=== PATIENT | female | born 1980 | race Caucasian/White ===

== ENCOUNTER 2017-01-08 17:02 | Observation (INO) ==
--- NOTE | 2017-01-08 17:48 | Emergency Department Note ---
Disposition Clinical Impression: Suicidal ideation, History of depression, History of anxiety Alcohol intoxication Qualifiers: Complication of substance-induced condition: uncomplicated Qualified Code(s): F10.120 - Alcohol abuse with intoxication, uncomplicated Disposition: Admitted As Inpatient Condition: Fair Time of Disposition: 19:25 Psych HPI - General Chief Complaint: ED Psychiatric Symptoms Stated Complaint: psych Time Seen by Provider: 01/08/17 17:24 Source: patient, family Mode of arrival: ambulatory Limitations: no limitations Nursing Notes Reviewed: Yes Vital Signs Reviewed: Yes - History of Present Illness HPI Narrative: Patient is a 36-year-old female with past medical history of anxiety and depression. She presents today due to depression, suicidal ideation. She says that she has drank "a lot of alcohol today." She says that she is feeling down and has suicidal thoughts. She will not tell me how much she drank today. She would also not tell me any further detail about what is causing her to be depressed or anxious. She denies any other chest pain, shortness breath, nausea , vomiting, fevers, diarrhea, abdominal pain. She has been admitted to [facility] the past per patient. She does not take any daily medications for anxiety and depression. - Related Data Home Medications Medication Instructions Recorded Confirmed No Known Home Drugs 07/10/16 01/08/17 Allergies Allergy/AdvReac Type Severity Reaction Status Date / Time diphenhydramine Allergy Rash Verified 08/16/16 21:06 [From Benadryl] Penicillins [PCN] Allergy Rash Verified 08/16/16 21:06 All systems ED: reviewed and negative except as stated. Constitutional: Denies: fever Cardiovascular: Denies: chest pain, palpitations Respiratory: Denies: cough, dyspnea Gastrointestinal: Denies: abdominal pain, nausea, vomiting, diarrhea Genitourinary: Denies: urgency, dysuria Musculoskeletal: Denies: back pain Integumentary: Denies: rash Psychiatric: Reports: anxiety, depression, suicidal thoughts. Denies: homicidal thoughts, auditory hallucinations, visual hallucinations Past Medical History - Past Medical History Attestation: Yes The following information was validated with the patient. Source: patient Medical history: Reports: no medical history Surgical history: Reports: non-contributory Psychiatric history: Reports: anxiety, depression MEDICAL DOCTOR MD history: Reports: no MEDICAL DOCTOR MD history - Social History Smoking Status: Current every day smoker Smokeless Tobacco Status: No Alcohol use: Reports: heavy, recent Drug use: Reports: none Physical Exam - General Limitations: no limitations General appearance: alert, other (Intoxicated) - Head Head exam: atraumatic, normocephalic, normal inspection - Eye Eye exam: Present: normal appearance, PERRL, EOMI - ENT ENT exam: normal exam, normal oropharynx, mucous membranes moist - Neck Neck exam: Present: normal inspection, full ROM, trachea midline - Chest Chest inspection: Present: normal inspection, symmetric chest wall rise - Respiratory Respiratory exam: Present: normal lung sounds bilaterally - Cardiovascular Cardiovascular exam: Present: regular rate, normal rhythm, normal heart sounds - Abdominal Exam Abdominal exam: Present: soft, Non-Tender. Absent: tenderness, distention, guarding, rebound, rigidity - Extremities Exam Extremities exam: Present: other (Small amount of bruising on the right forearm on the dorsal aspect. No tenderness to palpation or bony abnormality appreciated) - Neurological Exam Neurological exam: Present: alert, oriented X3 - Psychiatric Psychiatric exam: Present: depressed, anxious, suicidal ideation, other (Crying on exam). Absent: homicidal ideation - Skin Skin exam: Present: warm, dry, intact, normal color Course Course Narrative: Vitals within normal limits. Physical exam shows intoxicated patient, actively crying on exam. Physical exam shows a small amount of bruising on the right forearm. She will not answer any questions about how or why she has bruising there. Otherwise, the rest of the physical exam was fairly benign. We will obtain medical clearance labs and then consult [facility] for evaluation. 18:42 Patient labs show mild decrease in sodium and chloride, not concerning. WIll give IV fluids per patient request. Alcohol level 410. [facility] will not see patient until alcohol level <80. 19:15 Paged hospitalist due to prolonged time for getting patient to <80 level (calculated approx 21 hours if she clears at 15 units/hr). They have accepted the patient for admission. [place] slip was placed on the patient's chart. Dr. Carrero accepted. [facility] will need to be consulted on floor after patient alcohol level decreases below 80. Vital Signs Temperature 98.3 F 01/08/17 17:05 Pulse Rate 103 01/08/17 17:05 Respiratory Rate 18 01/08/17 17:05 Blood Pressure 123/83 01/08/17 17:05 O2 Sat by Pulse Oximetry 97 01/08/17 17:05 Temperature 98.3 F 01/08/17 17:05 Pulse Rate 103 01/08/17 18:24 Respiratory Rate 18 01/08/17 18:24 Blood Pressure 123/83 01/08/17 18:24 O2 Sat by Pulse Oximetry 97 01/08/17 18:24 Oxygen Delivery Oxygen Delivery Room Air Psych - MDM Narrative Medical decision making narrative: Vitals within normal limits. Physical exam shows intoxicated patient, actively crying on exam. Physical exam shows a small amount of bruising on the right forearm. She will not answer any questions about how or why she has bruising there. Otherwise, the rest of the physical exam was fairly benign. We will obtain medical clearance labs and then consult [facility] for evaluation. 18:42 Patient labs show mild decrease in sodium and chloride, not concerning. WIll give IV fluids per patient request. Alcohol level 410. [facility] will not see patient until alcohol level <80. 19:15 Paged hospitalist due to prolonged time for getting patient to <80 level (calculated approx 21 hours if she clears at 15 units/hr). They have accepted the patient for admission. [place] slip was placed on the patient's chart. Dr. Carrero accepted. [facility] will need to be consulted on floor after patient alcohol level decreases below 80. - Medical Records Medical records reviewed: Yes I reviewed the patient's medical records. - Lab Data Lab results reviewed: Yes I reviewed the patient's lab results. Result diagrams: 01/08/17 17:46 01/08/17 17:46 Lab Results 01/08/17 01/08/17 01/08/17 Range/Units 17:46 17:46 18:14 WBC 3.4 L (4.3-11.1) K/mcL RBC 3.87 (3.82-4.97) M/mcL Hgb 13.7 (11.5-15.4) g/dL Hct 39.2 (35.3-44.9) % MCV 101.3 H (83.0-100.0) fL MCH 35.4 H (28.0-33.3) pg MCHC 34.9 (31.6-35.5) g/dL RDW 13.0 (11.5-14.5) % Plt Count 105 L (140-400) K/mcL MPV 9.2 L (9.4-12.4) fL Immature Gran % 0.3 (0-4) % Seg Neutrophils % 47.7 % Lymphocytes % 41.2 % Monocytes % 9.9 % Eosinophils % 0.0 % Basophils % 0.9 % Neutrophils # 1.6 (1.6-8.9) K/mcL Lymphocytes # 1.4 (0.6-4.6) K/mcL Monocytes # 0.3 (0.0-1.3) K/mcL Eosinophils # 0.0 (0.0-0.6) K/mcL Basophils # 0.0 (0.0-0.2) K/mcL Sodium 135 L (136-145) mEq/L Potassium 3.6 (3.5-4.5) mEq/L Chloride 93 L (98-109) mEq/L Carbon Dioxide 14 L (19-29) mEq/L BUN 12 (7-20) mg/dL Creatinine 0.57 (0.57-1.11) mg/dL Est GFR ( Amer) > 60 (> 60) Est GFR (Non-Af Amer) > 60 (> 60) BUN/Creatinine Ratio 21 (6-26) Glucose 60 L (70-99) mg/dL Calculated Osmolality 278 L (280-300) Calcium 9.3 (8.6-10.8) mg/dL Urine Color Dark Yellow (Yellow) Urine Clarity Cloudy A (Clear) Urine pH 5.5 (5.0-8.0) pH Units Ur Specific [place] 1.027 H (1.010-1.025) Urine Protein 100 H (Neg-Trace) mg/dL Urine Glucose (UA) Normal (Normal) mg/dL Urine Ketones >=160 H (Negative) mg/dL Urine Blood Moderate H (Negative) Urine Nitrite Negative (Negative) Urine Bilirubin Negative (Negative) Urine Urobilinogen Normal (Normal) mg/dL Ur Leukocyte Esterase Negative (Negative) Urine Microscopic RBC 3-5 H (0-3) per hpf Urine Microscopic WBC 0-3 (0-3) per hpf Ur Squamous Epith Cells Many H (None-Few) per lpf Urine Bacteria Few (None-Few) per hpf Hyaline Casts None Seen (None-Few) per lpf Salicylates < 5.0 L (15-30) mg/dL Urine Opiates Screen (Fakcrp=205) ng/mL Acetaminophen < 1.0 L (10-30) mcg/mL Ur Barbiturates Screen (Xuyqfm=549) ng/mL Ur Phencyclidine Scrn (Cutoff=25) ng/mL Ur Amphetamines Screen (Pxwgrj=4481) ng/mL U Benzodiazepines Scrn (Qxfhlo=449) ng/mL Urine Cocaine Screen (Cutoff= 300) ng/mL U Marijuana (THC) Screen (Cutoff = 50) ng/mL Ethyl Alcohol 419 H (0-10) mg/dL 01/08/17 Range/Units 18:14 WBC (4.3-11.1) K/mcL RBC (3.82-4.97) M/mcL Hgb (11.5-15.4) g/dL Hct (35.3-44.9) % MCV (83.0-100.0) fL MCH (28.0-33.3) pg MCHC (31.6-35.5) g/dL RDW (11.5-14.5) % Plt Count (140-400) K/mcL MPV (9.4-12.4) fL Immature Gran % (0-4) % Seg Neutrophils % % Lymphocytes % % Monocytes % % Eosinophils % % Basophils % % Neutrophils # (1.6-8.9) K/mcL Lymphocytes # (0.6-4.6) K/mcL Monocytes # (0.0-1.3) K/mcL Eosinophils # (0.0-0.6) K/mcL Basophils # (0.0-0.2) K/mcL Sodium (136-145) mEq/L Potassium (3.5-4.5) mEq/L Chloride (98-109) mEq/L Carbon Dioxide (19-29) mEq/L BUN (7-20) mg/dL Creatinine (0.57-1.11) mg/dL Est GFR ( Amer) (> 60) Est GFR (Non-Af Amer) (> 60) BUN/Creatinine Ratio (6-26) Glucose (70-99) mg/dL Calculated Osmolality (280-300) Calcium (8.6-10.8) mg/dL Urine Color (Yellow) Urine Clarity (Clear) Urine pH (5.0-8.0) pH Units Ur Specific [place] (1.010-1.025) Urine Protein (Neg-Trace) mg/dL Urine Glucose (UA) (Normal) mg/dL Urine Ketones (Negative) mg/dL Urine Blood (Negative) Urine Nitrite (Negative) Urine Bilirubin (Negative) Urine Urobilinogen (Normal) mg/dL Ur Leukocyte Esterase (Negative) Urine Microscopic RBC (0-3) per hpf Urine Microscopic WBC (0-3) per hpf Ur Squamous Epith Cells (None-Few) per lpf Urine Bacteria (None-Few) per hpf Hyaline Casts (None-Few) per lpf Salicylates (15-30) mg/dL Urine Opiates Screen Negative (Hacnmc=335) ng/mL Acetaminophen (10-30) mcg/mL Ur Barbiturates Screen Negative (Dvreuz=744) ng/mL Ur Phencyclidine Scrn Negative (Cutoff=25) ng/mL Ur Amphetamines Screen Negative (Tiwpbd=4985) ng/mL U Benzodiazepines Scrn Negative (Ncazac=128) ng/mL Urine Cocaine Screen Negative (Cutoff= 300) ng/mL U Marijuana (THC) Screen Negative (Cutoff = 50) ng/mL Ethyl Alcohol (0-10) mg/dL Psychiatric Medical Clearance - Medical Clearance Checklist Does the patient have a NEW psychiatric condition?: No Any abnormalities indicating possible medical illness?: No Any history of medical issues?: No Medical History: No Social History Section defined Any abnormal vital signs prior to transfer?: No Current Vitals: Last Vital Signs Temp 98.3 F 01/08/17 17:05 Pulse 103 01/08/17 18:24 Resp 18 01/08/17 18:24 BP 123/83 01/08/17 18:24 Pulse Ox 97 01/08/17 18:24 Is the patient intoxicated or cognitively impaired?: Yes Psychiatric Lab Panel: Drug Levels and Toxicity 01/08/17 01/08/17 17:46 18:14 Urine Opiates Screen Negative Acetaminophen < 1.0 L Ur Barbiturates Screen Negative Ur Phencyclidine Scrn Negative Ur Amphetamines Screen Negative U Benzodiazepines Scrn Negative Urine Cocaine Screen Negative U Marijuana (THC) Screen Negative Ethyl Alcohol 419 H Abnormal Labs: Abnormal lab results WBC 3.4 K/mcL (4.3-11.1) L 01/08/17 17:46 MCV 101.3 fL (83.0-100.0) H 01/08/17 17:46 MCH 35.4 pg (28.0-33.3) H 01/08/17 17:46 Plt Count 105 K/mcL (140-400) L 01/08/17 17:46 MPV 9.2 fL (9.4-12.4) L 01/08/17 17:46 Sodium 135 mEq/L (136-145) L 01/08/17 17:46 Chloride 93 mEq/L (98-109) L 01/08/17 17:46 Carbon Dioxide 14 mEq/L (19-29) L 01/08/17 17:46 Glucose 60 mg/dL (70-99) L 01/08/17 17:46 Calculated Osmolality 278 (280-300) L 01/08/17 17:46 Urine Clarity Cloudy (Clear) A 01/08/17 18:14 Ur Specific [place] 1.027 (1.010-1.025) H 01/08/17 18:14 Urine Protein 100 mg/dL (Neg-Trace) H 01/08/17 18:14 Urine Ketones >=160 mg/dL (Negative) H 01/08/17 18:14 Urine Blood Moderate (Negative) H 01/08/17 18:14 Urine Microscopic RBC 3-5 per hpf (0-3) H 01/08/17 18:14 Ur Squamous Epith Cells Many per lpf (None-Few) H 01/08/17 18:14 Salicylates < 5.0 mg/dL (15-30) L 01/08/17 17:46 Acetaminophen < 1.0 mcg/mL (10-30) L 01/08/17 17:46 Ethyl Alcohol 419 mg/dL (0-10) H 01/08/17 17:46 S.B.A.R. - S.B.A.R. Situation: Demographics, MOA Background: Presenting Complaint, Relevant PMH, Meds, & Allergies Assessment: Vital Signs, Course and respsone to treatment, Exam Concerns, Patient/Family Expectation, Pertinant Lab Results, Outstanding Labs Recommendation: Barrier(s) to disposition, Recommendation based on pending studies, treatments, or consults S.B.A.R. Repor Time: 19:26 Attestation Statement - Attestation Attestation: I, Clint Islas, examined this patient and my medical decision-making was reviewed with the SITE OPERATIONS MANAGER/PA/Advanced Practice Nurse/Resident Physician. I agree with the documented findings, disposition and treatment plan as described except to the extent set forth below. 36-year-old female presents to the emergency department intoxicated feeling anxious and depressed. Patient admits to suicidal ideation initially and then denies it. She did not have a plan. Patient reports she is significantly depressed because her brother and father within the past year. Patient states she drank "a large amount of alcohol" today. Patient denies audio or visual hallucinations. Patient denies chest pain, shortness of breath, rash, abdominal pain, palpitations, vaginal bleeding, vaginal discharge, diarrhea. Patient's alcohol level was significantly elevated. She will be admitted to the hospital for further care and evaluation and evaluation by psychiatric team once she is sober at 8 AM.
[2017-01-08 17:56] LABS: Basophils % 0.9 %; Hematocrit 39.2 % (35.3-44.9); Hemoglobin 13.7 g/dL (11.5-15.4); Immature Granulocytes % 0.3 % (0-4); Lymphocytes # 1.4 K/mcL (0.6-4.6); Lymphocytes % 41.2 %; Mean Corpuscular HGB Conc 34.9 g/dL (31.6-35.5); Mean Corpuscular Hemoglobin 35.4 pg (28.0-33.3); Mean Corpuscular Volume 101.3 fL (83.0-100.0); Mean Platelet Volume 9.2 fL (9.4-12.4); Monocytes # 0.3 K/mcL (0.0-1.3); Monocytes % 9.9 %; Neutrophils # 1.6 K/mcL (1.6-8.9); Platelet Count 105 K/mcL (140-400); Red Blood Count 3.87 M/mcL (3.82-4.97); Segmented Neutrophils % 47.7 %
[2017-01-08 18:11] LABS: BUN/Creatinine Ratio 21 (6-26); Blood Urea Nitrogen 12 mg/dL (7-20); Calcium 9.3 mg/dL (8.6-10.8); Carbon Dioxide 14 mEq/L (19-29); Chloride 93 mEq/L (98-109); Ethanol 419 mg/dL (0-10); Glucose 60 mg/dL (70-99); Osmolality,Calculated 278 (280-300); Potassium 3.6 mEq/L (3.5-4.5); Sodium 135 mEq/L (136-145); eGFR For African Americans > 60 (> 60); eGFR For Non-African Americans > 60 (> 60)
[2017-01-08 18:17] LABS: Acetaminophen < 1.0 mcg/mL (10-30); Salicylate < 5.0 mg/dL (15-30)
[2017-01-08 18:22] LABS: Bilirubin,Urine Negative (Negative); Blood,Urine Moderate (Negative); Clarity,Urine Cloudy (Clear); Color,Urine Dark Yellow (Yellow); Glucose,Urine (UA) Normal (Normal); Ketones,Urine >=160 mg/dL (Negative); Leukocyte Esterase,Urine Negative (Negative); Nitrite,Urine Negative (Negative); PH,Urine 5.5 pH Units (5.0-8.0); Protein,Urine 100 mg/dL (Neg-Trace); Specific Gravity,Urine 1.027 (1.010-1.025); Urobilinogen,Urine Normal (Normal)
[2017-01-08 18:24] LABS: Bacteria,Urine Few per hpf (None-Few); Hyaline Casts,Urine None Seen per lpf (None-Few); Squamous Epithelial Cell,Urine Many per lpf (None-Few); WBC,Urine 0-3 per hpf (0-3)
[2017-01-08 18:28] LABS: Amphetamine Screen,Urine Negative ng/mL (Cutoff=1000); Barbiturate Screen,Urine Negative ng/mL (Cutoff=200); Benzodiazepines Screen,Urine Negative ng/mL (Cutoff=200); Cannabinoid Screen,Urine Negative ng/mL (Cutoff = 50); Cocaine Screen,Urine Negative ng/mL (Cutoff= 300); Opiate Screen,Urine Negative ng/mL (Cutoff=300); Phencyclidine Screen,Urine Negative ng/mL (Cutoff=25)
[2017-01-08] MEDS ORDERED: 0.9 % Sodium Chloride 1,000 ML IVC ONE (18:56)
[2017-01-08] MEDS ORDERED: *HR* LORazepam 2 MG/ML VIAL IVP PRN (21:43)
--- NOTE | 2017-01-08 21:51 | Internal Med History&Physical ---
Date of Encounter: 01/08/17 Time of Encounter: 21:48 Assessment and Plan (1) Suicidal ideation Current visit: Yes Status: Acute Sitter or be present at that site. Suicide precautions. Psychiatry evaluation. (2) Alcohol intoxication Current visit: Yes Status: Acute Patient drinks alcohol approximately 3 times a week. Alcohol level today is 420. She was admitted to hospital until she is sober and will be transferred to psych floor for further evaluation. Doubt that the patient will withdraw the next couple days. No prior history of local withdrawal symptoms or seizures Qualifiers: Complication of substance-induced condition: uncomplicated Qualified Code(s ): F10.120 - Alcohol abuse with intoxication, uncomplicated Internal Medicine - H&P: HPI Chief complaint: alcohol intoxication History of present illness: Ms. Stanley is a 36 year old female rock to the emergency room after binge alcohol drinking. Patient has lots of family problems and has been binge drinking alcohol more frequently recently. She drinks approximately 3 times a week. She has some ideas of not wishing to live. No active plan. Denies any overdose on any medications. Blood-alcohol level in the ER was 420. She will be hospitalized for a few hours until she is sober and will be transferred to the second-floor. Patient denies any other complaints. Past Med Surg Social Fam HX - Past Medical History Medical history: no medical history Psychiatric history: anxiety, depression - Past Surgical History Surgical History: non-contributory - Social History Smoking Status: Current every day smoker Smokeless Tobacco Status: No Alcohol use: heavy, recent Drug use: none Internal Medicine - H&P: Meds No Known Home Drugs 07/10/16 [History] Allergies diphenhydramine [From Benadryl] Allergy (Verified 08/16/16 21:06) Rash Penicillins [PCN] Allergy (Verified 08/16/16 21:06) Rash All Systems PM: A 10-system review of systems was performed and is negative for pertinent findings except as documented above in the HPI. Review of systems: 10 point review of systems is negative except for HPI. - Constitutional Vitals: Temp Pulse Resp BP Pulse Ox 98.3 F 103 18 123/83 97 01/08/17 17:05 01/08/17 18:24 01/08/17 18:24 01/08/17 18:24 01/08/17 18:24 Exam: Gen.: patient is alert oriented times 3 not in distress. Cardiac: normal S1 S2 no additional sounds chest: clear to auscultation abdomen: soft nontender nondistended lower extremity: lax calf muscles. Neuro: No focal deficits. Internal Med - H&P Results - Labs CBC & Chem 7: 01/08/17 17:46 01/08/17 17:46
[2017-01-09] MEDS: Ondansetron 4 MG/2 ML VIAL IVP PRN ×2 (00:02→09:22)
[2017-01-09] MEDS ORDERED: *HR* LORazepam 2 MG/ML VIAL IVP PRN ×2 (00:08)
[2017-01-09] MEDS: Nicotine 21 MG PATCH.TD24 TD SCH ×2 (00:17→09:25)
[2017-01-09] MEDS: Famotidine 20 MG/2 ML VIAL IVP SCH ×2 (06:27→16:14)
[2017-01-09 08:23] LABS: BUN/Creatinine Ratio 13 (6-26); Blood Urea Nitrogen 7 mg/dL (7-20); Calcium 8.7 mg/dL (8.6-10.8); Carbon Dioxide 20 mEq/L (19-29); Chloride 94 mEq/L (98-109); Ethanol 51 mg/dL (0-10); Glucose 66 mg/dL (70-99); Magnesium 1.1 mg/dL (1.6-2.6); Osmolality,Calculated 272 (280-300); Potassium 3.5 mEq/L (3.5-4.5); Sodium 133 mEq/L (136-145); eGFR For African Americans > 60 (> 60); eGFR For Non-African Americans > 60 (> 60)
[2017-01-09] MEDS ORDERED: Magnesium Sulfate 2 GM in D5% in Water 100 ML IVPB ONE (08:59)
[2017-01-09] MEDS ORDERED: Thiamine (B-1) 100 MG TABLET PO SCH (09:00)
[2017-01-09] MEDS: Folic Acid 1 MG TABLET PO SCH (09:26)
--- NOTE | 2017-01-09 11:48 | Discharge Summary ---
Date of Encounter: 01/09/17 Time of Encounter: 11:45 - Discharge Diagnosis (1) Suicidal ideation Priority: Primary Status: Acute (2) Alcohol intoxication Priority: Primary Status: Acute Qualifiers: Complication of substance-induced condition: uncomplicated Qualified Code(s ): F10.120 - Alcohol abuse with intoxication, uncomplicated - Discharge Medications Prescriptions: Famotidine [Pepcid] 20 mg PO DAILY #30 tab Ondansetron [Zofran] 4 mg PO Q8H PRN #10 tab PRN Reason: Nausea And Vomiting Home Medications: Famotidine [Pepcid] 20 mg PO DAILY #30 tab 01/09/17 [Rx] Ondansetron [Zofran] 4 mg PO Q8H PRN #10 tab 01/09/17 [Rx] Allergies/Adverse Reactions: Allergies diphenhydramine [From Benadryl] Allergy (Verified 08/16/16 21:06) Rash Penicillins [PCN] Allergy (Verified 08/16/16 21:06) Rash Date of admission: 01/08/17 21:14 Primary care physician: PCP NO Consults: 01/08/17 21:41 Consult to Psychiatry [CONS] Routine Consulting Provider: Psychiatry Heather Reason for Consult: suicidal ideation. Call Completed: No 01/09/17 11:34 Consult to Digital Printer Operator [CONS] Routine Reason for SW Consult: alcohol resources. - Patient Status Disposition: Transfer Psychiatric Hosp Condition: Fair Overall status at discharge: patient is progressing back to baseline - Discharge Instructions Follow Up With: NO,PCP [Primary Care Provider] - Interval History: Patient presented yesterday to the hospital after binge alcohol drinking and her blood-alcohol level was for 20. She had suicidal thoughts. Plan was to transfer to psych or once patient is more sober. Blood-alcohol level this morning is 52. She should be able to be transferred to the psych floor. Patient is having some epigastric pain nausea and vomiting likely related to alcoholic gastritis. No evidence of G.I. bleeding. A magnesium was 1.1 this will be replaced and rechecked. Patient does not show any current signs of alcohol withdrawal. Plan to transfer to psych floor for further psychiatric evaluation today. He has been depressed because of multiple family issues. Hospital course: Ms. Stanley is a 36 year old female - Time Spent with Patient Total time spent providing and/or coordinating discharge services: - Constitutional Vitals: Temp Pulse Resp BP Pulse Ox 98.9 F 85 15 126/80 98 01/09/17 07:59 01/09/17 07:59 01/09/17 07:59 01/09/17 07:59 01/09/17 07:59 Exam: Gen.: patient is alert oriented times 3 not in distress. Cardiac: normal S1 S2 no additional sounds or murmurs chest: fair air entry. no active wheezing. No crackles or bronchial breathing. abdomen: soft nontender nondistended normal bowel sounds neuro: no focal deficit
[2017-01-09 13:24] LABS: Magnesium 2.3 mg/dL (1.6-2.6); Potassium 3.5 mEq/L (3.5-4.5)
[2017-01-09] MEDS ORDERED: Mag Hydrox/Al Hydrox/Simeth 30 ML UDC PO PRN (13:26)
[2017-01-09] MEDS: *HR* Promethazine 25 MG/ML VIAL IVP PRN (14:04)
--- NOTE | 2017-01-09 15:10 | Psychiatry Progress Note ---
Date of Encounter: 01/09/17 Time of Encounter: 14:30 Subjective Interval history: Patient is 36 years old female admitted to the medical service for evaluation and treatment of" intoxication with a level of 420 mg./dl, in addition while intoxicated patient made suicidal comments. Psychiatric consultation was requested to evaluate suicidal ideation. On interview with the patient denied any suicidal intent or plans denied any history of previous suicide attempts and she denied any previous history of psychiatric treatment for depression or anxiety. Patient was guarded and uncooperative with evaluation and seem irritable. There are no records related to any previous treatment or psychiatric issues. Patient admitted to alcohol dependence and did not answer any questions regarding previous treatments. Objective: Exam Patient orientation: Yes Person, Yes Time, Yes Place Level of alertness: Alert, Sedated Patient appearance: Appropriate, Unkempt, Disheveled, Thin Behavior: anxious, uncooperative, guarded Psychomotor activity: Slowed Eye contact: Avoids Eye Contact Mood description: Anxious, Irritable Affect description: congruent with mood, labile, dysphoric Speech pattern: Normal rate, Normal rhythm, Normal tone, Limited Speech volume: Normal Thought process: Linear, Goal Oriented Thought content: No Suicidal ideation, No Homicidal ideation, No Overt delusions Perceptual disturbances: No Auditory hallucinations, No Visual hallucinations Judgment: Fair Insight: Partial Results - Vital Signs Vital Signs: Temp Pulse Resp BP Pulse Ox 98.5 F 89 16 123/84 99 01/09/17 12:02 01/09/17 12:02 01/09/17 12:02 01/09/17 12:02 01/09/17 12:02 - Drug Levels and Toxicology Drug Levels and Toxicology: Drug Levels and Toxicity 01/09/17 07:56 Ethyl Alcohol 51 H - Labs Labs: Laboratory Results - last 24 hr 01/09/17 01/09/17 07:56 13:03 Sodium 133 L Potassium 3.5 3.5 Chloride 94 L Carbon Dioxide 20 BUN 7 Creatinine 0.53 L Est GFR ( Amer) > 60 Est GFR (Non-Af Amer) > 60 BUN/Creatinine Ratio 13 Glucose 66 L 98 Calculated Osmolality 272 L Calcium 8.7 Magnesium 1.1 L 2.3 Ethyl Alcohol 51 H Assessment and Plan (1) Alcohol intoxication Current visit: Yes Status: Acute Plan: Continue hospitalization, Close observation, Suicide Precautions per unit protocol, Encourage participation in unit milieu, Group Therapy, Monitor sleep, Monitor appetite Additional Plan: Recommend referral to alcohol rehabilitation service. No psychiatric issue at this time. Qualifiers: Complication of substance-induced condition: uncomplicated Qualified Code(s ): F10.120 - Alcohol abuse with intoxication, uncomplicated Consult Discharge Plan - Plan Referrals: NO,PCP [Primary Care Provider] - Prescriptions: Famotidine [Pepcid] 20 mg PO DAILY #30 tab Ondansetron [Zofran] 4 mg PO Q8H PRN #10 tab PRN Reason: Nausea And Vomiting
[2017-01-09] MEDS: diazePAM 10 MG TABLET PO PRN (16:14)
[2017-01-09] MEDS ORDERED: Thiamine (B-1) 100 MG, Folic Acid 1 MG, MVI, adult with vitamin K 10 ML in 0.9 % Sodi... IVPB SCH (18:00)
[2017-01-10] MEDS: *HR* Promethazine 25 MG/ML VIAL IVP PRN (00:13)
[2017-01-10] MEDS: diazePAM 10 MG TABLET PO PRN (00:13)
[2017-01-10] MEDS: Famotidine 20 MG/2 ML VIAL IVP SCH (05:42)
[2017-01-10 07:01] VITALS: BP 126/94
[2017-01-10] MEDS: Folic Acid 1 MG TABLET PO SCH (08:09)
[2017-01-10] MEDS: Nicotine 21 MG PATCH.TD24 TD SCH (08:09)
--- NOTE | 2017-01-10 10:50 | Discharge Summary ---
Date of Encounter: 01/10/17 Time of Encounter: 10:44 - Discharge Diagnosis (1) Suicidal ideation Priority: Secondary Status: Acute (2) Alcohol intoxication Priority: Primary Status: Acute Qualifiers: Complication of substance-induced condition: uncomplicated Qualified Code(s ): F10.120 - Alcohol abuse with intoxication, uncomplicated (3) History of depression Priority: Secondary Status: Acute (4) History of anxiety Priority: Secondary Status: Acute (5) Hypomagnesemia Priority: Secondary Status: Acute - Discharge Medications Prescriptions: Famotidine [Pepcid] 20 mg PO DAILY #30 tab Ondansetron [Zofran] 4 mg PO Q8H PRN #10 tab PRN Reason: Nausea And Vomiting Home Medications: Famotidine [Pepcid] 20 mg PO DAILY #30 tab 01/09/17 [Rx] Ondansetron [Zofran] 4 mg PO Q8H PRN #10 tab 01/09/17 [Rx] Allergies/Adverse Reactions: Allergies diphenhydramine [From Benadryl] Allergy (Verified 08/16/16 21:06) Rash Penicillins [PCN] Allergy (Verified 08/16/16 21:06) Rash Date of admission: 01/08/17 21:14 Primary care physician: PCP NO Consults: 01/08/17 21:41 Consult to Psychiatry [CONS] Routine Consulting Provider: Psychiatry Heather Reason for Consult: suicidal ideation. Call Completed: Akilah 01/09/17 11:34 Consult to Asbestos Remover [CONS] Routine Reason for SW Consult: alcohol resources. - Patient Status Disposition: Home, Self-Care Condition: Good Functional capacity at discharge: independent ambulation Overall status at discharge: patient is back to baseline - Discharge Instructions Follow Up With: AKILAH,PCP [Primary Care Provider] - Subhash Jewell DO [Resident] - Additional Instructions: Avoid excessive alcohol use. Refrain from cigarette smoking. Please get an appointment with the resident clinic within the next 2 weeks. - Diet and Activity Activity: increase activity as tolerated Diet: advance to your usual diet Hospital course: Ms. Stanley is a 36 year old female with no significant past medical history, recently undergoing a stressful social and familial situation who was brought to the hospital last night and found to be intoxicated. At the time of admission was documented that she expressed suicidal ideation. She was admitted to the medical service. She was treated with IV fluids and IV magnesium for hypomagnesemia. She was given thiamine and folic acid. She was placed under one-to-one safety observation. Psychiatry was consulted and they cleared her for discharge. They noted no acute psychiatric problem. Today the patient strongly denies any suicidal thoughts or ideation. She denies any history of psychiatric disease. Denies any prior suicidal attempts. I have had a long conversation with her about her alcohol intake. I have advised cessation of alcohol intake. I have advised her to stop smoking. She has good social support system including friends and grandmother and her boyfriend. She will be discharged home. - Time Spent with Patient Total time spent providing and/or coordinating discharge services: Greater than 30 minutes - Constitutional Vitals: Temp Pulse Resp BP Pulse Ox 98.2 F 89 16 126/94 99 01/10/17 07:00 01/10/17 07:00 01/10/17 07:00 01/10/17 07:00 01/10/17 07:30 General appearance: Present: A&O X 3 - Respiratory Respiratory exam: Present: CTAB. Absent: accessory muscle use, rales, rhonchi, wheezes - Cardiovascular Cardiovascular exam: Present: RRR, +S1, +S2. Absent: diastolic murmur, gallop, rubs, systolic murmur
== END 2017-01-10 11:35 | disposition home or self-care (01) ==
LOC: EMEROO 17:02 → 3BNU 17:02 → SUATTDRO 21:14 → 3BNU 22:15
PROVIDERS: ADMIT Hospitalist; ATTEND Internal Medicine

== ENCOUNTER 2017-02-12 13:28 | Inpatient (IN) ==
[2017-02-12 14:13] LABS: Hematocrit 36.8 % (35.3-44.9); Hemoglobin 13.6 g/dL (11.5-15.4); Mean Corpuscular Hemoglobin 35.5 pg (28.0-33.3); Mean Corpuscular Volume 96.1 fL (83.0-100.0); Mean Platelet Volume 11.5 fL (9.4-12.4); Platelet Count 120 K/mcL (140-400); Red Blood Count 3.83 M/mcL (3.82-4.97); Red Cell Distribution Width 11.9 % (11.5-14.5)
[2017-02-12 14:31] LABS: Calcium 8.7 mg/dL (8.6-10.8); Ethanol 35 mg/dL (0-10)
[2017-02-12 14:32] LABS: Acetaminophen < 1.0 mcg/mL (10-30); Salicylate < 5.0 mg/dL (15-30)
[2017-02-12 14:35] LABS: Potassium 2.5 mEq/L (3.5-4.5)
[2017-02-12] MEDS: 0.9 % Sodium Chloride 1,000 ML IVC SCH ×6 (14:38→17:21)
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
[2017-02-12 15:22] LABS: Albumin/Globulin Ratio 0.8 (1.1-2.2); Bilirubin,Direct 3.8 mg/dL (0.0-0.5); Bilirubin,Indirect 1.1 mg/dL (0.0-1.2); Bilirubin,Total 4.9 mg/dL (0.2-1.2)
[2017-02-12] MEDS ORDERED: Ondansetron 4 MG/2 ML VIAL IVP ONE (15:48)
[2017-02-12] MEDS ORDERED: Pantoprazole 40 MG VIAL IVP ONE (16:10)
[2017-02-12] MEDS ORDERED: Octreotide 50 MCG/ML SYRINGE IVP ONE (16:10)
--- NOTE | 2017-02-12 16:31 | Pulmonology History & Physical ---
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 Ethyl alcohol level currently 35. Patient is a lethargic and slow to answer questions, poor historian. Suspect is secondary to intoxication. Patient is very cachectic and frail, with a dissheveled appearance. Sensation intact, able to follow commands and move all 4 extremities. Pulmonary: Patient has been vomiting and coughing, chest x-ray reveals no acute process, infiltrate or effusion. On exam patient has coarse rhonchi, pt is at risk for aspiration. We will continue to monitor Cardiovascular: Patient is tachycardic with a regular rhythm, patient does not appear hypovolemic on exam. GI: Patient with history of alcoholism, last drink was several shots of vodka last evening. Patient has hepatomegaly, pancreatitis with a lipase of 3463, hematemesis, stool occult blood positive, lactate 9. Patient is nauseous and vomiting kalyan blood during the interview. There is concern for alcohol cirrhosis and possible esophageal varices. With her constant retching she has at risk to have rupture of varices if they are present. Plan to keep her NPO, treat her nausea with Zofran, octreotide and Protonix drip, will hydrate her with 1 L NS at 125 an hour, and lactate. Plan to have 4 L of blood typed and crossmatched in case she develops acute esophageal varices bleeding overnight. Dr. Mandel has been consulted and is aware of the patient. Renal:JULY: SCr 1.85, patient also received contrast dye during abdominal CT. Patient is hypokalemic and hyponatremic with an elevated lactate at 9 and an anion gap of 32. Will replete potassium, patient has received 1 L normal saline , will give second liter at 125 an hour. Trend lactate level and repeat labs in the morning awaiting serum osmolality. ID: No leukocytosis, no evidence of infection Heme/Onc: Hematemesis, stool occult blood positive, H/H stable. 4 units on hold if patient has acute esophageal rupture overnight. Will monitor CBC Endocrine: Stable DVT Prophylaxis: scds Nutrition: NPO GI Prophylaxis: protonix gtt Lines: all lines checked and no evidence of infections Skin: skin care to prevent pressure ulcers per nursing routine care. CODE STATUS: FULL CODE Qualifiers: Pancreatitis type: alcohol induced Acute pancreatitis complication: no infection or necrosis Qualified Code(s): K85.20 - Alcohol induced acute pancreatitis without necrosis or infection (2) Hematemesis with nausea Current visit: Yes Status: Acute (3) Acute renal failure Current visit: Yes Status: Acute Qualifiers: Acute renal failure type: unspecified Qualified Code(s): N17.9 - Acute kidney failure, unspecified (4) Alcohol intoxication Current visit: Yes Status: Acute Qualifiers: Complication of substance-induced condition: with unspecified complication Qualified Code(s): F10.129 - Alcohol abuse with intoxication, unspecified (5) Hyponatremia Current visit: Yes Status: Acute (6) Hypokalemia Current visit: Yes Status: Acute (7) Occult blood positive stool Current visit: Yes Status: Acute History of Present Illness Chief complaint: Ear pain HPI: Ms. Stanley is a 36 year old female with a PMH of alcoholism who presents from her primary care clinic with concerns from her PCP of hypotension, dehydration, lethargy and possible sepsis. The patient stats that she has been "unable to walk" secondary to dizziness for the last 4 days. She states that for the last 2 days she has had diffuse, non-radiating aching abdominal with associated nausea and hematemesis. Her pain is constant and she is unable to keep anything down. She states that she has had a declining appetite for several weeks. She normally drinks about one bottle of wine daily. Last night she had several shots of vodka. She denies significant medical history. Per her uncle she does have a history of alcoholism and has been through AA but is still drinking and she did not drink today but did drink last night and her uncle said that she did not between one half and one fifth of vodka per day. Patient does not use IV drugs. The patient is very lethargic during the interview and a poor historian. Past Med Surg Social Fam HX - Past Medical History Medical history: no medical history Psychiatric history: anxiety, depression - Past Surgical History Surgical History: non-contributory - Social History Smoking Status: Current some day smoker Smokeless Tobacco Status: No Alcohol use: occasionally Drug use: none - Family History Father Hx Family Cardiac Disorders: Yes (HTN, aneurism) Medications and Allergies Ibuprofen [Motrin] 400 mg PO Q6-8H PRN 02/12/17 [History] Allergies diphenhydramine [From Benadryl] Allergy (Verified 01/24/17 08:16) Rash Penicillins [PCN] Allergy (Verified 01/24/17 08:16) Rash All Systems: A 10-system review of systems was performed and is negative for pertinent findings except as documented above in the HPI. - Constitutional Constitutional: anorexia, fatigue, weakness, no chills, no excessive sweating, no fever(s), no headache(s) - EENT Eyes: no loss of peripheral vision, no loss of vision Ears: other (ear pain) Nose, mouth and throat: dizziness, no headache(s) - Cardiovascular Cardiovascular: lightheadedness, no chest pain, no dyspnea, no leg edema - Respiratory Respiratory: cough, hemoptysis, no dyspnea - Gastrointestinal Gastrointestinal: hematemesis, nausea, vomiting, no diarrhea, no melena - Genitourinary Genitourinary: no dysuria - Musculoskeletal Musculoskeletal: weakness, no back pain, no numbness, no tingling - Integumentary Integumentary: no erythema, no rash - Neurological Neurological: dizziness, weakness ("unable to walk") - Hematologic/Lymphatic Hematologic/Lymphatic: no easy bruising Physical Examination General appearance: lethargic, other (cachectic and dissheveled) Eyes: nonicteric ENT: oropharynx dry Neck: supple, no lymphadenopathy, no JVD Effort: normal Auscultation: right: rhonchi Cardiovascular: other (tachycardic with a regular rhythm) Gastrointestinal: hypoactive bowel sounds, soft, tender (diffuse), non-distended Integumentary: other (multiple excoriations) Extremities: no cyanosis, no edema, no clubbing, pulses normal, cool Musculoskeletal: no deformities pupils equal and round, other (patiet is lethargic ) other (flat affect) Results - Laboratory Findings CBC and BMP: 02/12/17 14:04 02/12/17 14:04 Abnormal lab findings: Abnormal lab results MCH 35.5 pg (28.0-33.3) H 02/12/17 14:04 MCHC 37.0 g/dL (31.6-35.5) H 02/12/17 14:04 Plt Count 120 K/mcL (140-400) L 02/12/17 14:04 Sodium 121 mEq/L (136-145) L 02/12/17 14:04 Potassium 2.5 mEq/L (3.5-4.5) L* 02/12/17 14:04 Chloride 78 mEq/L (98-109) L 02/12/17 14:04 Carbon Dioxide 11 mEq/L (19-29) L 02/12/17 14:04 BUN 21 mg/dL (7-20) H 02/12/17 14:04 Creatinine 1.85 mg/dL (0.57-1.11) H 02/12/17 14:04 Est GFR ( Amer) 38 (> 60) L 02/12/17 14:04 Est GFR (Non-Af Amer) 31 (> 60) L 02/12/17 14:04 Glucose 101 mg/dL (70-99) H 02/12/17 14:04 Calculated Osmolality 255 (280-300) L 02/12/17 14:04 Lactic Acid 9.0 mmol/L (0.5-2.2) H* 02/12/17 14:04 Total Bilirubin 4.9 mg/dL (0.2-1.2) H 02/12/17 14:04 Direct Bilirubin 3.8 mg/dL (0.0-0.5) H 02/12/17 14:04 AST 467 Units/L (5-34) H 02/12/17 14:04 ALT 73 Units/L (0-55) H 02/12/17 14:04 Alkaline Phosphatase 322 Units/L (38-126) H 02/12/17 14:04 Albumin 3.0 g/dL (3.5-5.0) L 02/12/17 14:04 Globulin 4.0 g/dL (2.4-3.5) H 02/12/17 14:04 Albumin/Globulin Ratio 0.8 (1.1-2.2) L 02/12/17 14:04 Lipase 3463 Units/L (8-78) H 02/12/17 14:04 Salicylates < 5.0 mg/dL (15-30) L 02/12/17 14:04 Acetaminophen < 1.0 mcg/mL (10-30) L 02/12/17 14:04 Ethyl Alcohol 35 mg/dL (0-10) H 02/12/17 14:04 - Diagnostic Findings Chest x-ray: report reviewed, image reviewed Additional studies: Chest X-Ray 02/12/17 13:46 IMPRESSION: Unremarkable chest without acute cardiopulmonary process. D/ / Rinku Aly MD / Rinku Aly MD Interpreting Provider: Rinku Aly MD Head CT 02/12/17 13:46 IMPRESSION: No acute intracranial abnormality. D/ / 02/12/2017 15:14:34 Kyle Hernandez MD / Larisa Ho Interpreting Provider: Kyle Hernandez MD Abdomen/Pelvis CT 02/12/17 13:52 IMPRESSION: Marked inflammatory changes are seen surrounding the body and tail of the pancreas, and minimally adjacent to the head of the pancreas concerning for possible acute pancreatitis. Correlate with pancreatic enzymes. There is also a small amount of left upper quadrant fluid, as well as a small volume of pelvic ascites, though to a lesser degree than on the previous study in 2016. Uncertain if this fluid may be reactive to the acute inflammatory process around the pancreas, or FA could be related to liver congestion.. There is hepatomegaly with diffuse hepatic steatosis. D/ / Rinku Aly MD / Rinku Aly MD Interpreting Provider: Rinku Aly MD <Farhat Singh - Last Filed: 02/12/17 17:49> Date of Encounter: 02/12/17 History of Present Illness HPI: Ms. Stanley is a 36 year old female All Systems: A 10-system review of systems was performed and is negative for pertinent findings except as documented above in the HPI. Physical Examination Vital Signs: Vital Signs, Last 4 Hours Pulse Resp BP Pulse Ox 02/12/17 17:22 18 111/95 02/12/17 16:37 18 16 108/78 96 Results - Laboratory Findings CBC and BMP: 02/12/17 14:04 02/12/17 14:04 Abnormal lab findings: Abnormal lab results MCH 35.5 pg (28.0-33.3) H 02/12/17 14:04 MCHC 37.0 g/dL (31.6-35.5) H 02/12/17 14:04 Plt Count 120 K/mcL (140-400) L 02/12/17 14:04 Sodium 121 mEq/L (136-145) L 02/12/17 14:04 Potassium 2.5 mEq/L (3.5-4.5) L* 02/12/17 14:04 Chloride 78 mEq/L (98-109) L 02/12/17 14:04 Carbon Dioxide 11 mEq/L (19-29) L 02/12/17 14:04 BUN 21 mg/dL (7-20) H 02/12/17 14:04 Creatinine 1.85 mg/dL (0.57-1.11) H 02/12/17 14:04 Est GFR ( Amer) 38 (> 60) L 02/12/17 14:04 Est GFR (Non-Af Amer) 31 (> 60) L 02/12/17 14:04 Glucose 101 mg/dL (70-99) H 02/12/17 14:04 POC Glucose 91 (58-89) H 02/12/17 17:31 Serum Osmolality 273 mOsm/kg (280-300) L 02/12/17 17:05 Calculated Osmolality 255 (280-300) L 02/12/17 14:04 Lactic Acid 5.0 mmol/L (0.5-2.2) H* 02/12/17 17:05 Total Bilirubin 4.9 mg/dL (0.2-1.2) H 02/12/17 14:04 Direct Bilirubin 3.8 mg/dL (0.0-0.5) H 02/12/17 14:04 AST 467 Units/L (5-34) H 02/12/17 14:04 ALT 73 Units/L (0-55) H 02/12/17 14:04 Alkaline Phosphatase 322 Units/L (38-126) H 02/12/17 14:04 Albumin 3.0 g/dL (3.5-5.0) L 02/12/17 14:04 Globulin 4.0 g/dL (2.4-3.5) H 02/12/17 14:04 Albumin/Globulin Ratio 0.8 (1.1-2.2) L 02/12/17 14:04 Lipase 3463 Units/L (8-78) H 02/12/17 14:04 Stool Occult Blood Positive (Negative) A 02/12/17 16:00 Salicylates < 5.0 mg/dL (15-30) L 02/12/17 14:04 Acetaminophen < 1.0 mcg/mL (10-30) L 02/12/17 14:04 Ethyl Alcohol 35 mg/dL (0-10) H 02/12/17 14:04 - Attending Attestation I examined the patient reviewed documentation. All pertinent radiographic and laboratory studies were reviewed. I agree with the resident's documentation with the following addition. Neuro: Somewhat lethargic and delivered speech most likely related to acute alcohol intoxication. Patient's overall appearance is suggestive long-term alcohol abuse. Plan for [place] protocol although would not expect onset of alcohol withdrawal bruits 24 more hours. Also obtain UDS. Cardiovascular: Tachycardic and initially reported hypotensive by ED. Hemodynamic stable following relatively low volume resuscitation. Pulmonary: Oxygenating apparently ventilating well. Chest x-ray does not indicate any acute process. Nephro: Acute kidney injury, anion gap metabolic acidosis, hyponatremia, hypokalemia. Acidosis most likely related to elevated serum lactate. Given alcohol history and unknown ingestions, plan to calculate [place] gap for evidence of other alcohol ingestion. Continue volume resuscitation with normal saline 125 mL per hour for 1-2 L. Obtain urologic [place]. Insert [place] catheter to monitor strict I's and O's. Obtain blood gas will assessment of acid base. Bedtime patient arrives in ICU, serum lactate head are decreased from 9 to 5. Expect that anion gap will improve his well with lactic clearance. The serum bicarbonate remains low, consider initiation of bicarbonate drip. GI: Abdominal pain with elevated lipase and radiographic evidence of pancreatic necrosis with history of excessive alcohol consumption. Consistent with pancreatitis. Keep patient nothing by mouth begin volume resuscitation. Hematemesis witnessed during interview and ED. Given known EtOH history suspect possible early onset cirrhosis and consider the possibility of esophageal varices versus gastric erosion or ulceration. Type and cross 4 units PRBC and initiate PPI and octreotide drips. GI has been consult. ID: Possible upper GI bleed and no evidence of ascites. No evidence of active infection. No indication Pedvax this time. HO: Concern for upper GI bleed. Patient had across her 4 units PRBCs. Coags pending. If evidence of coagulopathy, consider reversal with FFP or PCC. Endocrine: Known history of DM. Disposition admit to MICU
[2017-02-12] MEDS ORDERED: Naloxone 0.4 MG/ML INJ IVP PRN (16:33)
[2017-02-12] MEDS ORDERED: 0.9 % Sodium Chloride 1,000 ML IVC SCH (16:45)
[2017-02-12] MEDS ORDERED: *HR* HYDROmorphone (PF) 1 MG/ML SYRINGE IVP ONE (17:30)
[2017-02-12] MEDS: Pantoprazole 40 MG in 0.9 % Sodium Chloride Mini Bag 100 ML IVC SCH ×2 (17:32→22:10)
[2017-02-12] MEDS ORDERED: *HR* LORazepam 2 MG/ML VIAL IVP PRN (17:32)
[2017-02-12] MEDS: Octreotide 400 MCG in 0.9 % Sodium Chloride 100 ML IVC SCH (17:46)
[2017-02-12 17:56] LABS: ABG Base Excess -5.6 mEq/L (-2.0 to 3.0); ABG Oxygen Saturation 96 % (95-98); ABG PCO2 25 mmHg (35-45); ABG PH 7.44 pH Units (7.32-7.45); ABG PO2 76 mmHg (85-104); ABG TCO2 17.8 mEq/L (20-26)
[2017-02-12 17:57] LABS: Blood Gas FiO2 21 %
[2017-02-12 18:26] LABS: Creatinine,Urine 153 mg/dL
[2017-02-12 18:30] LABS: Chloride,Urine < 20 mEq/L; Sodium, Urine < 20.0 mEq/L
[2017-02-12] MEDS: Thiamine (B-1) 100 MG, Folic Acid 1 MG, MVI, adult with vitamin K 10 ML in 0.9 % Sodi... IVPB SCH (18:45)
[2017-02-12 18:54] LABS: INR 1.3; Prothrombin Time 14.3 Seconds (9.4-12.1)
[2017-02-12 18:56] LABS: Activated Partial Thrombo Time 31.2 Seconds (26.0-36.0)
[2017-02-12 19:07] LABS: Osmolality,Urine 416 mOsm/kg (300-1090)
[2017-02-12] MEDS ORDERED: *HR* Morphine 2 MG/ML SYRINGE IVP PRN (21:50)
[2017-02-12] MEDS: *HR* LORazepam 2 MG/ML VIAL IVP PRN (21:52)
[2017-02-12] MEDS ORDERED: 0.9 % Sodium Chloride w KCl 20 MEQ/1,000 ML MLS IVC SCH (22:00)
[2017-02-12 22:53] LABS: Bilirubin,Urine Large (Negative); Blood,Urine Large (Negative); Clarity,Urine Cloudy (Clear); Color,Urine Orange (Yellow); Glucose,Urine (UA) Normal (Normal); Ketones,Urine 40 mg/dL (Negative); Leukocyte Esterase,Urine Small (Negative); Nitrite,Urine Positive (Negative); Protein,Urine 100 mg/dL (Neg-Trace); Specific Gravity,Urine > 1.030 (1.010-1.025); Urobilinogen,Urine Normal (Normal)
[2017-02-12 22:55] LABS: Bacteria,Urine Many per hpf (None-Few); Squamous Epithelial Cell,Urine Many per lpf (None-Few); WBC,Urine 30-50 per hpf (0-3)
[2017-02-12 22:59] LABS: Amphetamine Screen,Urine Negative ng/mL (Cutoff=1000); Barbiturate Screen,Urine Negative ng/mL (Cutoff=200); Benzodiazepines Screen,Urine Negative ng/mL (Cutoff=200); Cannabinoid Screen,Urine Negative ng/mL (Cutoff = 50); Cocaine Screen,Urine Negative ng/mL (Cutoff= 300); Opiate Screen,Urine Negative ng/mL (Cutoff=300); Phencyclidine Screen,Urine Negative ng/mL (Cutoff=25)
[2017-02-12 23:03] LABS: Hyaline Casts,Urine Moderate per lpf (None-Few)
[2017-02-12 23:03] LABS: BUN/Creatinine Ratio 16 (6-26); Blood Urea Nitrogen 19 mg/dL (7-20); Calcium 7.8 mg/dL (8.6-10.8); Carbon Dioxide 12 mEq/L (19-29); Chloride 88 mEq/L (98-109); Glucose 73 mg/dL (70-99); Osmolality,Calculated 257 (280-300); Sodium 123 mEq/L (136-145); eGFR For African Americans > 60 (> 60); eGFR For Non-African Americans 52 (> 60)
[2017-02-12 23:04] LABS: Chol/HDL Ratio 36.2 (0-4.9); Cholesterol 181 mg/dL (< 200); HDL Cholesterol 5 mg/dL (40-59); Triglycerides 1248 mg/dL (< 150)
[2017-02-12 23:04] LABS: RBC,Urine 0-3 per hpf (0-3)
[2017-02-13] MEDS: *HR* LORazepam 2 MG/ML VIAL IVP PRN ×3 (01:15→06:08)
[2017-02-13 02:14] LABS: Red Blood Count 3.25 M/mcL (3.82-4.97)
[2017-02-13 02:16] LABS: Basophils % 0.4 %; Hematocrit 31.8 % (35.3-44.9); Hemoglobin 11.3 g/dL (11.5-15.4); Immature Platelets 16.4 % (1.1-6.1); Lymphocytes # 0.5 K/mcL (0.6-4.6); Lymphocytes % 10.6 %; Mean Corpuscular HGB Conc 35.5 g/dL (31.6-35.5); Mean Corpuscular Hemoglobin 34.8 pg (28.0-33.3); Mean Corpuscular Volume 97.8 fL (83.0-100.0); Mean Platelet Volume 12.1 fL (9.4-12.4); Monocytes # 0.3 K/mcL (0.0-1.3); Monocytes % 6.3 %; Neutrophils # 4.1 K/mcL (1.6-8.9); Nucleated Red Blood Cells 1.2 /100 WBC (0); Red Cell Distribution Width 12.5 % (11.5-14.5); Segmented Neutrophils % 80.7 %
[2017-02-13 02:19] LABS: Platelet Count 95 K/mcL (140-400)
[2017-02-13 02:29] LABS: Blood Urea Nitrogen 16 mg/dL (7-20); Chloride 93 mEq/L (98-109); Potassium 2.9 mEq/L (3.5-4.5); Sodium 124 mEq/L (136-145)
[2017-02-13 02:30] LABS: Alanine Aminotransferase 65 Units/L (0-55); Albumin 2.4 g/dL (3.5-5.0); Albumin/Globulin Ratio 0.8 (1.1-2.2); Alkaline Phosphatase 285 Units/L (38-126); Aspartate Amino Transferase 440 Units/L (5-34); BUN/Creatinine Ratio 18 (6-26); Bilirubin,Total 4.7 mg/dL (0.2-1.2); Calcium 7.1 mg/dL (8.6-10.8); Globulin 3.1 g/dL (2.4-3.5); Glucose 78 mg/dL (70-99); Magnesium 1.2 mg/dL (1.6-2.6); Osmolality,Calculated 258 (280-300); eGFR For African Americans > 60 (> 60); eGFR For Non-African Americans > 60 (> 60)
[2017-02-13 02:33] LABS: Total Protein 5.5 g/dL (6.0-8.3)
[2017-02-13 02:34] LABS: Carbon Dioxide 9 mEq/L (19-29)
[2017-02-13 02:37] LABS: Platelet Estimate Decreased (Normal)
[2017-02-13] MEDS ORDERED: Magnesium Sulfate 2 GM in D5% in Water 100 ML IVPB ONE (02:44)
[2017-02-13] MEDS ORDERED: 0.9 % Sodium Chloride w KCl 40 MEQ/1,000 ML MLS IVC SCH (02:45)
[2017-02-13] MEDS: Pantoprazole 40 MG in 0.9 % Sodium Chloride Mini Bag 100 ML IVC SCH ×5 (02:59→23:51)
[2017-02-13 05:12] LABS: VBG HCO3 8.5 mEq/L (21-27); VBG PH 7.26 pH Units (7.32-7.42)
[2017-02-13] MEDS: Ondansetron 4 MG/2 ML VIAL IVP PRN (06:07)
--- NOTE | 2017-02-13 07:43 | Pulmonology Progress Note ---
<Mickie River - Last Filed: 02/13/17 10:55> Date of Encounter: 02/13/17 Time of Encounter: 07:40 Assessment and Plan (1) Acute pancreatitis Current Visit: Yes Status: Acute MANAGER PSYCHOLOGY: Patient has a history of alcoholism, drink multiple shots of vodka yesterday evening. Patient is a lethargic and slow to answer questions, poor historian, very cachectic and frail, with a dissheveled appearance. Sensation intact, able to follow commands and move all 4 extremities. She does not always follow commands accurately. Fine tremor noted. Patient on CIWA protocol with increased CIWA scores of 11, 10 overnight and was given ativan. Suspect withdrawl, continue CIWA protocol. Pulmonary: Patient has been vomiting and coughing, chest x-ray reveals no acute process, infiltrate or effusion. On exam patient has coarse rhonchi, pt is at risk for aspiration. We will continue to monitor Cardiovascular: Patient is tachycardic with a regular rhythm, patient does not appear hypovolemic on exam. GI: Patient with history of alcoholism, last drink was several shots of vodka . Patient has hepatomegaly, pancreatitis with a lipase of 3463, hematemesis, stool occult blood positive, lactate 9. Lactate has normalized, no emesis overnight.There is concern for alcohol cirrhosis and possible esophageal varices. 4L blood on hold. Plan to keep her NPO, treat her nausea with Zofran, octreotide and Protonix drip. Dr. Mandel has been consulted and is aware of the patient. Renal:JULY resolved. UOP 870 since admission. Lactate has normalized, AG 22. Patient is hypokalemic and hyponatremic. Will replete potassium and sodium, on electrolyte protocol. Will start bicarb gtt in D5 at 125 an hour. Will monitor CO closely until her AG closes. ID: No leukocytosis, patient does have a bacteruria, will treat with ceftriaxone 1gm daily Heme/Onc: Hematemesis, stool occult blood positive, H/H stable. No hematemesis or stool overnight. 4 units on hold if patient has acute esophageal rupture overnight. Will monitor CBC Endocrine: BS in 70's, ketones in urine. AG persists at 22, Bicarb 9. May be alcoholic ketosis. Will give amp D50 and start bicarb gtt in D5 at 125/hr, hypoglycemia protocol DVT Prophylaxis: scds Nutrition: NPO GI Prophylaxis: protonix gtt Lines: all lines checked and no evidence of infections: corona, peripheral IV. Will place EPIV as patient pulled out one of her peripherals Skin: skin care to prevent pressure ulcers per nursing routine care. CODE STATUS: FULL CODE Qualifiers: Pancreatitis type: alcohol induced Acute pancreatitis complication: no infection or necrosis Qualified Code(s): K85.20 - Alcohol induced acute pancreatitis without necrosis or infection (2) Hematemesis with nausea Current Visit: Yes Status: Acute (3) Acute renal failure Current Visit: Yes Status: Acute Qualifiers: Acute renal failure type: unspecified Qualified Code(s): N17.9 - Acute kidney failure, unspecified (4) Alcohol intoxication Current Visit: Yes Status: Acute Qualifiers: Complication of substance-induced condition: with unspecified complication Qualified Code(s): F10.129 - Alcohol abuse with intoxication, unspecified (5) Hyponatremia Current Visit: Yes Status: Acute (6) Hypokalemia Current Visit: Yes Status: Acute (7) Occult blood positive stool Current Visit: Yes Status: Acute Subjective Principal diagnosis: Hematemesis, Acute Pancreatitis Interval history: The patient was seen and examined today. She is lethargic and arouses slowly to voice. She states that her abdomen hurts and that she is tired. She did become tachycardic, tachypnic with increased temp and tremors overnight. She was given ativan per CIWA protocol and symptoms improved. She did not have any episodes of emesis or BM overnight. Objective PUL Vital signs: Last Vital Signs Temp 100.8 F H 02/13/17 04:00 Pulse 111 02/13/17 06:00 Resp 20 02/13/17 06:00 BP 139/104 02/13/17 06:00 Pulse Ox 97 02/13/17 06:00 General appearance: lethargic, asleep Eyes: icteric ENT: oropharynx dry Neck: supple, no lymphadenopathy, no JVD Effort: normal Auscultation: right: rhonchi Cardiovascular: other (tachycardic, sinus rhythm) Gastrointestinal: hypoactive bowel sounds, tender Integumentary: other (multiple excoriations) Extremities: no cyanosis, no edema, pulses normal, cool Musculoskeletal: no deformities pupils equal and round, motor strength normal and symmetric, other (patient follows commands, does not have appropriate response to commands every time.) other (lethargic, flat affect) Results - Laboratory Findings CBC and BMP: 02/13/17 02:02 02/13/17 09:41 ABG ABG pH 7.44 pH Units (7.32-7.45) 02/12/17 17:40 ABG pCO2 25 mmHg (35-45) L 02/12/17 17:40 ABG pO2 76 mmHg (85-104) L 02/12/17 17:40 ABG O2 Saturation 96 % (95-98) 02/12/17 17:40 PT/INR, D-dimer PT 14.3 Seconds (9.4-12.1) H 02/12/17 18:12 Abnormal lab findings: Abnormal lab results RBC 3.25 M/mcL (3.82-4.97) L 02/13/17 02:02 Hgb 11.3 g/dL (11.5-15.4) L D 02/13/17 02:02 Hct 31.8 % (35.3-44.9) L 02/13/17 02:02 MCH 34.8 pg (28.0-33.3) H 02/13/17 02:02 Plt Count 95 K/mcL (140-400) L 02/13/17 02:02 Lymphocytes # 0.5 K/mcL (0.6-4.6) L 02/13/17 02:02 Nucleated RBCs/100 WBC 1.2 /100 WBC (0) H 02/13/17 02:02 Platelet Estimate Decreased (Normal) L 02/13/17 02:02 Immature Plt Fraction 16.4 % (1.1-6.1) H 02/13/17 02:02 PT 14.3 Seconds (9.4-12.1) H 02/12/17 18:12 ABG pCO2 25 mmHg (35-45) L 02/12/17 17:40 ABG pO2 76 mmHg (85-104) L 02/12/17 17:40 ABG HCO3 17.0 mEQ/L (21-27) L 02/12/17 17:40 ABG Total CO2 17.8 mEq/L (20-26) L 02/12/17 17:40 ABG Base Excess -5.6 mEq/L (-2.0 to 3.0) L 02/12/17 17:40 VBG pH 7.26 pH Units (7.32-7.42) L 02/13/17 05:02 VBG pCO2 19 mmHg (41-51) L 02/13/17 05:02 VBG pO2 161 mmHg (25-40) H 02/13/17 05:02 VBG HCO3 8.5 mEq/L (21-27) L 02/13/17 05:02 Sodium 124 mEq/L (136-145) L 02/13/17 02:02 Potassium 2.9 mEq/L (3.5-4.5) L 02/13/17 02:02 Chloride 93 mEq/L (98-109) L 02/13/17 02:02 Carbon Dioxide 9 mEq/L (19-29) L* 02/13/17 02:02 POC Glucose 91 (58-89) H 02/12/17 17:31 Serum Osmolality 273 mOsm/kg (280-300) L 02/12/17 17:05 Calculated Osmolality 258 (280-300) L 02/13/17 02:02 Calcium 7.1 mg/dL (8.6-10.8) L 02/13/17 02:02 Magnesium 1.2 mg/dL (1.6-2.6) L 02/13/17 02:02 Total Bilirubin 4.7 mg/dL (0.2-1.2) H 02/13/17 02:02 Direct Bilirubin 3.8 mg/dL (0.0-0.5) H 02/12/17 14:04 AST 440 Units/L (5-34) H 02/13/17 02:02 ALT 65 Units/L (0-55) H 02/13/17 02:02 Alkaline Phosphatase 285 Units/L (38-126) H 02/13/17 02:02 Serum Total Protein 5.5 g/dL (6.0-8.3) L D 02/13/17 02:02 Albumin 2.4 g/dL (3.5-5.0) L 02/13/17 02:02 Albumin/Globulin Ratio 0.8 (1.1-2.2) L 02/13/17 02:02 Triglycerides 1248 mg/dL (< 150) H 02/12/17 22:38 HDL Cholesterol 5 mg/dL (40-59) L 02/12/17 22:38 Cholesterol/HDL Ratio 36.2 (0-4.9) H 02/12/17 22:38 Lipase 3463 Units/L (8-78) H 02/12/17 14:04 Urine Color [place] (Yellow) A 02/12/17 22:15 Urine Clarity Cloudy (Clear) A 02/12/17 22:15 Ur Specific Fossil > 1.030 (1.010-1.025) H 02/12/17 22:15 Urine Protein 100 mg/dL (Neg-Trace) H 02/12/17 22:15 Urine Ketones 40 mg/dL (Negative) H 02/12/17 22:15 Urine Blood Large (Negative) H 02/12/17 22:15 Urine Nitrite Positive (Negative) A 02/12/17 22:15 Urine Bilirubin Large (Negative) H 02/12/17 22:15 Ur Leukocyte Esterase Small (Negative) H 02/12/17 22:15 Urine Microscopic WBC 30-50 per hpf (0-3) H 02/12/17 22:15 Ur Squamous Epith Cells Many per lpf (None-Few) H 02/12/17 22:15 Urine Bacteria Many per hpf (None-Few) H 02/12/17 22:15 Hyaline Casts Moderate per lpf (None-Few) H 02/12/17 22:15 Ur Culture Indicated? YES (NO) A 02/12/17 22:15 Stool Occult Blood Positive (Negative) A 02/12/17 16:00 Salicylates < 5.0 mg/dL (15-30) L 02/12/17 14:04 Acetaminophen < 1.0 mcg/mL (10-30) L 02/12/17 14:04 Ethyl Alcohol 35 mg/dL (0-10) H 02/12/17 14:04 - Clinical Findings Intake & Output: Intake & Output 02/12/17 02/12/17 02/13/17 15:59 23:59 07:59 Intake Total 1999 1115.2 / 1115.2 Output Total 390 / 390 400 / 400 Balance 1610 / 1610 715.2 / 715.2 Weight 41.5 kg Consult Discharge Plan - Plan Referrals: Dejan Ratliff MD [Primary Care Provider] - <Farhat Singh - Last Filed: 02/13/17 15:41> Date of Encounter: 02/13/17 Objective PUL Vital signs: Last Vital Signs Temp 99.3 F 02/13/17 11:00 Pulse 108 02/13/17 15:23 Resp 18 02/13/17 15:00 BP 108/74 02/13/17 15:00 Pulse Ox 95 02/13/17 15:00 Results - Laboratory Findings CBC and BMP: 02/13/17 02:02 02/13/17 09:41 ABG ABG pH 7.44 pH Units (7.32-7.45) 02/12/17 17:40 ABG pCO2 25 mmHg (35-45) L 02/12/17 17:40 ABG pO2 76 mmHg (85-104) L 02/12/17 17:40 ABG O2 Saturation 96 % (95-98) 02/12/17 17:40 PT/INR, D-dimer PT 14.3 Seconds (9.4-12.1) H 02/12/17 18:12 Abnormal lab findings: Abnormal lab results RBC 3.25 M/mcL (3.82-4.97) L 02/13/17 02:02 Hgb 11.3 g/dL (11.5-15.4) L D 02/13/17 02:02 Hct 31.8 % (35.3-44.9) L 02/13/17 02:02 MCH 34.8 pg (28.0-33.3) H 02/13/17 02:02 Plt Count 95 K/mcL (140-400) L 02/13/17 02:02 Lymphocytes # 0.5 K/mcL (0.6-4.6) L 02/13/17 02:02 Nucleated RBCs/100 WBC 1.2 /100 WBC (0) H 02/13/17 02:02 Platelet Estimate Decreased (Normal) L 02/13/17 02:02 Immature Plt Fraction 16.4 % (1.1-6.1) H 02/13/17 02:02 PT 14.3 Seconds (9.4-12.1) H 02/12/17 18:12 ABG pCO2 25 mmHg (35-45) L 02/12/17 17:40 ABG pO2 76 mmHg (85-104) L 02/12/17 17:40 ABG HCO3 17.0 mEQ/L (21-27) L 02/12/17 17:40 ABG Total CO2 17.8 mEq/L (20-26) L 02/12/17 17:40 ABG Base Excess -5.6 mEq/L (-2.0 to 3.0) L 02/12/17 17:40 VBG pH 7.26 pH Units (7.32-7.42) L 02/13/17 05:02 VBG pCO2 19 mmHg (41-51) L 02/13/17 05:02 VBG pO2 161 mmHg (25-40) H 02/13/17 05:02 VBG HCO3 8.5 mEq/L (21-27) L 02/13/17 05:02 Sodium 124 mEq/L (136-145) L 02/13/17 02:02 Potassium 2.9 mEq/L (3.5-4.5) L 02/13/17 02:02 Chloride 93 mEq/L (98-109) L 02/13/17 02:02 Carbon Dioxide 11 mEq/L (19-29) L 02/13/17 09:41 POC Glucose 155 (58-89) H 02/13/17 11:45 Serum Osmolality 273 mOsm/kg (280-300) L 02/12/17 17:05 Calculated Osmolality 258 (280-300) L 02/13/17 02:02 Calcium 7.1 mg/dL (8.6-10.8) L 02/13/17 02:02 Total Bilirubin 4.7 mg/dL (0.2-1.2) H 02/13/17 02:02 Direct Bilirubin 3.8 mg/dL (0.0-0.5) H 02/12/17 14:04 AST 440 Units/L (5-34) H 02/13/17 02:02 ALT 65 Units/L (0-55) H 02/13/17 02:02 Alkaline Phosphatase 285 Units/L (38-126) H 02/13/17 02:02 Serum Total Protein 5.5 g/dL (6.0-8.3) L D 02/13/17 02:02 Albumin 2.4 g/dL (3.5-5.0) L 02/13/17 02:02 Albumin/Globulin Ratio 0.8 (1.1-2.2) L 02/13/17 02:02 Triglycerides 1248 mg/dL (< 150) H 02/12/17 22:38 HDL Cholesterol 5 mg/dL (40-59) L 02/12/17 22:38 Cholesterol/HDL Ratio 36.2 (0-4.9) H 02/12/17 22:38 Lipase 3463 Units/L (8-78) H 02/12/17 14:04 Urine Color [place] (Yellow) A 02/12/17 22:15 Urine Clarity Cloudy (Clear) A 02/12/17 22:15 Ur Specific [place] > 1.030 (1.010-1.025) H 02/12/17 22:15 Urine Protein 100 mg/dL (Neg-Trace) H 02/12/17 22:15 Urine Ketones 40 mg/dL (Negative) H 02/12/17 22:15 Urine Blood Large (Negative) H 02/12/17 22:15 Urine Nitrite Positive (Negative) A 02/12/17 22:15 Urine Bilirubin Large (Negative) H 02/12/17 22:15 Ur Leukocyte Esterase Small (Negative) H 02/12/17 22:15 Urine Microscopic WBC 30-50 per hpf (0-3) H 02/12/17 22:15 Ur Squamous Epith Cells Many per lpf (None-Few) H 02/12/17 22:15 Urine Bacteria Many per hpf (None-Few) H 02/12/17 22:15 Hyaline Casts Moderate per lpf (None-Few) H 02/12/17 22:15 Ur Culture Indicated? YES (NO) A 02/12/17 22:15 Stool Occult Blood Positive (Negative) A 02/12/17 16:00 Salicylates < 5.0 mg/dL (15-30) L 02/12/17 14:04 Acetaminophen < 1.0 mcg/mL (10-30) L 02/12/17 14:04 Ethyl Alcohol 35 mg/dL (0-10) H 02/12/17 14:04 - Clinical Findings Intake & Output: Intake & Output 02/12/17 02/13/17 02/13/17 23:59 07:59 15:59 Intake Total 1999 / 1999 1215.2 / 1215.2 1355 / 1355 Output Total 390 / 390 600 / 600 300 / 300 Balance 1610 / 1610 615.2 / 615.2 1055 / 1055 Weight 41.5 kg - Attending Attestation I examined the patient and reviewed documentation. All pertinent radiographic and laboratory data were reviewed. The patient was discussed in multidisciplinary Rounds and I agree with the resident's documentation of the following additions. Neuro: Agitation more likely related to abdominal pain and alcohol withdrawal given the time course of her last known intake and the fact that she had elevated serum alcohol time of admission. For today will plan to focus on analgesia for pancreatitis as opposed to benzodiazepine sedation for withdrawal. However, patient may be monitored overnight 48 hours two-week for evidence of alcohol withdrawal. Cardiovascular: Sinus tachycardia likely reactive to overall daily. Hemodynamically stable. Pulmonary: Oxygenating and ventilating well. Imaging is not indicative of any acute process. Nephro: Acute kidney injury resolved following fluid resuscitation. Anion gap metabolic acidosis remains. Suspect this is due to ketosis as lactate has cleared. Begin bicarbonate drip now. In addition, 1 amp of D50 with continued dextrose infusion with D5 carrier for bicarbonate drip. If ketones and anion gap fails to close, plan to initiate insulin drip. GI: Clinical, serological, and radiographic evidence of acute pancreatitis. Most likely cause is alcohol intake. Continue bowel rest and judicious volume replacement. Rapid resolution of JULY and lactatemia is somewhat reassuring. Liver associated enzymes trending toward normal today. Consider possibility of upper GI bleed given evidence of liver injury in the setting of known alcoholism. No recurrent hematemesis since admission. Case discussed with GI and octreotide discontinued. ID: Bacteriuria noted on UA. Asymptomatic plan to treat regardless given overall acuity. HO: No leukocytosis despite high acuity presentation. Drop in H&H following resuscitation would suggest some degree of hemoconcentration but this does not appear profound at this point. Endocrine: Relative hypoglycemia most likely related to long-standing poor intake and depletion of glycogen stores. Patient will receive D5 and 125 mL/h prior bicarbonate drip. MSK: Overall emaciated appearance probably due to long-term poor nutrition. Disposition: Patient remained in ICU. Critical care time 45 minutes
[2017-02-13] MEDS ORDERED: *HR* Dextrose 50 % in Water (Syg) 50 ML SYRINGE IVP ONE (07:57)
[2017-02-13] MEDS ORDERED: Sodium Bicarbonate 150 MEQ in D5% in Water 1,000 ML IVC SCH (08:00)
[2017-02-13] MEDS ORDERED: Magnesium Sulfate 2 GM in D5% in Water 100 ML IVPB PRN (08:01)
[2017-02-13] MEDS: Octreotide 400 MCG in 0.9 % Sodium Chloride 100 ML IVC SCH (08:45)
[2017-02-13] MEDS ORDERED: Folic Acid 1 MG in D5% in Water 50 ML IVPB SCH (09:00)
[2017-02-13] MEDS ORDERED: D5% in Water 1,000 ML IVC PRN (09:31)
[2017-02-13] MEDS ORDERED: Dextrose Gel 15 GM PO PRN ×2 (09:31)
[2017-02-13] MEDS ORDERED: *HR* Dextrose 50 % in Water (Syg) 50 ML SYRINGE IVP PRN (09:31)
[2017-02-13 10:42] LABS: Magnesium 1.9 mg/dL (1.6-2.6)
--- NOTE | 2017-02-13 11:30 | Gastroenterology Consult Note ---
<Robb Damon - Last Filed: 02/13/17 11:26> Date of Encounter: 02/13/17 Time of Encounter: 09:55 - Assessment and plan (1) Acute pancreatitis Current Visit: Yes Status: Acute Assessment and plan: Continue IV fluids, antiemetics, and pain control. Qualifiers: Pancreatitis type: alcohol induced Acute pancreatitis complication: no infection or necrosis Qualified Code(s): K85.20 - Alcohol induced acute pancreatitis without necrosis or infection (2) Hematemesis with nausea Current Visit: Yes Status: Acute Assessment and plan: Continue to monitor CBC. Hemoglobin currently stable at 11.3. Continue octreotide and Protonix drip. Likely secondary to alcoholic gastritis. Electrolytes abnormal with large anion gap, not a candidate for EGD at this time. (3) Occult blood positive stool Current Visit: Yes Status: Acute (4) Hyponatremia Current Visit: Yes Status: Acute (5) Hypokalemia Current Visit: Yes Status: Acute - Time Spent With Patient Total time spent is greater than 50% in coordination of care (as documented) at patient's floor/unit and/or counseling patient: GI History of Present Illness - Data of Consult Patient: new to practice Consult date: 02/13/17 Requesting Physician: Farhat Singh DO - Consult Narrative Reason for consult: hematemesis History of present illness: Ms. Stanley is a 36 year old female with PMHx of alcoholism who presented from her PCP with concerns of hypotension, dehydration, lethargy and possible sepsis. She reports for 2 days prior to admission, she had diffuse abdominal pain with nausea and hematemesis. She normally drinks one bottle of wine daily and the night prior to admission, she had several shots of vodka. Per her uncle she does have a history of alcoholism and has been through AA but is still drinking and she did not drink today but did drink last night and her uncle said that she did not between one half and one fifth of vodka per day. Patient does not use IV drugs. Procedures: None NSAIDs: Ibuprofen Anticoagulation: None Past Med Surg Social Fam HX - Past Medical History Medical history: no medical history Psychiatric history: anxiety, depression - Past Surgical History Surgical History: non-contributory - Social History Smoking Status: Current some day smoker Smokeless Tobacco Status: No Alcohol use: occasionally Drug use: none - Family History Father Hx Family Cardiac Disorders: Yes (HTN, aneurism) - Gastrointestinal Gastrointestinal: Present: as per HPI - Constitutional Constitutional: as per HPI - EENT Eyes: as per HPI Ears: Present: as per HPI Nose, mouth and throat: Present: as per HPI - Cardiovascular Cardiovascular ROS: Present: as per HPI - Respiratory Respiratory IM: Present: as per HPI - Genitourinary Genitourinary: Absent: change in color, Urinary frequency - Neurological ROS Neurological GI: Present: as per HPI - Hematologic/Lymphatic Hematologic/Lymphatic pediatric: Present: as per HPI - Musculoskeletal Musculoskeletal ROS GI: Present: as per HPI - Integumentary Integumentary GI: Present: as per HPI - Psychiatric ROS Psychiatric GI: Present: as per HPI - Endocrine Endocrine IM: Present: as per HPI - Constitutional Vitals: Temp Pulse Resp BP Pulse Ox 98.4 F 112 21 111/85 97 02/13/17 07:45 02/13/17 11:22 02/13/17 10:00 02/13/17 10:00 02/13/17 10:00 General appearance: Present: cooperative, A&O X 3, no acute distress, answers questions appropriately - Head Head exam: Present: atraumatic, normocephalic - Eye Eye exam: Present: normal appearance, sclera anicteric - ENT ENT exam: Present: mucous membranes dry - Neck Neck exam general surgery: Present: normal inspection, trachea midline - Respiratory Respiratory exam: Present: CTAB. Absent: rales, rhonchi - Cardiovascular Cardiovascular exam: Present: RRR, +S1, +S2 - GI/Abdominal GI/Abdominal exam: Present: normal bowel sounds, soft, tenderness, no peritoneal signs. Absent: distended, firm, guarding - Rectal Rectal exam: Present: deferred - Extremities Exam Extremities exam: Present: warm - Neurological Exam Neurological exam: Present: no focal deficits - Psychiatric Psychiatric exam: Present: normal affect, normal mood - Skin Skin exam: Present: dry, intact, normal color, warm Results - Labs CBC & Chem 7: 02/13/17 02:02 02/13/17 09:41 Labs: Last Result Calcium 7.1 mg/dL (8.6-10.8) L 02/13/17 02:02 Triglycerides 1248 mg/dL (< 150) H 02/12/17 22:38 Stool Occult Blood Positive (Negative) A 02/12/17 16:00 Salicylates < 5.0 mg/dL (15-30) L 02/12/17 14:04 Urine Opiates Screen Negative ng/mL ([id number]) 02/12/17 22:15 Entire Visit Hgb 11.3 g/dL (11.5-15.4) L D 02/13/17 02:02 Hct 31.8 % (35.3-44.9) L 02/13/17 02:02 PT 14.3 Seconds (9.4-12.1) H 02/12/17 18:12 Total Bilirubin 4.7 mg/dL (0.2-1.2) H 02/13/17 02:02 AST 440 Units/L (5-34) H 02/13/17 02:02 ALT 65 Units/L (0-55) H 02/13/17 02:02 Lipase 3463 Units/L (8-78) H 02/12/17 14:04 Acetaminophen < 1.0 mcg/mL (10-30) L 02/12/17 14:04 - ABG ABG results: ABG ABG pH 7.44 pH Units (7.32-7.45) 02/12/17 17:40 ABG pCO2 25 mmHg (35-45) L 02/12/17 17:40 ABG pO2 76 mmHg (85-104) L 02/12/17 17:40 ABG O2 Saturation 96 % (95-98) 02/12/17 17:40 PT/INR, D-dimer PT 14.3 Seconds (9.4-12.1) H 02/12/17 18:12 Consult Discharge Plan - Plan Referrals: Dejan Ratliff MD [Primary Care Provider] - <Soraya Mandel - Last Filed: 02/13/17 12:14> Date of Encounter: 02/13/17 Time of Encounter: 10:00 - Time Spent With Patient Total time spent is greater than 50% in coordination of care (as documented) at patient's floor/unit and/or counseling patient: GI History of Present Illness - Data of Consult Requesting Physician: Farhat Singh DO - Consult Narrative History of present illness: Ms. Stanley is a 36 year old female - Constitutional Vitals: Temp Pulse Resp BP Pulse Ox 99.3 F 111 21 116/87 97 02/13/17 11:00 02/13/17 12:00 02/13/17 12:00 02/13/17 12:00 02/13/17 12:00 Results - Labs CBC & Chem 7: 02/13/17 02:02 02/13/17 09:41 Labs: Last Result Calcium 7.1 mg/dL (8.6-10.8) L 02/13/17 02:02 Triglycerides 1248 mg/dL (< 150) H 02/12/17 22:38 Stool Occult Blood Positive (Negative) A 02/12/17 16:00 Salicylates < 5.0 mg/dL (15-30) L 02/12/17 14:04 Urine Opiates Screen Negative ng/mL ([id number]) 02/12/17 22:15 Entire Visit Hgb 11.3 g/dL (11.5-15.4) L D 02/13/17 02:02 Hct 31.8 % (35.3-44.9) L 02/13/17 02:02 PT 14.3 Seconds (9.4-12.1) H 02/12/17 18:12 Total Bilirubin 4.7 mg/dL (0.2-1.2) H 02/13/17 02:02 AST 440 Units/L (5-34) H 02/13/17 02:02 ALT 65 Units/L (0-55) H 02/13/17 02:02 Lipase 3463 Units/L (8-78) H 02/12/17 14:04 Acetaminophen < 1.0 mcg/mL (10-30) L 02/12/17 14:04 - ABG ABG results: ABG ABG pH 7.44 pH Units (7.32-7.45) 02/12/17 17:40 ABG pCO2 25 mmHg (35-45) L 02/12/17 17:40 ABG pO2 76 mmHg (85-104) L 02/12/17 17:40 ABG O2 Saturation 96 % (95-98) 02/12/17 17:40 PT/INR, D-dimer PT 14.3 Seconds (9.4-12.1) H 02/12/17 18:12 - Attending Attestation I examined this patient and my medical decision-making was reviewed with the STRIP CLEANER/PA/Advanced Practice Nurse/Resident Physician. I agree with the documented findings, disposition and treatment plan as described except to the extent set forth below. Pt with alcoholic pancreatitis along with severe electrolyte imbalance and metabolic acidosis. Low platelets are most probably due to ETOH Induced doubt that she has cirrhosis. Also small drop in the hemoglobin is due to IV fluid and there is no active bleeding at this point. Recommendation: DC octreotide continue PPI for now. Once electrolytes are better and if patient needs EGD then we will consider but there is no acute indication
[2017-02-13] MEDS ORDERED: Acetaminophen 650 MG RECTAL SUPP RC PRN (15:59)
[2017-02-13 16:29] LABS: BUN/Creatinine Ratio 10 (6-26); Blood Urea Nitrogen 7 mg/dL (7-20); Calcium 7.1 mg/dL (8.6-10.8); Carbon Dioxide 22 mEq/L (19-29); Chloride 93 mEq/L (98-109); Glucose 314 mg/dL (70-99); Osmolality,Calculated 276 (280-300); Potassium 3.1 mEq/L (3.5-4.5); eGFR For African Americans > 60 (> 60); eGFR For Non-African Americans > 60 (> 60)
[2017-02-13 17:02] LABS: Sodium 128 mEq/L (136-145)
--- NOTE | 2017-02-13 17:43 | Electrocardiograph Report ---
[address] [place], [place] [address] Test Date: 2017-02-12 Pat Name: Marietta Stanley Department: 102 Room: [facility] Gender: F Mask Former: : 1980 Requested By: Robb Gongora Order Number: [id number] Reading MD: Cherelle Krause Measurements Intervals [place] Rate: 86 P: 59 SD: 129 QRS: 74 QRSD: 92 T: 78 QT: 449 QTc: 492 Interpretive Statements SINUS RHYTHM ST DEVIATION AND MODERATE T-WAVE ABNORMALITY, CONSIDER ANTERIOR ISCHEMIA ARTIFACT LIMITS ANALYSIS Electronically Signed On 02-13-2017 17:41:48 EDT by Cherelle Krause
[2017-02-13] MEDS: Insulin LISPRO 300 UNITS/3 ML VIAL SQ SCH ×2 (17:58→23:52)
[2017-02-13] MEDS: Ringers Solution, Lactated 1,000 ML IVC SCH (17:58)
[2017-02-13] MEDS: Thiamine (B-1) 100 MG, Folic Acid 1 MG, MVI, adult with vitamin K 10 ML in 0.9 % Sodi... IVPB SCH (17:59)
[2017-02-13] MEDS ORDERED: Insulin LISPRO 300 UNITS/3 ML VIAL SQ SCH (21:00)
[2017-02-14 00:07] LABS: Magnesium 2.2 mg/dL (1.6-2.6); Potassium 3.1 mEq/L (3.5-4.5)
[2017-02-14] MEDS: Ringers Solution, Lactated 1,000 ML IVC SCH ×4 (01:15→23:59)
[2017-02-14] MEDS: Pantoprazole 40 MG in 0.9 % Sodium Chloride Mini Bag 100 ML IVC SCH ×5 (04:26→23:22)
[2017-02-14 06:27] LABS: Hematocrit 23.8 % (35.3-44.9); Mean Corpuscular HGB Conc 34.9 g/dL (31.6-35.5); Mean Corpuscular Hemoglobin 34.6 pg (28.0-33.3); Mean Corpuscular Volume 99.2 fL (83.0-100.0); Mean Platelet Volume 11.9 fL (9.4-12.4); Nucleated Red Blood Cells 0.6 /100 WBC (0); Platelet Count 126 K/mcL (140-400); Red Cell Distribution Width 13.2 % (11.5-14.5)
[2017-02-14 06:36] LABS: Alanine Aminotransferase 47 Units/L (0-55); Albumin 2.1 g/dL (3.5-5.0); Albumin/Globulin Ratio 0.9 (1.1-2.2); Alkaline Phosphatase 285 Units/L (38-126); Aspartate Amino Transferase 279 Units/L (5-34); BUN/Creatinine Ratio 8 (6-26); Bilirubin,Total 3.8 mg/dL (0.2-1.2); Calcium 7.9 mg/dL (8.6-10.8); Carbon Dioxide 27 mEq/L (19-29); Chloride 98 mEq/L (98-109); Globulin 2.4 g/dL (2.4-3.5); Glucose 113 mg/dL (70-99); Magnesium 2.1 mg/dL (1.6-2.6); Osmolality,Calculated 274 (280-300); Potassium 3.6 mEq/L (3.5-4.5); Sodium 133 mEq/L (136-145); Total Protein 4.5 g/dL (6.0-8.3); eGFR For African Americans > 60 (> 60); eGFR For Non-African Americans > 60 (> 60)
[2017-02-14 06:37] LABS: Blood Urea Nitrogen 4 mg/dL (7-20)
[2017-02-14 06:47] LABS: Hemoglobin 8.3 g/dL (11.5-15.4)
[2017-02-14] MEDS: Insulin LISPRO 300 UNITS/3 ML VIAL SQ SCH ×3 (06:53→18:39)
--- NOTE | 2017-02-14 09:02 | Pulmonology Progress Note ---
Date of Encounter: 02/14/17 Time of Encounter: 08:00 Assessment and Plan (1) Acute pancreatitis Current Visit: Yes Status: Acute Neuro: Alert and oriented on admission with no deficits. History of significant alcohol abuse. He is now approximately 48 hours since last alcohol intake. Nursing report overnight indicative of some slight hallucinations. Concerning for possible onset of alcohol withdrawal. Continue serial protocol. Cardiovascular: Slightly tachycardic but otherwise hemodynamic stable. Pulmonary: Oxygenating well. Nonlabored no acute issues. Nephro: Acute kidney injury with anion gap metabolic acidosis. JULY appeared prerenal based on low serum sodium. Now resolved. Anion gap metabolic acidosis most likely related to elevated lactate and ketosis. Both conditions improved with fluid resuscitation, dextrose infusion, and bicarbonate infusion. Continuing to receive IV fluid with lactated Ringer's. Urine output is adequate. GI: Acute pancreatitis with evidence of necrosis on CT. No evidence of infection at this point and antibiotics have been held. Patient has been kept NPO. Has not required analgesia since yesterday. Exam improving. Plan to begin tapering IV fluids today. May challenge gut tomorrow. ID: No evidence of infection with necrotic pancreas. UA did reveal bacteremia. Whether or not this reflects a true UTI is unclear. Elected to treat with Rocephin given overall acuity and her other issues. HO: Has shown a significant drop in hemoglobin since volume resuscitation was begun. This could be reflective of early hemoconcentration due to pancreatitis. No indication for transfusion at this time. No true leukocytosis , but white blood cell count has risen since yesterday. No intervention planned at this time. Endocrine: Transient hyperglycemia yesterday most likely secondary to dextrose infusions for treatment of ketosis. Sliding-scale insulin is initiated the patient is now almost euglycemic. Do not suspect that ongoing insulin therapy will be necessary. MSK: Emaciated appearance most likely due to chronic poor nutrition. Disposition: Appropriate for transfer to internal medicine. Chronic care time 40 minutes Qualifiers: Pancreatitis type: alcohol induced Acute pancreatitis complication: uninfected necrosis Qualified Code(s): K85.21 - Alcohol induced acute pancreatitis with uninfected necrosis (2) Metabolic acidosis with increased anion gap and accumulation of organic acids Current Visit: Yes Status: Resolved (3) Acute renal failure Current Visit: Yes Status: Resolved Qualifiers: Acute renal failure type: unspecified Qualified Code(s): N17.9 - Acute kidney failure, unspecified (4) Hematemesis with nausea Current Visit: Yes Status: Resolved Subjective Principal diagnosis: Acute Pancreatitis Interval history: 36-year-old female admitted on February 12 for acute pancreatitis and hematemesis. Also noted to have significantly elevated lactate and anion gap metabolic acidosis. Hematemesis resolved spontaneously. Octreotide drip has been discontinued. Pancreatitis is been treated with IV fluid replacement, bowel rest, and analgesia. Anion gap metabolic acidosis at least partly attributable to ketosis. This is been treated with infusions of dextrose and bicarbonate. Since admission patient has shown clinical improvement and is asleep this morning with no new complaint. Nursing report indicates some episodes of confusion overnight. No overt signs of alcohol withdrawal. Objective PUL Vital signs: Last Vital Signs Temp 99.1 F 02/14/17 04:00 Pulse 96 02/14/17 08:00 Resp 24 02/14/17 08:00 BP 118/87 02/14/17 08:00 Pulse Ox 93 02/14/17 08:00 General appearance: no acute distress, asleep Neck: supple Effort: normal Auscultation: bilateral: clear Cardiovascular: other (Tachycardic with regular rhythm) Gastrointestinal: hypoactive bowel sounds, tender Integumentary: normal Extremities: no cyanosis, no edema, no clubbing Musculoskeletal: other (In the seated appearance) non-focal exam depressed Results - Laboratory Findings CBC and BMP: 02/14/17 06:10 02/14/17 06:10 ABG ABG pH 7.44 pH Units (7.32-7.45) 02/12/17 17:40 ABG pCO2 25 mmHg (35-45) L 02/12/17 17:40 ABG pO2 76 mmHg (85-104) L 02/12/17 17:40 ABG O2 Saturation 96 % (95-98) 02/12/17 17:40 PT/INR, D-dimer PT 14.3 Seconds (9.4-12.1) H 02/12/17 18:12 Abnormal lab findings: Abnormal lab results RBC 2.40 M/mcL (3.82-4.97) L 02/14/17 06:10 Hgb 8.3 g/dL (11.5-15.4) L D 02/14/17 06:10 Hct 23.8 % (35.3-44.9) L 02/14/17 06:10 MCH 34.6 pg (28.0-33.3) H 02/14/17 06:10 Plt Count 126 K/mcL (140-400) L 02/14/17 06:10 Lymphocytes # 0.5 K/mcL (0.6-4.6) L 02/13/17 02:02 Nucleated RBCs/100 WBC 0.6 /100 WBC (0) H 02/14/17 06:10 Platelet Estimate Decreased (Normal) L 02/13/17 02:02 Immature Plt Fraction 16.4 % (1.1-6.1) H 02/13/17 02:02 PT 14.3 Seconds (9.4-12.1) H 02/12/17 18:12 ABG pCO2 25 mmHg (35-45) L 02/12/17 17:40 ABG pO2 76 mmHg (85-104) L 02/12/17 17:40 ABG HCO3 17.0 mEQ/L (21-27) L 02/12/17 17:40 ABG Total CO2 17.8 mEq/L (20-26) L 02/12/17 17:40 ABG Base Excess -5.6 mEq/L (-2.0 to 3.0) L 02/12/17 17:40 VBG pH 7.26 pH Units (7.32-7.42) L 02/13/17 05:02 VBG pCO2 19 mmHg (41-51) L 02/13/17 05:02 VBG pO2 161 mmHg (25-40) H 02/13/17 05:02 VBG HCO3 8.5 mEq/L (21-27) L 02/13/17 05:02 Sodium 133 mEq/L (136-145) L 02/14/17 06:10 BUN 4 mg/dL (7-20) L 02/14/17 06:10 Creatinine 0.50 mg/dL (0.57-1.11) L 02/14/17 06:10 Glucose 113 mg/dL (70-99) H 02/14/17 06:10 POC Glucose 93 (58-89) H 02/13/17 23:33 Serum Osmolality 273 mOsm/kg (280-300) L 02/12/17 17:05 Calculated Osmolality 274 (280-300) L 02/14/17 06:10 Calcium 7.9 mg/dL (8.6-10.8) L 02/14/17 06:10 Total Bilirubin 3.8 mg/dL (0.2-1.2) H 02/14/17 06:10 Direct Bilirubin 3.8 mg/dL (0.0-0.5) H 02/12/17 14:04 AST 279 Units/L (5-34) H 02/14/17 06:10 Alkaline Phosphatase 285 Units/L (38-126) H 02/14/17 06:10 Serum Total Protein 4.5 g/dL (6.0-8.3) L 02/14/17 06:10 Albumin 2.1 g/dL (3.5-5.0) L 02/14/17 06:10 Albumin/Globulin Ratio 0.9 (1.1-2.2) L 02/14/17 06:10 Triglycerides 1248 mg/dL (< 150) H 02/12/17 22:38 HDL Cholesterol 5 mg/dL (40-59) L 02/12/17 22:38 Cholesterol/HDL Ratio 36.2 (0-4.9) H 02/12/17 22:38 Lipase 3463 Units/L (8-78) H 02/12/17 14:04 Urine Color [place] (Yellow) A 02/12/17 22:15 Urine Clarity Cloudy (Clear) A 02/12/17 22:15 Ur Specific [place] > 1.030 (1.010-1.025) H 02/12/17 22:15 Urine Protein 100 mg/dL (Neg-Trace) H 02/12/17 22:15 Urine Ketones 40 mg/dL (Negative) H 02/12/17 22:15 Urine Blood Large (Negative) H 02/12/17 22:15 Urine Nitrite Positive (Negative) A 02/12/17 22:15 Urine Bilirubin Large (Negative) H 02/12/17 22:15 Ur Leukocyte Esterase Small (Negative) H 02/12/17 22:15 Urine Microscopic WBC 30-50 per hpf (0-3) H 02/12/17 22:15 Ur Squamous Epith Cells Many per lpf (None-Few) H 02/12/17 22:15 Urine Bacteria Many per hpf (None-Few) H 02/12/17 22:15 Hyaline Casts Moderate per lpf (None-Few) H 02/12/17 22:15 Ur Culture Indicated? YES (NO) A 02/12/17 22:15 Stool Occult Blood Positive (Negative) A 02/12/17 16:00 Salicylates < 5.0 mg/dL (15-30) L 02/12/17 14:04 Acetaminophen < 1.0 mcg/mL (10-30) L 02/12/17 14:04 Ethyl Alcohol 35 mg/dL (0-10) H 02/12/17 14:04 - Microbiology Findings Microbiology Findings: Microbiology, Last 48 Hours 02/12/17 22:15 Urine Culture - Preliminary Urine,Catheterized Gram Negative [place] - Clinical Findings Intake & Output: Intake & Output 02/13/17 02/14/17 02/14/17 23:59 07:59 15:59 Intake Total 1600 / 1600 2111.2 / 2111.2 Output Total 450 / 450 1950 / 1950 Balance 1150 / 1150 161.2 / 161.2 Weight 43.8 kg - VTE Documentation of Mechanical Device: Intermittent pneumatic compression device Consult Discharge Plan - Plan Referrals: Dejan Ratliff MD [Primary Care Provider] -
[2017-02-14] MEDS ORDERED: Naloxone 0.4 MG/ML INJ IVP PRN (11:39)
[2017-02-14 12:56] LABS: Lymphocytes # 0.8 K/mcL (0.6-4.6); Monocytes # 0.4 K/mcL (0.0-1.3); Neutrophils # 8.5 K/mcL (1.6-8.9); Platelet Estimate Normal (Normal)
[2017-02-14 12:57] LABS: Anisocytosis 1+ (Not Present); Macrocytosis Present (Not Present)
[2017-02-14] MEDS: Ondansetron 4 MG/2 ML VIAL IVP PRN ×2 (13:54→20:42)
[2017-02-14] MEDS: *HR* LORazepam 2 MG/ML VIAL IVP PRN ×3 (15:12→23:21)
[2017-02-14] MEDS: Thiamine (B-1) 100 MG, Folic Acid 1 MG, MVI, adult with vitamin K 10 ML in 0.9 % Sodi... IVPB SCH (18:40)
[2017-02-15] MEDS: Insulin LISPRO 300 UNITS/3 ML VIAL SQ SCH ×3 (00:15→13:12)
[2017-02-15] MEDS: *HR* LORazepam 2 MG/ML VIAL IVP PRN ×4 (00:51→06:17)
[2017-02-15] MEDS: Pantoprazole 40 MG in 0.9 % Sodium Chloride Mini Bag 100 ML IVC SCH (04:22)
[2017-02-15 05:06] LABS: Hematocrit 23.7 % (35.3-44.9); Mean Corpuscular HGB Conc 33.8 g/dL (31.6-35.5); Mean Corpuscular Hemoglobin 34.5 pg (28.0-33.3); Mean Corpuscular Volume 102.2 fL (83.0-100.0); Mean Platelet Volume 11.1 fL (9.4-12.4); Monocytes # 1.1 K/mcL (0.0-1.3); Nucleated Red Blood Cells 0.4 /100 WBC (0); Platelet Count 160 K/mcL (140-400); Red Blood Count 2.32 M/mcL (3.82-4.97); Red Cell Distribution Width 13.7 % (11.5-14.5)
[2017-02-15 05:24] LABS: Alanine Aminotransferase 59 Units/L (0-55); Albumin 2.3 g/dL (3.5-5.0); Albumin/Globulin Ratio 0.9 (1.1-2.2); Alkaline Phosphatase 322 Units/L (38-126); Aspartate Amino Transferase 280 Units/L (5-34); BUN/Creatinine Ratio 7 (6-26); Bilirubin,Total 3.9 mg/dL (0.2-1.2); Calcium 8.6 mg/dL (8.6-10.8); Carbon Dioxide 29 mEq/L (19-29); Chloride 99 mEq/L (98-109); Globulin 2.6 g/dL (2.4-3.5); Glucose 86 mg/dL (70-99); Osmolality,Calculated 280 (280-300); Sodium 137 mEq/L (136-145); Total Protein 4.9 g/dL (6.0-8.3); eGFR For African Americans > 60 (> 60); eGFR For Non-African Americans > 60 (> 60)
[2017-02-15 05:30] LABS: Blood Urea Nitrogen 3 mg/dL (7-20); Potassium 3.2 mEq/L (3.5-4.5)
[2017-02-15 05:33] LABS: Phosphorous < 0.7 mg/dL (2.3-4.7)
[2017-02-15 06:42] LABS: Eosinophils # 0.2 K/mcL (0.0-0.6); Lymphocytes # 1.1 K/mcL (0.6-4.6); Neutrophils # 8.4 K/mcL (1.6-8.9); Platelet Estimate Normal (Normal)
[2017-02-15 06:43] LABS: Stomatocytes 2+ (Not Present)
[2017-02-15 06:44] LABS: Target Cells 1+ (Not Present)
[2017-02-15 06:45] LABS: Microcytosis Present (Not Present)
[2017-02-15] MEDS ORDERED: Potassium Phosphate 44 MEQ in 0.9 % Sodium Chloride 250 ML IVPB ONE (07:35)
[2017-02-15] MEDS: Ondansetron 4 MG/2 ML VIAL IVP PRN (09:06)
[2017-02-15 12:49] LABS: Phosphorous 1.3 mg/dL (2.3-4.7); Potassium 4.3 mEq/L (3.5-4.5)
--- NOTE | 2017-02-15 13:42 | Pulmonology Progress Note ---
Date of Encounter: 02/15/17 Time of Encounter: 08:15 Assessment and Plan (1) Acute pancreatitis Current Visit: Yes Status: Acute Neuro: Beginning to show signs of alcohol withdrawal. Continue serial protocol. Cardiovascular: Sepsis of hypertension was likely related to alcohol withdrawal. Avoid antihypertensives in favor of benzodiazepines for withdrawal symptoms. Pulmonary: No acute issues Nephro: Hypophosphatemia and this morning most likely related to refeeding syndrome. Electrolytes were replaced insufficient quantity for transfer out of ICU. Otherwise no acute issues. Elevated serum lactate and ketosis are resolved. JULY noted admission is resolved GI: Pancreatitis improving with IV fluids. Discontinue fluids today. Tolerating liquid diet. Advance diet today. Hematemesis has not recurred. Patient evaluated by GI and no indication for endoscopy. Liver associated enzymes are stable with slight elevation of bilirubin and AST. This is probably reflective of underlying undiagnosed liver disease related to chronic alcohol abuse. No evidence of cirrhosis. ID: Bacteriuria treated with Rocephin. Has completed 72 hour course. Discontinue Rocephin. HO: Anemia after volume resuscitation most likely reflective of some degree of hemoconcentration initial presentation. No indication for transfusion. No evidence of active bleeding. Endocrine: Transient hyperglycemia most likely due to infusions of dextrose for management of ketosis. Hyperglycemia is not persisted discontinue sliding scale insulin. MSK: Low body mass/BMI. Likely due to chronic insufficient caloric intake. Disposition: Appropriate for transfer to internal medicine. Chronic care time 40 minutes Qualifiers: Pancreatitis type: alcohol induced Acute pancreatitis complication: uninfected necrosis Qualified Code(s): K85.21 - Alcohol induced acute pancreatitis with uninfected necrosis (2) Metabolic acidosis with increased anion gap and accumulation of organic acids Current Visit: Yes Status: Resolved (3) Acute renal failure Current Visit: Yes Status: Resolved Qualifiers: Acute renal failure type: unspecified Qualified Code(s): N17.9 - Acute kidney failure, unspecified (4) Hematemesis with nausea Current Visit: Yes Status: Resolved (5) Alcohol abuse Current Visit: Yes Status: Chronic (6) Lactic acidosis Current Visit: Yes Status: Resolved (7) Alcohol intoxication Current Visit: Yes Status: Resolved Qualifiers: Complication of substance-induced condition: with unspecified complication Qualified Code(s): F10.129 - Alcohol abuse with intoxication, unspecified Subjective Principal diagnosis: Acute Pancreatitis Interval history: 36-year-old female admitted on February 12 for acute pancreatitis and hematemesis. Hematemesis resolved shortly after admission. Pancreatic tenderness is resolved with IV fluid and bowel rest. Patient does see her protocol is beginning to show some indicators of alcohol withdrawal. Has required several doses of Ativan. Otherwise patient is doing well. No new complaints today. Objective PUL Vital signs: Last Vital Signs Temp 99.0 F 02/15/17 11:43 Pulse 96 02/15/17 13:00 Resp 16 02/15/17 13:00 BP 117/94 02/15/17 13:00 Pulse Ox 99 02/15/17 13:00 General appearance: no acute distress, asleep Eyes: nonicteric Effort: normal Auscultation: bilateral: clear Cardiovascular: regular rate and rhythm Gastrointestinal: soft, non-tender Integumentary: normal Extremities: no cyanosis, no edema, no clubbing Musculoskeletal: no deformities, other (Low body mass) depressed Results - Laboratory Findings CBC and BMP: 02/15/17 04:55 02/15/17 11:58 ABG ABG pH 7.44 pH Units (7.32-7.45) 02/12/17 17:40 ABG pCO2 25 mmHg (35-45) L 02/12/17 17:40 ABG pO2 76 mmHg (85-104) L 02/12/17 17:40 ABG O2 Saturation 96 % (95-98) 02/12/17 17:40 PT/INR, D-dimer PT 14.3 Seconds (9.4-12.1) H 02/12/17 18:12 Abnormal lab findings: Abnormal lab results RBC 2.32 M/mcL (3.82-4.97) L 02/15/17 04:55 Hgb 8.0 g/dL (11.5-15.4) L 02/15/17 04:55 Hct 23.7 % (35.3-44.9) L 02/15/17 04:55 MCV 102.2 fL (83.0-100.0) H 02/15/17 04:55 MCH 34.5 pg (28.0-33.3) H 02/15/17 04:55 Band Neutrophils % 10.0 % (0-4) H 02/15/17 04:55 Nucleated RBCs/100 WBC 0.4 /100 WBC (0) H 02/15/17 04:55 Immature Plt Fraction 16.4 % (1.1-6.1) H 02/13/17 02:02 Anisocytosis 1+ (Not Present) A 02/14/17 06:10 Microcytosis Present (Not Present) A 02/15/17 04:55 Macrocytosis Present (Not Present) A 02/14/17 06:10 Target Cells 1+ (Not Present) A 02/15/17 04:55 Stomatocytes 2+ (Not Present) A 02/15/17 04:55 PT 14.3 Seconds (9.4-12.1) H 02/12/17 18:12 ABG pCO2 25 mmHg (35-45) L 02/12/17 17:40 ABG pO2 76 mmHg (85-104) L 02/12/17 17:40 ABG HCO3 17.0 mEQ/L (21-27) L 02/12/17 17:40 ABG Total CO2 17.8 mEq/L (20-26) L 02/12/17 17:40 ABG Base Excess -5.6 mEq/L (-2.0 to 3.0) L 02/12/17 17:40 VBG pH 7.26 pH Units (7.32-7.42) L 02/13/17 05:02 VBG pCO2 19 mmHg (41-51) L 02/13/17 05:02 VBG pO2 161 mmHg (25-40) H 02/13/17 05:02 VBG HCO3 8.5 mEq/L (21-27) L 02/13/17 05:02 BUN 3 mg/dL (7-20) L 02/15/17 04:55 Creatinine 0.45 mg/dL (0.57-1.11) L 02/15/17 04:55 POC Glucose 94 (58-89) H 02/15/17 11:18 Serum Osmolality 273 mOsm/kg (280-300) L 02/12/17 17:05 Phosphorus 1.3 mg/dL (2.3-4.7) L D 02/15/17 11:58 Total Bilirubin 3.9 mg/dL (0.2-1.2) H 02/15/17 04:55 Direct Bilirubin 3.8 mg/dL (0.0-0.5) H 02/12/17 14:04 AST 280 Units/L (5-34) H 02/15/17 04:55 ALT 59 Units/L (0-55) H 02/15/17 04:55 Alkaline Phosphatase 322 Units/L (38-126) H 02/15/17 04:55 Serum Total Protein 4.9 g/dL (6.0-8.3) L 02/15/17 04:55 Albumin 2.3 g/dL (3.5-5.0) L 02/15/17 04:55 Albumin/Globulin Ratio 0.9 (1.1-2.2) L 02/15/17 04:55 Triglycerides 1248 mg/dL (< 150) H 02/12/17 22:38 HDL Cholesterol 5 mg/dL (40-59) L 02/12/17 22:38 Cholesterol/HDL Ratio 36.2 (0-4.9) H 02/12/17 22:38 Lipase 3463 Units/L (8-78) H 02/12/17 14:04 Urine Color [place] (Yellow) A 02/12/17 22:15 Urine Clarity Cloudy (Clear) A 02/12/17 22:15 Ur Specific [place] > 1.030 (1.010-1.025) H 02/12/17 22:15 Urine Protein 100 mg/dL (Neg-Trace) H 02/12/17 22:15 Urine Ketones 40 mg/dL (Negative) H 02/12/17 22:15 Urine Blood Large (Negative) H 02/12/17 22:15 Urine Nitrite Positive (Negative) A 02/12/17 22:15 Urine Bilirubin Large (Negative) H 02/12/17 22:15 Ur Leukocyte Esterase Small (Negative) H 02/12/17 22:15 Urine Microscopic WBC 30-50 per hpf (0-3) H 02/12/17 22:15 Ur Squamous Epith Cells Many per lpf (None-Few) H 02/12/17 22:15 Urine Bacteria Many per hpf (None-Few) H 02/12/17 22:15 Hyaline Casts Moderate per lpf (None-Few) H 02/12/17 22:15 Ur Culture Indicated? YES (NO) A 02/12/17 22:15 Stool Occult Blood Positive (Negative) A 02/12/17 16:00 Salicylates < 5.0 mg/dL (15-30) L 02/12/17 14:04 Acetaminophen < 1.0 mcg/mL (10-30) L 02/12/17 14:04 Ethyl Alcohol 35 mg/dL (0-10) H 02/12/17 14:04 - Microbiology Findings Microbiology Findings: Microbiology, Last 48 Hours 02/12/17 22:15 Urine Culture - Final Urine,Catheterized Escherichia coli - Clinical Findings Intake & Output: Intake & Output 02/14/17 02/15/17 02/15/17 23:59 07:59 15:59 Intake Total 1200 / 1200 200 / 200 80 / 80 Output Total 600 / 600 1700 / 1700 700 / 700 Balance 600 / 600 -1500 / -1500 -620 / -620 - VTE Documentation of Mechanical Device: Intermittent pneumatic compression device Consult Discharge Plan - Plan Referrals: Dejan Ratliff MD [Primary Care Provider] -
[2017-02-15] MEDS ORDERED: Ringers Solution, Lactated 1,000 ML IVC SCH (14:33)
[2017-02-15] MEDS ORDERED: *HR* LORazepam 2 MG/ML VIAL IVP PRN ×2 (14:33)
[2017-02-15] MEDS ORDERED: Acetaminophen 650 MG RECTAL SUPP RC PRN (14:33)
[2017-02-16 10:13] LABS: Hematocrit 27.5 % (35.3-44.9); Hemoglobin 9.4 g/dL (11.5-15.4); Mean Corpuscular HGB Conc 34.2 g/dL (31.6-35.5); Mean Corpuscular Hemoglobin 34.8 pg (28.0-33.3); Mean Corpuscular Volume 101.9 fL (83.0-100.0); Mean Platelet Volume 11.1 fL (9.4-12.4); Nucleated Red Blood Cells 1.2 /100 WBC (0); Platelet Count 176 K/mcL (140-400); Red Cell Distribution Width 14.1 % (11.5-14.5)
[2017-02-16 10:19] LABS: Alanine Aminotransferase 65 Units/L (0-55); Albumin 2.5 g/dL (3.5-5.0); Albumin/Globulin Ratio 0.8 (1.1-2.2); Alkaline Phosphatase 477 Units/L (38-126); Aspartate Amino Transferase 223 Units/L (5-34); BUN/Creatinine Ratio 5 (6-26); Bilirubin,Total 4.4 mg/dL (0.2-1.2); Calcium 8.9 mg/dL (8.6-10.8); Carbon Dioxide 25 mEq/L (19-29); Chloride 96 mEq/L (98-109); Globulin 3.2 g/dL (2.4-3.5); Glucose 151 mg/dL (70-99); Magnesium 1.3 mg/dL (1.6-2.6); Osmolality,Calculated 267 (280-300); Potassium 3.6 mEq/L (3.5-4.5); Total Protein 5.7 g/dL (6.0-8.3); eGFR For African Americans > 60 (> 60); eGFR For Non-African Americans > 60 (> 60)
[2017-02-16 10:20] LABS: Blood Urea Nitrogen 2 mg/dL (7-20); Sodium 129 mEq/L (136-145)
[2017-02-16 10:21] LABS: Phosphorous 2.1 mg/dL (2.3-4.7)
[2017-02-16 10:42] LABS: Eosinophils # 0.2 K/mcL (0.0-0.6); Lymphocytes # 2.3 K/mcL (0.6-4.6); Monocytes # 1.2 K/mcL (0.0-1.3); Neutrophils # 5.1 K/mcL (1.6-8.9); Platelet Estimate Normal (Normal)
--- NOTE | 2017-02-16 14:49 | Internal Med Progress Note ---
Date of Encounter: 02/16/17 Time of Encounter: 14:44 - Subjective Interval history: Patient is a 36/o female admitted for acute pancreatitis secondary to alcohol abuse and UTI. She was initially admitted to the ICU and was transferred to [facility] on 02/15/17. Patient seen and examined at bedside. Resting in bed. Remains somnolent but easily arousable and participates in conversation. Reports of feeling hungry but too drowsy to fully remain awake throughout my evaluation. States she wasn' t drinking more than her usual prior to her hospitalization. Despite her somnolent status, she is oriented to self, place, and time. 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 eval once mentally more awake in regards to discharge planning Qualifiers: Pancreatitis type: alcohol induced Acute pancreatitis complication: uninfected necrosis Qualified Code(s): K85.21 - Alcohol induced acute pancreatitis with uninfected necrosis (2) Metabolic acidosis with increased anion gap and accumulation of organic acids Current Visit: Yes Status: Resolved (3) Acute renal failure Current Visit: Yes Status: Resolved Qualifiers: Acute renal failure type: unspecified Qualified Code(s): N17.9 - Acute kidney failure, unspecified (4) Hematemesis with nausea Current Visit: Yes Status: Resolved (5) Alcohol abuse Current Visit: Yes Status: Chronic Closely monitor for signs of Withdrawal continue CIWA monitoring ativan as needed (6) UTI Current Visit: Yes Status: Acute continue IV abx (Day 4/5) Urine culture: E.coli (7) Alcohol intoxication Current Visit: Yes Status: Resolved Qualifiers: Complication of substance-induced condition: with unspecified complication Qualified Code(s): F10.129 - Alcohol abuse with intoxication, unspecified - Constitutional Vitals: Temp Pulse Resp BP Pulse Ox 98.5 F 84 16 98/67 98 02/16/17 11:35 02/16/17 11:35 02/16/17 11:35 02/16/17 11:35 02/16/17 11:35 General appearance: Present: A&O X 3, no acute distress, underweight - Head Head exam: Present: atraumatic, normocephalic - Eye Eye exam: Present: normal appearance, conjuntiva pink, sclera anicteric - Respiratory Respiratory exam: Present: CTAB. Absent: accessory muscle use, rales, rhonchi, wheezes - Cardiovascular Cardiovascular exam: Present: RRR, +S1, +S2. Absent: diastolic murmur, gallop, rubs, systolic murmur - GI/Abdominal GI/Abdominal exam: Present: normal bowel sounds, soft, no peritoneal signs. Absent: distended, tenderness - Extremities Exam Extremities exam: Present: warm, radial pulses palpable and symetrical. Absent : calf tenderness, cyanotic, pedal edema - Neurological Exam Neurological exam: Present: alert, oriented X3 (somnolent mental status) - Psychiatric Psychiatric exam: Present: normal affect, normal mood Internal Medicine: Result - Labs CBC & Chem 7: 02/16/17 09:45 02/16/17 09:45 Labs: Short CBC 02/16/17 Range/Units 09:45 WBC 8.7 (4.3-11.1) K/mcL Hgb 9.4 L (11.5-15.4) g/dL Hct 27.5 L (35.3-44.9) % Plt Count 176 (140-400) K/mcL Neutrophils # 5.1 (1.6-8.9) K/mcL BMP 02/16/17 09:45 Sodium 129 L D Potassium 3.6 Chloride 96 L Carbon Dioxide 25 BUN 2 L Creatinine 0.44 L Glucose 151 H Calcium 8.9 Liver Function 02/16/17 Range/Units 09:45 Total Bilirubin 4.4 H (0.2-1.2) mg/dL AST 223 H (5-34) Units/L ALT 65 H (0-55) Units/L Alkaline Phosphatase 477 H (38-126) Units/L Albumin 2.5 L (3.5-5.0) g/dL - ABG Interpretation ABG results: ABG ABG pH 7.44 pH Units (7.32-7.45) 02/12/17 17:40 ABG pCO2 25 mmHg (35-45) L 02/12/17 17:40 ABG pO2 76 mmHg (85-104) L 02/12/17 17:40 ABG O2 Saturation 96 % (95-98) 02/12/17 17:40 PT/INR, D-dimer PT 14.3 Seconds (9.4-12.1) H 02/12/17 18:12 - VTE Documentation of Mechanical Device: Intermittent pneumatic compression device Consult Discharge Plan - Plan Referrals: Dejan Ratliff MD [Primary Care Provider] -
[2017-02-16] MEDS: 0.9 % Sodium Chloride 1,000 ML IVC SCH (15:56)
[2017-02-16] MEDS: *HR* Heparin 5,000 UNIT/ML VIAL SQ SCH (17:59)
[2017-02-17] MEDS: Ondansetron 4 MG/2 ML VIAL IVP PRN ×3 (00:57→17:13)
[2017-02-17 01:26] LABS: Alanine Aminotransferase 63 Units/L (0-55); Albumin 2.4 g/dL (3.5-5.0); Albumin/Globulin Ratio 0.8 (1.1-2.2); Alkaline Phosphatase 465 Units/L (38-126); Aspartate Amino Transferase 186 Units/L (5-34); BUN/Creatinine Ratio 5 (6-26); Bilirubin,Total 4.4 mg/dL (0.2-1.2); Carbon Dioxide 26 mEq/L (19-29); Chloride 101 mEq/L (98-109); Glucose 122 mg/dL (70-99); Magnesium 1.4 mg/dL (1.6-2.6); Osmolality,Calculated 277 (280-300); Phosphorous 2.7 mg/dL (2.3-4.7); Potassium 3.6 mEq/L (3.5-4.5); Sodium 135 mEq/L (136-145); Total Protein 5.4 g/dL (6.0-8.3); eGFR For African Americans > 60 (> 60); eGFR For Non-African Americans > 60 (> 60)
[2017-02-17 01:28] LABS: Blood Urea Nitrogen 2 mg/dL (7-20)
[2017-02-17 01:34] LABS: Hematocrit 26.7 % (35.3-44.9); Hemoglobin 8.9 g/dL (11.5-15.4); Mean Corpuscular HGB Conc 33.3 g/dL (31.6-35.5); Mean Corpuscular Hemoglobin 34.6 pg (28.0-33.3); Mean Corpuscular Volume 103.9 fL (83.0-100.0); Mean Platelet Volume 10.7 fL (9.4-12.4); Nucleated Red Blood Cells 0.9 /100 WBC (0); Platelet Count 214 K/mcL (140-400); Red Blood Count 2.57 M/mcL (3.82-4.97); Red Cell Distribution Width 14.1 % (11.5-14.5)
[2017-02-17 01:58] LABS: Eosinophils # 0.3 K/mcL (0.0-0.6); Lymphocytes # 1.5 K/mcL (0.6-4.6); Monocytes # 2.9 K/mcL (0.0-1.3); Neutrophils # 2.9 K/mcL (1.6-8.9)
[2017-02-17 01:59] LABS: Platelet Estimate Normal (Normal); Polychromasia 1+ (Not Present)
[2017-02-17] MEDS ORDERED: Acetaminophen 325 MG TABLET PO ONE (02:58)
[2017-02-17] MEDS: 0.9 % Sodium Chloride 1,000 ML IVC SCH ×2 (04:08→18:54)
[2017-02-17] MEDS: *HR* Heparin 5,000 UNIT/ML VIAL SQ SCH ×2 (05:56→17:33)
[2017-02-17] MEDS: *HR* LORazepam 2 MG/ML VIAL IVP PRN ×2 (06:07→12:21)
[2017-02-17] MEDS ORDERED: Magnesium Sulfate 2 GM in D5% in Water 100 ML IVPB ONE (09:30)
[2017-02-17] MEDS: *HR* OxyCODONE/APAP 5/325 TABLET PO PRN ×2 (12:21→18:53)
--- NOTE | 2017-02-17 15:42 | Internal Med Progress Note ---
Date of Encounter: 02/17/17 Time of Encounter: 12:45 - Assessment and plan (1) Alcohol withdrawal Current Visit: Yes Status: Acute Assessment and plan: Currently stable, at baseline mental status. No restlessness or agitation. 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 Physical and occupational therapy evaluation. Nutrition consult. Diet as tolerated. Qualifiers: Complication of substance-induced condition: with delirium Qualified Code(s ): F10.231 - Alcohol dependence with withdrawal delirium (2) UTI (urinary tract infection) Current Visit: Yes Status: Acute Assessment and plan: Urine culture grows Escherichia coli. Patient has been on IV Rocephin-day 5 today. Qualifiers: Urinary tract infection type: site unspecified Hematuria presence: without hematuria Qualified Code(s): N39.0 - Urinary tract infection, site not specified (3) Hypomagnesemia Current Visit: Yes Status: Acute Assessment and plan: Related to alcohol use. Supplement with IV magnesium sulfate. (4) Acute pancreatitis Current Visit: Yes Status: Resolved Assessment and plan: Alcoholic pancreatitis. Currently improved. Full liquid diet, advance as tolerated. Qualifiers: Pancreatitis type: alcohol induced Acute pancreatitis complication: no infection or necrosis Qualified Code(s): K85.20 - Alcohol induced acute pancreatitis without necrosis or infection (5) Acute renal failure Current Visit: Yes Status: Resolved Qualifiers: Acute renal failure type: unspecified Qualified Code(s): N17.9 - Acute kidney failure, unspecified (6) Hyponatremia Current Visit: Yes Status: Resolved (7) Metabolic acidosis with increased anion gap and accumulation of organic acids Current Visit: Yes Status: Resolved (8) Alcohol abuse Current Visit: Yes Status: Chronic Assessment and plan: client services specialist on board. Patient will likely be discharged home with her uncle , with whom she currently resides. She is also noted to have a PCP at this time and she will follow-up as outpatient. (9) Lactic acidosis Current Visit: Yes Status: Resolved - Subjective Interval history: Reports not doing well due to anorexia, generalized weakness but is unable to elaborate further. Reports that she presented to the hospital due to severe ear infection but does not recall further course of hospitalization. - Constitutional Vitals: Temp Pulse Resp BP Pulse Ox 98.4 F 87 16 101/66 98 02/17/17 12:02 02/17/17 12:02 02/17/17 12:02 02/17/17 12:02 02/17/17 12:02 General appearance: Present: A&O X 3 (Oriented in general but lacks insight into current medical condition and future), underweight - Respiratory Respiratory exam: Present: CTAB. Absent: accessory muscle use, rales, rhonchi, wheezes - Cardiovascular Cardiovascular exam: Present: RRR, +S1, +S2. Absent: diastolic murmur, gallop, rubs, systolic murmur - GI/Abdominal GI/Abdominal exam: Present: normal bowel sounds, soft, no peritoneal signs. Absent: distended, tenderness - Psychiatric Psychiatric exam: Present: depressed, flat affect Internal Medicine: Result - Labs CBC & Chem 7: 02/17/17 01:01 02/17/17 01:01 Labs: Short CBC 02/17/17 Range/Units 01:01 WBC 7.6 (4.3-11.1) K/mcL Hgb 8.9 L (11.5-15.4) g/dL Hct 26.7 L (35.3-44.9) % Plt Count 214 (140-400) K/mcL Neutrophils # 2.9 (1.6-8.9) K/mcL BMP 02/17/17 01:01 Sodium 135 L Potassium 3.6 Chloride 101 Carbon Dioxide 26 BUN 2 L Creatinine 0.44 L Glucose 122 H Calcium 9.0 Cardiac Enzymes 02/16/17 02/17/17 02/17/17 Range/Units 19:16 01:01 06:49 Troponin I 0.02 0.02 0.01 (0-0.03) ng/mL Liver Function 02/17/17 Range/Units 01:01 Total Bilirubin 4.4 H (0.2-1.2) mg/dL AST 186 H (5-34) Units/L ALT 63 H (0-55) Units/L Alkaline Phosphatase 465 H (38-126) Units/L Albumin 2.4 L (3.5-5.0) g/dL - ABG Interpretation ABG results: ABG ABG pH 7.44 pH Units (7.32-7.45) 02/12/17 17:40 ABG pCO2 25 mmHg (35-45) L 02/12/17 17:40 ABG pO2 76 mmHg (85-104) L 02/12/17 17:40 ABG O2 Saturation 96 % (95-98) 02/12/17 17:40 PT/INR, D-dimer PT 14.3 Seconds (9.4-12.1) H 02/12/17 18:12 - VTE Documentation of Mechanical Device: Intermittent pneumatic compression device Consult Discharge Plan - Plan Referrals: Dejan Ratliff MD [Primary Care Provider] -
[2017-02-18] MEDS: *HR* OxyCODONE/APAP 5/325 TABLET PO PRN ×3 (04:06→22:34)
[2017-02-18] MEDS: Ondansetron 4 MG/2 ML VIAL IVP PRN ×2 (04:09→09:23)
[2017-02-18] MEDS: *HR* Heparin 5,000 UNIT/ML VIAL SQ SCH ×2 (06:04→17:08)
--- NOTE | 2017-02-18 08:29 | Electrocardiograph Report ---
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
--- NOTE | 2017-02-18 08:30 | Electrocardiograph Report ---
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
[2017-02-18] MEDS: 0.9 % Sodium Chloride 1,000 ML IVC SCH (09:23)
--- NOTE | 2017-02-18 14:16 | Internal Med Progress Note ---
Date of Encounter: 02/18/17 Time of Encounter: 09:45 - Assessment and plan (1) Alcohol withdrawal Current Visit: Yes Status: Acute Assessment and plan: Currently stable, at baseline mental status. Continues to deny any alcohol related problem. Refuses telemetry and IV access. Does have chronic alcohol- related malnutrition, cachexia and generalized weakness. Physical and occupational therapy evaluation. Nutrition consult. Diet as tolerated. Qualifiers: Complication of substance-induced condition: with delirium Qualified Code(s ): F10.231 - Alcohol dependence with withdrawal delirium (2) UTI (urinary tract infection) Current Visit: Yes Status: Acute Assessment and plan: Urine culture grows Escherichia coli. Patient has been on IV Rocephin-day 6 today. Qualifiers: Urinary tract infection type: site unspecified Hematuria presence: without hematuria Qualified Code(s): N39.0 - Urinary tract infection, site not specified (3) Hypomagnesemia Current Visit: Yes Status: Acute Assessment and plan: Supplemented with IV magnesium sulfate. Follow-up magnesium. (4) Acute pancreatitis Current Visit: Yes Status: Resolved Qualifiers: Pancreatitis type: alcohol induced Acute pancreatitis complication: no infection or necrosis Qualified Code(s): K85.20 - Alcohol induced acute pancreatitis without necrosis or infection (5) Acute renal failure Current Visit: Yes Status: Resolved Qualifiers: Acute renal failure type: unspecified Qualified Code(s): N17.9 - Acute kidney failure, unspecified (6) Hyponatremia Current Visit: Yes Status: Resolved (7) Metabolic acidosis with increased anion gap and accumulation of organic acids Current Visit: Yes Status: Resolved (8) Alcohol abuse Current Visit: Yes Status: Chronic Assessment and plan: support services specialist on board. Patient will likely be discharged home with her uncle , with whom she currently resides. She is also noted to have a PCP at this time and she will follow-up as outpatient. (9) Lactic acidosis Current Visit: Yes Status: Resolved - Subjective Interval history: Patient noted to be extremely rude and irritable today. Insists on being seen by ENT as an inpatient due to her inner ear problem, which is causing imbalance and difficulty walking. She further states that this is the main reason she has come to the hospital, intermittently stating that she had and had not followed up with ENT with this complaint and was diagnosed with inner ear problem. Does not seem to understand the reason for her admission, ICU course and current clinical condition. - Constitutional Vitals: Temp Pulse Resp BP Pulse Ox 98.5 F 82 16 120/83 98 02/18/17 11:36 02/18/17 11:36 02/18/17 11:36 02/18/17 11:36 02/18/17 11:36 General appearance: Present: cachectic, mild distress, A&O X 3, underweight, answers questions appropriately - Respiratory Respiratory exam: Present: CTAB. Absent: accessory muscle use, rales, rhonchi, wheezes - Cardiovascular Cardiovascular exam: Present: RRR, +S1, +S2. Absent: diastolic murmur, gallop, rubs, systolic murmur - GI/Abdominal GI/Abdominal exam: Present: normal bowel sounds, soft, no peritoneal signs. Absent: distended, tenderness - Psychiatric Psychiatric exam: Present: anxious (Irritable, obsessed with ear infection. Lacks insight.) Internal Medicine: Result - Labs CBC & Chem 7: 02/17/17 01:01 02/17/17 01:01 - ABG Interpretation ABG results: ABG ABG pH 7.44 pH Units (7.32-7.45) 02/12/17 17:40 ABG pCO2 25 mmHg (35-45) L 02/12/17 17:40 ABG pO2 76 mmHg (85-104) L 02/12/17 17:40 ABG O2 Saturation 96 % (95-98) 02/12/17 17:40 PT/INR, D-dimer PT 14.3 Seconds (9.4-12.1) H 02/12/17 18:12 - VTE Documentation of Mechanical Device: Intermittent pneumatic compression device Consult Discharge Plan - Plan Referrals: Dejan Ratliff MD [Primary Care Provider] -
[2017-02-18] MEDS: Ondansetron ODT 4 MG TAB.RAPDIS SL PRN (17:29)
[2017-02-19] MEDS: 0.9 % Sodium Chloride 1,000 ML IVC SCH (00:24)
[2017-02-19] MEDS ORDERED: *HR* LORazepam 1 MG TABLET PO PRN ×3 (01:26)
[2017-02-19] MEDS: *HR* OxyCODONE/APAP 5/325 TABLET PO PRN ×2 (05:32→12:07)
[2017-02-19] MEDS: *HR* Heparin 5,000 UNIT/ML VIAL SQ SCH (05:32)
[2017-02-19] MEDS: Ondansetron ODT 4 MG TAB.RAPDIS SL PRN (10:29)
[2017-02-19 14:52] VITALS: BP 104/67
--- NOTE | 2017-02-19 15:19 | Discharge Summary ---
Date of Encounter: 02/19/17 Time of Encounter: 12:30 - Discharge Diagnosis (1) Alcohol withdrawal Priority: Primary Status: Acute Qualifiers: Complication of substance-induced condition: with delirium Qualified Code(s ): F10.231 - Alcohol dependence with withdrawal delirium (2) UTI (urinary tract infection) Priority: Primary Status: Acute Qualifiers: Urinary tract infection type: site unspecified Hematuria presence: without hematuria Qualified Code(s): N39.0 - Urinary tract infection, site not specified (3) Hypomagnesemia Priority: Primary Status: Acute (4) Acute pancreatitis Priority: Primary Status: Resolved Qualifiers: Pancreatitis type: alcohol induced Acute pancreatitis complication: no infection or necrosis Qualified Code(s): K85.20 - Alcohol induced acute pancreatitis without necrosis or infection (5) Acute renal failure Priority: Primary Status: Resolved Qualifiers: Acute renal failure type: unspecified Qualified Code(s): N17.9 - Acute kidney failure, unspecified (6) Hyponatremia Priority: Primary Status: Resolved (7) Metabolic acidosis with increased anion gap and accumulation of organic acids Priority: Primary Status: Resolved (8) Alcohol abuse Priority: Secondary Status: Chronic (9) Lactic acidosis Priority: Primary Status: Resolved - Discharge Medications Prescriptions: Ondansetron ODT [Zofran ODT] 4 mg SL Q6HR PRN #20 tab.rapdis PRN Reason: Nausea And Vomiting ALPRAZolam [Xanax 0.25 MG Tablet] 0.25 mg PO BID PRN #20 tablet PRN Reason: Anxiety Lactose-Reduced Food [Ensure High Protein] 1 bottle PO TID #90 can Omeprazole [PriLOSEC] 40 mg PO DAILY@0630 #30 capsule. Home Medications: Ibuprofen [Motrin] 400 mg PO Q6-8H PRN 02/12/17 [History] ALPRAZolam [Xanax 0.25 MG Tablet] 0.25 mg PO BID PRN #20 tablet 02/19/17 [Rx] Lactose-Reduced Food [Ensure High Protein] 1 bottle PO TID #90 can 02/19/17 [Rx] Omeprazole [PriLOSEC] 40 mg PO DAILY@0630 #30 capsule. 02/19/17 [Rx] Ondansetron ODT [Zofran ODT] 4 mg SL Q6HR PRN #20 tab.rapdis 02/19/17 [Rx] Oxycodone HCl/Acetaminophen [Percocet 5-325 mg Tablet] 1 each PO Q6HR #15 tablet 02/20/17 [Rx] Allergies/Adverse Reactions: Allergies diphenhydramine [From Benadryl] Allergy (Verified 01/24/17 08:16) Rash Penicillins [PCN] Allergy (Verified 01/24/17 08:16) Rash Procedures/tests Complete & Pending: Procedures Performed prior 72 hours Category Date Time Status ECG 12 lead ECG [ECG] Routine Y 02/16/17 18:40 Completed EKG [ECG 12 lead ECG] [ECG] Routine Y 02/16/17 18:35 Completed Date of admission: 02/12/17 16:18 Primary care physician: Dejan Ratliff MD Consults: 02/12/17 17:32 Consult to Airport Electrician [CONS] Routine Reason for SW Consult: discharge planning, alcoholism 02/12/17 18:09 Consult to Airport Electrician [CONS] Routine Reason for SW Consult: POSSABLE ABUSE 02/17/17 15:35 Consult to Occupational Therapy [CONS] Routine Comment: Evaluate, develop and implement POC Reason for Consult: Chronic alcoholism, generalized weakness, malnutrition Consult to Physical Therapy [CONS] Routine Comment: Evaluate, develop and implement POC Reason for Consult: Chronic alcoholism, generalized weakness, malnutrition 02/18/17 14:12 consult to applied mathematician [Consult to Nutrition] [CONS] Routine Comment: Consulting Provider: NUTRITION Reason for Dietary Consult: PO Supplementation Discharging clinician: Yenni Bond Anticipated date of discharge: 02/19/17 - Patient Status Disposition: Home, Self-Care Condition: Good Functional capacity at discharge: independent ambulation Overall status at discharge: patient is progressing back to baseline - Discharge Instructions Follow Up With: Dejan Ratliff MD [Primary Care Provider] - 02/26/17 1:15 pm - Diet and Activity Activity: resume usual activities as tolerated Diet: advance to your usual diet (regular, high protein diet; alcohol abstinence ) Hospital course: Ms. Stanley is a 36 year old female with history of chronic alcohol abuse and depression was admitted with confusion and altered mental status and generalized weakness. Patient was noted to have multiple lab abnormalities including acute renal failure, metabolic acidosis with lactic acidosis, hyponatremia, thought to be related to dehydration and alcohol abuse. Serum alcohol level was noted to be slightly high. She was admitted to ICU and monitored closely with IV hydration and correction of electrolytes and supportive care. She was also noted to have UTI and completed a 5 day course of IV Rocephin. Her mental status gradually improved but she was still quite lethargic although her labs returned to baseline and she was transferred to medical floor. She was initially noted to be weak and depressed and was obsessed about possible inner ear infection that was causing her gait ataxia and insisted several times on being evaluated by ENT as an inpatient. Although this is less likely and her history does not correlate with her presentation, ENT consult was attempted but there was no ENT coverage at the time. Patient was seen by geriatric social work professor multiple times and received resources for alcohol rehabilitation but she continues to report she does not have any problem with alcohol. Physical and occupational therapy evaluation was done and patient is medically stable for discharge with outpatient physical therapy. She has been provided with a referral for this. She was encouraged to follow up with her primary care provider and possibly obtain an outpatient referral for ENT if indicated. - Time Spent with Patient Total time spent providing and/or coordinating discharge services: Greater than 30 minutes (45 min) - Constitutional Vitals: Temp Pulse Resp BP Pulse Ox 98.1 F 84 18 104/67 99 02/19/17 14:49 02/19/17 14:49 02/19/17 14:49 02/19/17 14:49 02/19/17 14:49 General appearance: Present: cachectic, A&O X 3, underweight, answers questions appropriately - Cardiovascular Cardiovascular exam: Present: RRR, +S1, +S2. Absent: diastolic murmur, gallop, rubs, systolic murmur - VTE Documentation of Mechanical Device: Intermittent pneumatic compression device
== END 2017-02-19 20:40 | disposition home or self-care (01) | DRG 439 ==
LOC: EMEROO 13:28 → ICNU 16:18 → SUATTDRO 16:18 → ICNU 17:23 → 3ANU 02-15 17:13
PROVIDERS: ADMIT Internal Medicine Pulmonary Disease; ATTEND Internal Medicine

== ENCOUNTER 2017-07-25 00:51 | Inpatient (IN) ==
[2017-07-25 01:32] LABS: Bilirubin,Urine Moderate (Negative); Blood,Urine Moderate (Negative); Clarity,Urine Turbid (Clear); Color,Urine Orange (Yellow); Glucose,Urine (UA) Normal (Normal); Ketones,Urine >=160 mg/dL (Negative); Leukocyte Esterase,Urine Small (Negative); Nitrite,Urine Positive (Negative); PH,Urine 6.5 pH Units (5.0-8.0); Protein,Urine >=1000 mg/dL (Neg-Trace); Specific Gravity,Urine > 1.030 (1.010-1.025); Urobilinogen,Urine Normal (Normal)
[2017-07-25 01:39] LABS: Bacteria,Urine Few per hpf (None-Few); Hyaline Casts,Urine Few per lpf (None-Few); Squamous Epithelial Cell,Urine Few per lpf (None-Few)
[2017-07-25] MEDS ORDERED: *HR* Morphine 2 MG/ML SYRINGE IVP ONE (04:21)
[2017-07-25] MEDS ORDERED: Ondansetron 4 MG/2 ML VIAL IVP ONE ×2 (04:21→06:14)
[2017-07-25 04:38] LABS: Basophils % 0.1 %; Hematocrit 42.4 % (35.3-44.9); Hemoglobin 15.2 g/dL (11.5-15.4); Immature Granulocytes % 0.5 % (0-4); Immature Platelets 9.8 % (1.1-6.1); Lymphocytes # 0.4 K/mcL (0.6-4.6); Lymphocytes % 4.6 %; Mean Corpuscular HGB Conc 35.8 g/dL (31.6-35.5); Mean Corpuscular Hemoglobin 35.3 pg (28.0-33.3); Mean Corpuscular Volume 98.6 fL (83.0-100.0); Mean Platelet Volume 10.2 fL (9.4-12.4); Monocytes # 0.4 K/mcL (0.0-1.3); Neutrophils # 6.8 K/mcL (1.6-8.9); Platelet Count 103 K/mcL (140-400); Red Cell Distribution Width 14.6 % (11.5-14.5); Segmented Neutrophils % 89.8 %
[2017-07-25 04:54] LABS: Alanine Aminotransferase 104 Units/L (0-55); Albumin 4.5 g/dL (3.5-5.0); Albumin/Globulin Ratio 0.9 (1.1-2.2); Alkaline Phosphatase 163 Units/L (38-126); Aspartate Amino Transferase 209 Units/L (5-34); BUN/Creatinine Ratio 17 (6-26); Bilirubin,Indirect 1.3 mg/dL (0.0-1.2); Bilirubin,Total 2.3 mg/dL (0.2-1.2); Blood Urea Nitrogen 19 mg/dL (7-20); Carbon Dioxide 23 mEq/L (19-29); Chloride 81 mEq/L (98-109); Globulin 5.2 g/dL (2.4-3.5); Glucose 275 mg/dL (70-99); Osmolality,Calculated 288 (280-300); Potassium 3.3 mEq/L (3.5-4.5); Sodium 133 mEq/L (136-145); Total Protein 9.7 g/dL (6.0-8.3); eGFR For African Americans > 60 (> 60); eGFR For Non-African Americans 54 (> 60)
[2017-07-25 05:15] LABS: Lipase 4014 Units/L (8-78)
[2017-07-25] MEDS ORDERED: *HR* HYDROmorphone (PF) 1 MG/ML SYRINGE IVP ONE (06:14)
[2017-07-25] MEDS ORDERED: 0.9 % Sodium Chloride 1,000 ML IVC ONE ×2 (06:14→07:36)
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
[2017-07-25] MEDS ORDERED: Naloxone 0.4 MG/ML INJ IVP PRN (06:34)
[2017-07-25] MEDS ORDERED: *HR* Morphine 2 MG/ML SYRINGE IVP PRN (06:34)
--- NOTE | 2017-07-25 06:58 | Emergency Department Note ---
START Narrative - START START: I examined this patient and my medical decision-making was reviewed with the Resident Physician. I agree with the documented findings, disposition and treatment plan as described except to the extent set forth below. 37 showed female presented with abdominal pain. She was found to have pancreatitis. Patient will need to be admitted. CT showed evidence of pancreatitis as well as most likely pneumonia. We will need to start her on antibiotics as well.
[2017-07-25] MEDS ORDERED: Potassium Chloride 20 MEQ, Lidocaine 1% 2 ML in D5% in Water 250 ML IVPB ONE (07:41)
[2017-07-25] MEDS ORDERED: 0.9 % Sodium Chloride 1,000 ML IVC SCH (07:45)
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
[2017-07-25] MEDS ORDERED: Ondansetron 4 MG/2 ML VIAL IVP PRN (07:50)
[2017-07-25] MEDS ORDERED: Levofloxacin 750 MG/150 ML 750 MG/150 ML BAG IVPB SCH (09:00)
[2017-07-25] MEDS: Ondansetron 4 MG/2 ML VIAL IVP PRN ×3 (09:57→20:01)
[2017-07-25] MEDS: Pantoprazole 40 MG VIAL IVP SCH (10:05)
[2017-07-25] MEDS: *HR* Morphine 2 MG/ML SYRINGE IVP PRN ×3 (10:13→18:38)
[2017-07-25] MEDS: 0.9 % Sodium Chloride 1,000 ML IVC SCH (12:41)
[2017-07-25] MEDS: Levofloxacin 750 MG/150 ML 750 MG/150 ML BAG IVPB SCH (13:41)
[2017-07-25 16:48] LABS: Chol/HDL Ratio 3.4 (0-4.9)
[2017-07-26] MEDS: Ondansetron 4 MG/2 ML VIAL IVP PRN (00:33)
[2017-07-26] MEDS: *HR* Morphine 2 MG/ML SYRINGE IVP PRN ×4 (00:34→11:32)
[2017-07-26 04:23] LABS: Magnesium 1.5 mg/dL (1.6-2.6)
[2017-07-26] MEDS: 0.9 % Sodium Chloride 1,000 ML IVC SCH (04:58)
[2017-07-26] MEDS ORDERED: *HR* Enoxaparin 40 MG/0.4 ML SYRINGE SQ SCH (06:00)
[2017-07-26] MEDS: Pantoprazole 40 MG VIAL IVP SCH (08:05)
[2017-07-26] MEDS: Levofloxacin 750 MG/150 ML 750 MG/150 ML BAG IVPB SCH (08:06)
[2017-07-26 08:55] LABS: Basophils % 0.3 %; Hemoglobin 11.4 g/dL (11.5-15.4); Mean Corpuscular Hemoglobin 35.6 pg (28.0-33.3)
[2017-07-26 09:04] LABS: Eosinophils # 0.1 K/mcL (0.0-0.6); Eosinophils % 0.8 %; Hematocrit 33.1 % (35.3-44.9); Immature Granulocytes % 1.1 % (0-4); Immature Platelets 13.7 % (1.1-6.1); Lymphocytes # 1.1 K/mcL (0.6-4.6); Lymphocytes % 17.4 %; Mean Corpuscular HGB Conc 34.4 g/dL (31.6-35.5); Mean Corpuscular Volume 103.4 fL (83.0-100.0); Mean Platelet Volume 11.4 fL (9.4-12.4); Monocytes # 0.4 K/mcL (0.0-1.3); Monocytes % 6.5 %; Nucleated Red Blood Cells 0.8 /100 WBC (0); Red Cell Distribution Width 14.3 % (11.5-14.5); Segmented Neutrophils % 73.9 %
--- NOTE | 2017-07-26 09:13 | Gastroenterology Consult Note ---
Date of Encounter: 07/26/17 Time of Encounter: 09:10 - Assessment and plan (1) History of anxiety Current Visit: No Status: Acute (2) Alcohol abuse Current Visit: No Status: Chronic (3) Acute pancreatitis Current Visit: Yes Status: Acute Qualifiers: Qualified Code(s): K85.90 - Acute pancreatitis without necrosis or infection , unspecified - Time Spent With Patient Total time spent is greater than 50% in coordination of care (as documented) at patient's floor/unit and/or counseling patient: GI History of Present Illness - Data of Consult Consult date: 07/26/17 Requesting Physician: Yenni oBnd MD - Consult Narrative History of present illness: Ms. Stanley is a 37 year old female who comes in with severe epigastric pain after drinking a bottle of Vodka with friends along with nausea. She has had another episode of the same after drinking alcohol too. She had stopped drinking she said after the last episode but, some visiting friends started drinking yesterday and she joined them. She has 2 daughters and a son (son is 16). No fever or chills. Past Med Surg Social Fam HX - Past Medical History Medical history: non-contributory Psychiatric history: anxiety, depression - Past Surgical History Surgical History: non-contributory - Social History Smoking Status: Current some day smoker Smokeless Tobacco Status: No Alcohol use: occasionally Drug use: none - Family History Father Living Status: Age at : 50 Hx Family Cardiac Disorders: Yes Hx Family Respiratory Disorders: No Hx Family Cancer: No Hx Family GI Disorders: No Hx Family Endocrine Disorder: No Hx Family Neurologic Disorders: Yes Hx Family Medical Disorders: Yes - Gastrointestinal Gastrointestinal: Present: abdominal pain, nausea - Constitutional Constitutional: anorexia, fatigue - EENT Ears: Present: ear pain - Constitutional Vitals: Temp Pulse Resp BP Pulse Ox 98 F 79 18 110/84 98 07/26/17 08:54 07/26/17 08:54 07/26/17 08:54 07/26/17 08:54 07/26/17 08:54 - Eye Eye exam: Present: EOMI, PERRL - Neck Neck exam general surgery: Present: full ROM, normal inspection - GI/Abdominal GI/Abdominal exam: Present: tenderness Additional comments: Epigastric and periumbilical tenderness No gaurding\rebound Results - Labs CBC & Chem 7: 12/03/17 08:03 07/26/17 08:03 Labs: Last Result Calcium 11.0 mg/dL (8.6-10.8) H 07/25/17 04:30 C-Reactive Protein 24 mg/L (Less than 5) H 07/26/17 03:50 Triglycerides 131 mg/dL (< 150) 07/25/17 14:27 Entire Visit Hgb 15.2 g/dL (11.5-15.4) 07/25/17 04:30 Hct 42.4 % (35.3-44.9) 07/25/17 04:30 Total Bilirubin 2.3 mg/dL (0.2-1.2) H 07/25/17 04:30 AST 209 Units/L (5-34) H 07/25/17 04:30 ALT 104 Units/L (0-55) H 07/25/17 04:30 Lipase 4014 Units/L (8-78) H 07/25/17 04:30 - Impressions Impressions Abdomen Ultrasound 07/25/17 11:30 IMPRESSION: Diffuse increased echogenicity of the liver compatible with hepatic steatosis, diffuse hepatocellular disease. Gallbladder appears unremarkable in appearance. D/ / 07/25/2017 12:48:37 Alireza Arthur MD / roberto carlos Interpreting Provider: Alireza Arthur MD Consult Discharge Plan - Plan Referrals: NONE,PCP [Primary Care Provider] -
[2017-07-26 09:18] LABS: Neutrophils # 4.7 K/mcL (1.6-8.9); Platelet Count 77 K/mcL (140-400)
[2017-07-26 12:52] LABS: Alanine Aminotransferase 65 Units/L (0-55); Albumin 3.4 g/dL (3.5-5.0); Alkaline Phosphatase 108 Units/L (38-126); Aspartate Amino Transferase 137 Units/L (5-34); BUN/Creatinine Ratio 21 (6-26); Bilirubin,Direct 0.8 mg/dL (0.0-0.5); Bilirubin,Indirect 0.7 mg/dL (0.0-1.2); Bilirubin,Total 1.5 mg/dL (0.2-1.2); Blood Urea Nitrogen 11 mg/dL (7-20); Calcium 9.4 mg/dL (8.6-10.8); Carbon Dioxide 29 mEq/L (19-29); Chloride 96 mEq/L (98-109); Globulin 3.5 g/dL (2.4-3.5); Glucose 87 mg/dL (70-99); Osmolality,Calculated 277 (280-300); Potassium 3.3 mEq/L (3.5-4.5); Sodium 134 mEq/L (136-145); Total Protein 6.9 g/dL (6.0-8.3); Triglycerides 78 mg/dL (< 150); eGFR For African Americans > 60 (> 60); eGFR For Non-African Americans > 60 (> 60)
[2017-07-26 12:54] LABS: Lipase > 1200 Units/L (8-78)
[2017-07-26] MEDS ORDERED: *HR* OxyCODONE/APAP 5/325 TABLET PO PRN (17:02)
[2017-07-26] MEDS ORDERED: *HR* Morphine 2 MG/ML SYRINGE IVP PRN (17:02)
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
[2017-07-26] MEDS ORDERED: Magnesium Sulfate 2 GM in D5% in Water 100 ML IVPB ONE (17:04)
[2017-07-26] MEDS ORDERED: Potassium Chloride Elixir 20 MEQ/15 ML UDC PO ONE (17:04)
[2017-07-27 05:12] LABS: Basophils % 0.6 %; Eosinophils % 0.7 %; Mean Corpuscular HGB Conc 34.5 g/dL (31.6-35.5); Mean Platelet Volume 11.2 fL (9.4-12.4)
[2017-07-27 05:14] LABS: Hematocrit 32.5 % (35.3-44.9); Hemoglobin 11.2 g/dL (11.5-15.4); Immature Granulocytes % 0.7 % (0-4); Immature Platelets 13.5 % (1.1-6.1); Lymphocytes # 1.2 K/mcL (0.6-4.6); Lymphocytes % 21.3 %; Mean Corpuscular Hemoglobin 35.4 pg (28.0-33.3); Mean Corpuscular Volume 102.8 fL (83.0-100.0); Monocytes # 0.5 K/mcL (0.0-1.3); Monocytes % 8.9 %; Neutrophils # 3.7 K/mcL (1.6-8.9); Nucleated Red Blood Cells 0.4 /100 WBC (0); Red Blood Count 3.16 M/mcL (3.82-4.97); Red Cell Distribution Width 13.8 % (11.5-14.5); Segmented Neutrophils % 67.8 %
[2017-07-27 05:15] LABS: Platelet Count 92 K/mcL (140-400)
[2017-07-27 05:31] LABS: Alanine Aminotransferase 86 Units/L (0-55); Albumin 3.5 g/dL (3.5-5.0); Albumin/Globulin Ratio 0.9 (1.1-2.2); Alkaline Phosphatase 134 Units/L (38-126); Aspartate Amino Transferase 215 Units/L (5-34); BUN/Creatinine Ratio 10 (6-26); Bilirubin,Direct 0.8 mg/dL (0.0-0.5); Bilirubin,Indirect 0.8 mg/dL (0.0-1.2); Bilirubin,Total 1.6 mg/dL (0.2-1.2); Calcium 9.7 mg/dL (8.6-10.8); Carbon Dioxide 28 mEq/L (19-29); Chloride 93 mEq/L (98-109); Globulin 3.9 g/dL (2.4-3.5); Glucose 109 mg/dL (70-99); Osmolality,Calculated 274 (280-300); Potassium 3.5 mEq/L (3.5-4.5); Sodium 133 mEq/L (136-145); Total Protein 7.4 g/dL (6.0-8.3); eGFR For African Americans > 60 (> 60); eGFR For Non-African Americans > 60 (> 60)
[2017-07-27 05:38] LABS: Blood Urea Nitrogen 5 mg/dL (7-20); Lipase > 1200 Units/L (8-78)
[2017-07-27 07:52] VITALS: BP 155/119
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
== END 2017-07-27 08:01 | disposition left against medical advice (07) | DRG 439 ==
LOC: EMEROO 00:51 → 2NNU 00:51 → SUATTDRO 07:23 → 2NNU 08:20
PROVIDERS: ADMIT Internal Medicine Hematology & Oncology; ATTEND Internal Medicine

== ENCOUNTER 2017-07-28 12:34 | Inpatient (IN) ==
--- NOTE | 2017-07-28 13:56 | Emergency Department Note ---
Disposition Clinical Impression: Hypokalemia, Alcohol abuse Pancreatitis Qualifiers: Chronicity: acute Pancreatitis type: unspecified pancreatitis type Acute pancreatitis complication: unspecified Qualified Code(s): K85.90 - Acute pancreatitis without necrosis or infection, unspecified Disposition: Admitted As Inpatient Condition: Good Time of Disposition: 15:19 Abdominal Pain HPI - General Chief Complaint: ED Abdominal Pain Stated Complaint: Abdominal pain Time Seen by Provider: 07/28/17 13:29 Source: patient Mode of arrival: ambulatory Limitations: no limitations Nursing Notes Reviewed: Yes Vital Signs Reviewed: Yes - History of Present Illness HPI Narrative: Patient is a 37-year-old female with past medical history of chronic alcohol abuse. She was seen yesterday by myself and Dr. Julio, and she was diagnosed with pancreatitis. Prior to yesterday's visit, patient binge drank on 07/24 and was admitted around July 25 for pancreatitis, lipase levels were greater than 1200 that time. Patient was either discharged or left AMA, this is unknown as discharge notes were not finished at time of review. She returned yesterday afternoon/evening due to continued epigastric pain. At that time, lipase levels were in the 1600s. Urinalysis is negative. She also had hypokalemia of 3.0. She refused admission yesterday despite strong recommendation that she be admitted for NPO, pain meds, and IV fluids. She requested oral pain medication, then left AMA, refused to sign any AMA papers. She said she would return to the ED if she had change of mind or worsening pain. She returned multiple times yesterday after her encounter, kept telling the hotel front desk agent she had an appt with myself and/or Dr. Julio to get admitted. She left multiple times from waiting room, finally found by security roaming hallways. I along with medical student, almas Buchanan, and security that she was welcome to sign in to be re-evaluated and admitted. She said she did not want to be evaluated and left. Today, she called ED board of education secretary and asked if letha or Dr. Julio were here and that she had an appt with us to be admitted. On exam, patient states that she returned for pain control. She said that she did not really want to stay but was eventually agreeable with admission. We discussed multiple times with myself, the medical student, ED airdrop systems technician Chanel that patient would benefit from admission, nothing by mouth status, IV fluids, pain control for pancreatitis. She was agreeable with this plan. She agrees to stay for admission and promises not to leave AMA after receiving pain medication. She also states that she wants to stop drinking alcohol. Her last drink was yesterday. Pain Scale: 5 - Related Data Home Medications Medication Instructions Recorded Confirmed No Known Home Drugs 07/28/17 07/28/17 Allergies Allergy/AdvReac Type Severity Reaction Status Date / Time diphenhydramine Allergy Rash Verified 07/28/17 12:55 [From Benadryl] Penicillins [PCN] Allergy Rash Verified 07/28/17 12:55 All systems ED: reviewed and negative except as stated. Constitutional: Denies: fever Cardiovascular: Denies: chest pain, palpitations Respiratory: Denies: cough, dyspnea, wheezes Gastrointestinal: Reports: abdominal pain, nausea. Denies: vomiting, diarrhea, constipation, hematemesis Genitourinary: Denies: urgency, dysuria, frequency Neurological: Denies: weakness, numbness, paresthesias Abdominal Pain PMH - Past Medical History Medical history: Reports: other Female Surgical History: Reports: no surgical history PRODUCT MANAGEMENT MANAGER history: Reports: no PRODUCT MANAGEMENT MANAGER history Psychiatric history: Reports: anxiety, depression - Social History Smoking status: Current every day smoker Alcohol use: Reports: rarely Drug use: Reports: none Physical Exam - General Limitations: no limitations General appearance: alert, in no apparent distress - Head Head exam: atraumatic, normocephalic, normal inspection - Eye Eye exam: Present: normal appearance, PERRL, EOMI - ENT ENT exam: normal exam, normal oropharynx, mucous membranes moist - Neck Neck exam: Present: normal inspection, full ROM, trachea midline - Chest Chest inspection: Present: normal inspection, symmetric chest wall rise - Respiratory Respiratory exam: Present: normal lung sounds bilaterally - Cardiovascular Cardiovascular exam: Present: regular rate, normal rhythm, normal heart sounds - Abdominal Exam Abdominal exam: Present: tenderness (Epigastric region, moderate). Absent: distention, guarding, rebound - Extremities Exam Extremities exam: Present: normal inspection, full ROM. Absent: tenderness, pedal edema - Back Exam Back exam: Present: normal inspection, full ROM. Absent: tenderness - Neurological Exam Neurological exam: Present: alert, oriented X3 - Psychiatric Psychiatric exam: Present: normal affect, normal mood - Skin Skin exam: Present: warm, dry, intact, normal color Course Course Narrative: Vitals within normal limits on exam. Physical exam shows epigastric tenderness , moderate in intensity. Otherwise, the rest of the physical exam was benign. Labs were drawn, no major abnormality in white blood cell count or hemoglobin. She did have hypokalemia of 2.8. Lipase and 1800s. This is increased from yesterday's lipase at 1600. We will give the patient fluids, pain medication, banana bag, K rider potassium 40 mEq with lidocaine. Hospitalist has accepted for admission. Vital Signs Temperature 98.5 F 07/28/17 12:51 Pulse Rate 95 07/28/17 12:51 Respiratory Rate 16 07/28/17 12:51 Blood Pressure 117/84 07/28/17 12:51 O2 Sat by Pulse Oximetry 97 07/28/17 12:51 Temperature 98.7 F 07/28/17 17:07 Pulse Rate 97 07/28/17 17:07 Respiratory Rate 15 07/28/17 17:07 Blood Pressure 115/87 07/28/17 17:07 O2 Sat by Pulse Oximetry 100 07/28/17 17:07 Oxygen Delivery Oxygen Delivery Room Air Abdominal Pain - MDM Narrative Medical decision making narrative: Vitals within normal limits on exam. Physical exam shows epigastric tenderness , moderate in intensity. Otherwise, the rest of the physical exam was benign. Labs were drawn, no major abnormality in white blood cell count or hemoglobin. She did have hypokalemia of 2.8. Lipase and 1800s. This is increased from yesterday's lipase at 1600. We will give the patient fluids, pain medication, banana bag, K rider potassium 40 mEq with lidocaine. Hospitalist has accepted for admission. - Medical Records Medical records reviewed: Yes I reviewed the patient's medical records. - Lab Data Lab results reviewed: Yes I reviewed the patient's lab results. Result diagrams: 07/28/17 13:59 07/28/17 13:59 Lab Results 07/28/17 07/28/17 07/28/17 Range/Units 13:59 13:59 13:59 WBC 5.5 (4.3-11.1) K/mcL RBC 3.23 L (3.82-4.97) M/mcL Hgb 11.5 (11.5-15.4) g/dL Hct 33.4 L (35.3-44.9) % MCV 103.4 H (83.0-100.0) fL MCH 35.6 H (28.0-33.3) pg MCHC 34.4 (31.6-35.5) g/dL RDW 14.3 (11.5-14.5) % Plt Count 172 D (140-400) K/mcL MPV 9.9 (9.4-12.4) fL Immature Gran % 0.7 (0-4) % Seg Neutrophils % 56.2 % Lymphocytes % 26.7 % Monocytes % 15.2 % Eosinophils % 0.5 % Basophils % 0.7 % Neutrophils # 3.1 (1.6-8.9) K/mcL Lymphocytes # 1.5 (0.6-4.6) K/mcL Monocytes # 0.8 (0.0-1.3) K/mcL Eosinophils # 0.0 (0.0-0.6) K/mcL Basophils # 0.0 (0.0-0.2) K/mcL Sodium 135 L (136-145) mEq/L Potassium 2.8 L (3.5-4.5) mEq/L Chloride 94 L (98-109) mEq/L Carbon Dioxide 28 (19-29) mEq/L BUN 5 L (7-20) mg/dL Creatinine 0.57 (0.57-1.11) mg/dL Est GFR ( Amer) > 60 (> 60) Est GFR (Non-Af Amer) > 60 (> 60) BUN/Creatinine Ratio 9 (6-26) Glucose 149 H (70-99) mg/dL Calculated Osmolality 280 (280-300) Calcium 10.3 (8.6-10.8) mg/dL Total Bilirubin 1.0 (0.2-1.2) mg/dL Direct Bilirubin 0.5 (0.0-0.5) mg/dL Indirect Bilirubin 0.5 (0.0-1.2) mg/dL AST 237 H (5-34) Units/L ALT 122 H (0-55) Units/L Alkaline Phosphatase 149 H (38-126) Units/L Serum Total Protein 7.8 (6.0-8.3) g/dL Albumin 3.7 (3.5-5.0) g/dL Globulin 4.1 H (2.4-3.5) g/dL Albumin/Globulin Ratio 0.9 L (1.1-2.2) Amylase 432 H (25-125) Units/L Lipase 1829 H (8-78) Units/L Ethyl Alcohol < 10 (0-10) mg/dL S.B.A.R. - S.B.A.R. Situation: Demographics, MOA Background: Presenting Complaint, Relevant PMH, Meds, & Allergies Assessment: Vital Signs, Course and respsone to treatment, Exam Concerns, Patient/Family Expectation, Pertinant Lab Results, Outstanding Labs Recommendation: Barrier(s) to disposition, Recommendation based on pending studies, treatments, or consults S.B.A.R. Report Given to: Dr. Keysha Stallings Repor Time: 15:19 Attestation Statement - Attestation Attestation: I examined this patient and my medical decision-making was reviewed with the Resident Physician, Dr. Link. I agree with the documented findings, disposition and treatment plan as described except to the extent set forth below. Patient is a 37-year-old female with history of chronic pancreatitis and chronic alcohol abuse who returns today to the emergency department for epigastric abdominal pain and worsening symptoms after she left multiple times AGAINST MEDICAL ADVICE yesterday. Patient returns today stating that after she resumed her normal diet that she began having gradually worsening epigastric pain and nausea and vomiting. I agree with patient's physical exam findings as documented. Patient distress on arrival. We had a long conversation with the patient in regards to being compliant in regards to admission and she states that she does want to stay today for admission prior to us inserting an IV and administering pain medication. Patient's labs are consistent with yesterday's but slightly worse in regards to her elevated lipase, and hypokalemia. Patient is receiving IV fluids, pain medications, and electrolyte replacement and will be admitted to the hospitalist service.
[2017-07-28 14:06] LABS: Basophils % 0.7 %; Eosinophils % 0.5 %; Hematocrit 33.4 % (35.3-44.9); Hemoglobin 11.5 g/dL (11.5-15.4); Immature Granulocytes % 0.7 % (0-4); Lymphocytes # 1.5 K/mcL (0.6-4.6); Lymphocytes % 26.7 %; Mean Corpuscular HGB Conc 34.4 g/dL (31.6-35.5); Mean Corpuscular Hemoglobin 35.6 pg (28.0-33.3); Mean Corpuscular Volume 103.4 fL (83.0-100.0); Mean Platelet Volume 9.9 fL (9.4-12.4); Monocytes # 0.8 K/mcL (0.0-1.3); Monocytes % 15.2 %; Neutrophils # 3.1 K/mcL (1.6-8.9); Platelet Count 172 K/mcL (140-400); Red Blood Count 3.23 M/mcL (3.82-4.97); Red Cell Distribution Width 14.3 % (11.5-14.5); Segmented Neutrophils % 56.2 %
[2017-07-28] MEDS: 0.9 % Sodium Chloride 1,000 ML IVC SCH ×3 (14:13→23:20)
[2017-07-28 14:22] LABS: Alanine Aminotransferase 122 Units/L (0-55); Albumin 3.7 g/dL (3.5-5.0); Albumin/Globulin Ratio 0.9 (1.1-2.2); Alkaline Phosphatase 149 Units/L (38-126); Amylase 432 Units/L (25-125); Aspartate Amino Transferase 237 Units/L (5-34); BUN/Creatinine Ratio 9 (6-26); Bilirubin,Direct 0.5 mg/dL (0.0-0.5); Bilirubin,Indirect 0.5 mg/dL (0.0-1.2); Calcium 10.3 mg/dL (8.6-10.8); Carbon Dioxide 28 mEq/L (19-29); Chloride 94 mEq/L (98-109); Globulin 4.1 g/dL (2.4-3.5); Glucose 149 mg/dL (70-99); Osmolality,Calculated 280 (280-300); Potassium 2.8 mEq/L (3.5-4.5); Sodium 135 mEq/L (136-145); Total Protein 7.8 g/dL (6.0-8.3); eGFR For African Americans > 60 (> 60); eGFR For Non-African Americans > 60 (> 60)
[2017-07-28 14:41] LABS: Lipase 1829 Units/L (8-78)
[2017-07-28 14:44] LABS: Blood Urea Nitrogen 5 mg/dL (7-20)
[2017-07-28] MEDS ORDERED: Potassium Chloride 40 MEQ, Lidocaine 1% 2 ML in D5% in Water 500 ML IVPB ONE (15:01)
[2017-07-28] MEDS: Thiamine (B-1) 100 MG, Folic Acid 1 MG in 0.9 % Sodium Chloride 50 ML IVPB SCH (15:09)
[2017-07-28] MEDS ORDERED: *HR* HYDROmorphone (PF) 1 MG/ML SYRINGE IVP ONE (15:16)
[2017-07-28] MEDS ORDERED: Naloxone 0.4 MG/ML INJ IVP PRN (20:02)
[2017-07-28] MEDS ORDERED: Ondansetron 4 MG/2 ML VIAL IVP PRN (20:02)
--- NOTE | 2017-07-28 20:07 | Internal Med History&Physical ---
Date of Encounter: 07/28/17 Time of Encounter: 20:00 Assessment and Plan (1) Acute pancreatitis Current visit: Yes Status: Acute Acute on chronic pancreatitis, secondary to alcohol abuse NPO, IV fluids, IV Protonix, IV Zofran as needed Lipase - 1829 Cardiac telemetry, labs in a.m., monitor closely Qualifiers: Pancreatitis type: alcohol induced Acute pancreatitis complication: no infection or necrosis Qualified Code(s): K85.20 - Alcohol induced acute pancreatitis without necrosis or infection (2) Alcohol abuse Current visit: Yes Status: Chronic Chronic alcohol abuse, counseled about cessation IV Ativan as needed for withdrawal symptoms, [facility] protocol IV thiamine, folic acid (3) DVT prophylaxis Current visit: Yes Status: Acute Heparin subcutaneous Internal Medicine - H&P: HPI Chief complaint: Abdominal pain Admitted From: Emergency Dept Plans for Post Hospital Care: Home History of present illness: Ms. Stanley is a 37 year old female with past medical history of chronic pancreatitis and alcohol abuse. Patient presents to the ED with complaints of abdominal pain and nausea. Examined in the room. Patient is awake and alert. Not in any distress. Able to provide all history. No family members at bedside. Patient is emotionally labile. She complains of chronic abdominal pain which is almost constant. She was seen in the ER yesterday for similar complaints. She comes back with worsening abdominal pain and nausea. Patient recently was treated for acute pancreatitis. Her last alcoholic drink was yesterday. Patient continues to drink alcohol daily. Denies chest pain or shortness of breath. She describes the abdominal pain is dull and cramping. Rates at 6/10. Not radiating. Associated with vomiting and nausea. No diarrhea. No other associated symptoms. No acute complaints. Initial workup in the ED is significant for hypokalemia and elevated lipase level. Patient is being admitted for acute pancreatitis. She will be NPO and on IV fluids. She will be on IV morphine for pain control. Patient has been explained about her condition and plan of care in detail. She understood and agreed. No unanswered questions Past Med Surg Social Fam HX - Past Medical History Medical history: other Psychiatric history: anxiety, depression - Past Surgical History Surgical History: non-contributory - Social History Smoking Status: Current every day smoker Smokeless Tobacco Status: No Alcohol use: rarely Drug use: none - Family History Father Living Status: Hx Family Cardiac Disorders: Yes Hx Family Respiratory Disorders: No Hx Family Cancer: No Hx Family GI Disorders: No Hx Family Endocrine Disorder: No Hx Family Neurologic Disorders: Yes Internal Medicine - H&P: Meds No Known Home Drugs 07/28/17 [History] 3 Allergy/AdvReac Type Severity Reaction Status Date / Time diphenhydramine Allergy Rash Verified 07/28/17 12:55 [From Benadryl] Penicillins [PCN] Allergy Rash Verified 07/28/17 12:55 All Systems PM: A 10-system review of systems was performed and is negative for pertinent findings except as documented above in the HPI. - Constitutional Constitutional: fatigue, weakness, no fever(s) - EENT Eyes: no blurry vision Nose, mouth and throat: dry mouth - Cardiovascular Cardiovascular ROS IM: no chest pain, no dyspnea, no dyspnea on exertion, no edema, no lightheadedness, no orthopnea, no palpitations, no syncope - Respiratory Respiratory: no cough, no dyspnea, no hemoptysis, no dyspnea on exertion, no wheezing, no chest congestion - Gastrointestinal Gastrointestinal: abdominal pain, bloating, nausea, vomiting, no diarrhea, no dysphagia, no heartburn, no hematemesis, no hematochezia, no loose stools, no melena - Genitourinary Genitourinary: no dysuria - Neurological Neurological ROS: no abnormal gait, no confusion, no dizziness, no frequent falls, no loss of vision, no paresthesias, no tingling - Constitutional Vitals: Temp Pulse Resp BP Pulse Ox 98.3 F 93 16 110/73 96 07/28/17 19:23 07/28/17 19:23 07/28/17 19:23 07/28/17 19:23 07/28/17 19:14 General appearance: Present: cachectic, cooperative, A&O X 3, pleasant, no acute distress, answers questions appropriately - Head Head exam: Present: atraumatic - Eye Eye exam: Present: EOMI - ENT ENT exam: Present: mucous membranes dry - Respiratory Respiratory exam: Present: wheezes (Mild bibasilar). Absent: accessory muscle use, rales, respiratory distress, rhonchi, tachypnea - Cardiovascular Cardiovascular exam: Present: RRR, +S1, +S2 - GI/Abdominal GI/Abdominal exam: Present: soft, tenderness (Mild generalized abdominal tenderness.), no peritoneal signs. Absent: distended, firm, guarding - Extremities Exam Extremities exam: Present: radial pulses palpable and symmetrical. Absent: calf tenderness, pedal edema - Neurological Exam Neurological exam: Present: alert, oriented X3, no focal deficits. Absent: facial droop, speech deficit Internal Med - H&P Results - Labs CBC & Chem 7: 07/28/17 13:59 07/28/17 13:59
[2017-07-28 21:18] LABS: Prothrombin Time 11.2 Seconds (9.4-12.1)
[2017-07-28 22:44] LABS: Bilirubin,Urine Negative (Negative); Blood,Urine Negative (Negative); Color,Urine Dark Yellow (Yellow); Glucose,Urine (UA) Normal (Normal); Ketones,Urine Negative (Negative); Leukocyte Esterase,Urine Negative (Negative); Nitrite,Urine Negative (Negative); Protein,Urine Negative (Neg-Trace); Specific Gravity,Urine 1.019 (1.010-1.025); Urobilinogen,Urine Normal (Normal)
[2017-07-28 22:46] LABS: Clarity,Urine Hazy (Clear)
[2017-07-28] MEDS ORDERED: *HR* LORazepam 2 MG/ML VIAL IVP PRN ×3 (23:03)
[2017-07-28] MEDS ORDERED: *HR* Promethazine 25 MG/ML VIAL IVP PRN (23:03)
[2017-07-28] MEDS: *HR* Morphine 2 MG/ML SYRINGE IVP PRN (23:29)
[2017-07-28 23:37] LABS: INR 1.1; Prothrombin Time 11.7 Seconds (9.4-12.1)
[2017-07-28 23:47] LABS: Amylase 293 Units/L (25-125); Lipase 962 Units/L (8-78)
[2017-07-29] MEDS ORDERED: Magnesium Sulfate 2 GM in D5% in Water 100 ML IVPB ONE (00:45)
[2017-07-29] MEDS: Pantoprazole 40 MG VIAL IVP SCH ×2 (01:25→05:55)
[2017-07-29 04:00] LABS: Basophils % 0.8 %; Eosinophils # 0.1 K/mcL (0.0-0.6); Eosinophils % 2.8 %; Hematocrit 27.2 % (35.3-44.9); Immature Granulocytes % 0.8 % (0-4); Lymphocytes # 1.3 K/mcL (0.6-4.6); Mean Corpuscular HGB Conc 33.5 g/dL (31.6-35.5); Mean Corpuscular Volume 107.5 fL (83.0-100.0); Mean Platelet Volume 10.2 fL (9.4-12.4); Monocytes # 0.9 K/mcL (0.0-1.3); Platelet Count 152 K/mcL (140-400); Red Blood Count 2.53 M/mcL (3.82-4.97); Red Cell Distribution Width 14.6 % (11.5-14.5); Segmented Neutrophils % 39.6 %
[2017-07-29 04:08] LABS: Hemoglobin 9.1 g/dL (11.5-15.4); Neutrophils # 1.5 K/mcL (1.6-8.9)
[2017-07-29 04:16] LABS: Alanine Aminotransferase 81 Units/L (0-55); Albumin/Globulin Ratio 0.9 (1.1-2.2); Alkaline Phosphatase 102 Units/L (38-126); Aspartate Amino Transferase 114 Units/L (5-34); BUN/Creatinine Ratio 11 (6-26); Bilirubin,Total 0.7 mg/dL (0.2-1.2); Calcium 8.9 mg/dL (8.6-10.8); Carbon Dioxide 23 mEq/L (19-29); Chloride 102 mEq/L (98-109); Globulin 3.1 g/dL (2.4-3.5); Glucose 99 mg/dL (70-99); Lipase 1040 Units/L (8-78); Osmolality,Calculated 277 (280-300); Potassium 3.3 mEq/L (3.5-4.5); Sodium 135 mEq/L (136-145); eGFR For African Americans > 60 (> 60); eGFR For Non-African Americans > 60 (> 60)
[2017-07-29 04:19] LABS: Albumin 2.8 g/dL (3.5-5.0); Blood Urea Nitrogen 5 mg/dL (7-20); Total Protein 5.9 g/dL (6.0-8.3)
[2017-07-29 04:35] LABS: Platelet Estimate Normal (Normal)
[2017-07-29] MEDS: *HR* Heparin 5,000 UNIT/ML VIAL SQ SCH ×2 (05:55→17:34)
[2017-07-29] MEDS: *HR* Morphine 2 MG/ML SYRINGE IVP PRN (06:03)
[2017-07-29] MEDS ORDERED: Potassium Chloride 40 MEQ, Lidocaine 1% 2 ML in D5% in Water 500 ML IVPB ONE (07:23)
[2017-07-29] MEDS: Vitamin B Complex/Vit C/Vit E 1 EACH TABLET PO SCH (08:59)
[2017-07-29] MEDS: Thiamine (B-1) 100 MG TABLET PO SCH (08:59)
[2017-07-29] MEDS: Folic Acid 1 MG TABLET PO SCH (09:00)
[2017-07-29] MEDS: 0.9 % Sodium Chloride 1,000 ML IVC SCH (10:31)
[2017-07-29] MEDS: *HR* HYDROmorphone (PF) 1 MG/ML SYRINGE IVP PRN ×2 (10:58→17:33)
--- NOTE | 2017-07-29 14:33 | Internal Med Progress Note ---
Date of Encounter: 07/29/17 Time of Encounter: 08:00 - Assessment and plan (1) Acute pancreatitis Current Visit: Yes Status: Acute Assessment and plan: Patient has abdominal pain with elevated lipase. History of alcoholism. History of similar pancreatitis previously. - We will continue IV fluid, nothing by mouth, and pain management. - Follow up lipase level. Qualifiers: Pancreatitis type: alcohol induced Acute pancreatitis complication: no infection or necrosis Qualified Code(s): K85.20 - Alcohol induced acute pancreatitis without necrosis or infection (2) Hypokalemia Current Visit: Yes Status: Acute Assessment and plan: Supplement is given. (3) Alcohol abuse Current Visit: Yes Status: Chronic Assessment and plan: Education of alcohol cessation. Place patient on CIWA protocol for withdrawal prevention. blood bank worker consult for detox referral. (4) DVT prophylaxis Current Visit: Yes Status: Acute Assessment and plan: Heparin subcutaneously - Time Spent With Patient 25 - 35 minutes - Subjective Interval history: Patient was seen and examined. States abdominal pain is still there but improved. Still has nausea but no vomiting. No fever, vitals stable. Lipase is still high. We will continue nothing by mouth and IV fluid. Continue CIWA protocol. - Constitutional Vitals: Temp Pulse Resp BP Pulse Ox 97.8 F 99 14 127/86 98 07/29/17 14:01 07/29/17 14:01 07/29/17 14:01 07/29/17 14:01 07/29/17 14:01 General appearance: Present: cooperative, A&O X 3, pleasant, no acute distress, answers questions appropriately - Head Head exam: Present: atraumatic, normocephalic - Eye Eye exam: Present: PERRL, conjuntiva pink, sclera anicteric Pupils: Present: PERRL - Neck Neck exam general surgery: Present: supple, trachea midline. Absent: lymphadenopathy - Respiratory Respiratory exam: Present: CTAB. Absent: accessory muscle use, rales, rhonchi, wheezes - Cardiovascular Cardiovascular exam: Present: RRR, +S1, +S2. Absent: diastolic murmur, gallop, rubs, systolic murmur - GI/Abdominal GI/Abdominal exam: Present: normal bowel sounds, soft, tenderness (Mild to moderate tenderness without rebound or guarding), no peritoneal signs. Absent: distended - Extremities Exam Extremities exam: Present: warm, radial pulses palpable and symmetrical. Absent : calf tenderness, cyanotic, pedal edema - Neurological Exam Neurological exam: Present: CN II-XII intact, oriented X3, no focal deficits. Absent: pronater drift, facial droop, speech deficit - Skin Skin exam: Present: dry, intact Internal Medicine: Result - Labs CBC & Chem 7: 07/29/17 03:40 07/29/17 03:40 Labs: Short CBC 07/29/17 Range/Units 03:40 WBC 3.9 L (4.3-11.1) K/mcL Hgb 9.1 L D (11.5-15.4) g/dL Hct 27.2 L (35.3-44.9) % Plt Count 152 (140-400) K/mcL Neutrophils # 1.5 L (1.6-8.9) K/mcL BMP 07/29/17 03:40 Sodium 135 L Potassium 3.3 L Chloride 102 Carbon Dioxide 23 BUN 5 L Creatinine 0.46 L Glucose 99 Calcium 8.9 Liver Function 07/29/17 Range/Units 03:40 Total Bilirubin 0.7 (0.2-1.2) mg/dL AST 114 H (5-34) Units/L ALT 81 H (0-55) Units/L Alkaline Phosphatase 102 (38-126) Units/L Albumin 2.8 L D (3.5-5.0) g/dL Urine 07/28/17 Range/Units 22:28 Urine Color Dark Yellow (Yellow) Urine Clarity Hazy A (Clear) Urine pH 7.0 (5.0-8.0) pH Units Ur Specific [place] 1.019 (1.010-1.025) Urine Protein Negative (Neg-Trace) mg/dL Urine Glucose (UA) Normal (Normal) mg/dL - ABG Interpretation ABG results: PT/INR, D-dimer PT 11.7 Seconds (9.4-12.1) 07/28/17 23:21 Consult Discharge Plan - Plan Referrals: Dejan Ratliff MD [Primary Care Provider] -
[2017-07-29] MEDS: Thiamine (B-1) 100 MG, Folic Acid 1 MG in 0.9 % Sodium Chloride 50 ML IVPB SCH (17:28)
--- NOTE | 2017-07-29 19:26 | Electrocardiograph Report ---
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
--- NOTE | 2017-07-29 19:27 | Electrocardiograph Report ---
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
[2017-07-30] MEDS: *HR* HYDROmorphone (PF) 1 MG/ML SYRINGE IVP PRN ×4 (02:30→19:54)
[2017-07-30 04:39] LABS: Basophils % 0.6 %; Eosinophils # 0.1 K/mcL (0.0-0.6); Eosinophils % 2.2 %; Hematocrit 30.3 % (35.3-44.9); Hemoglobin 9.9 g/dL (11.5-15.4); Immature Granulocytes % 1.2 % (0-4); Lymphocytes % 20.1 %; Mean Corpuscular HGB Conc 32.7 g/dL (31.6-35.5); Mean Corpuscular Volume 110.2 fL (83.0-100.0); Mean Platelet Volume 10.6 fL (9.4-12.4); Monocytes % 22.9 %; Platelet Count 222 K/mcL (140-400); Red Blood Count 2.75 M/mcL (3.82-4.97)
[2017-07-30 04:49] LABS: Monocytes # 1.2 K/mcL (0.0-1.3); Neutrophils # 2.7 K/mcL (1.6-8.9)
[2017-07-30 05:02] LABS: BUN/Creatinine Ratio 8 (6-26); Calcium 8.7 mg/dL (8.6-10.8); Carbon Dioxide 18 mEq/L (19-29); Chloride 103 mEq/L (98-109); Glucose 75 mg/dL (70-99); Osmolality,Calculated 278 (280-300); Potassium 3.5 mEq/L (3.5-4.5); Sodium 136 mEq/L (136-145); eGFR For African Americans > 60 (> 60); eGFR For Non-African Americans > 60 (> 60)
[2017-07-30 05:03] LABS: Blood Urea Nitrogen 4 mg/dL (7-20)
[2017-07-30 05:27] LABS: Platelet Estimate Normal (Normal)
[2017-07-30 05:28] LABS: Large Platelets Present (Not Present)
[2017-07-30] MEDS: *HR* Heparin 5,000 UNIT/ML VIAL SQ SCH ×2 (06:11→18:01)
[2017-07-30] MEDS: 0.9 % Sodium Chloride 1,000 ML IVC SCH ×2 (06:18→16:12)
[2017-07-30] MEDS: Pantoprazole 40 MG VIAL IVP SCH (06:19)
[2017-07-30] MEDS: Folic Acid 1 MG TABLET PO SCH (07:50)
[2017-07-30] MEDS: Vitamin B Complex/Vit C/Vit E 1 EACH TABLET PO SCH (07:50)
[2017-07-30] MEDS: Thiamine (B-1) 100 MG TABLET PO SCH (07:50)
--- NOTE | 2017-07-30 14:42 | Internal Med Progress Note ---
Date of Encounter: 07/30/17 Time of Encounter: 09:00 - Assessment and plan (1) Acute pancreatitis Current Visit: Yes Status: Acute Assessment and plan: Patient has abdominal pain with elevated lipase. History of alcoholism. History of similar pancreatitis previously. - We will continue IV fluid, advance to clear liquid diet, cont pain management. - Follow up lipase level. Lipase trend down. - Although most likely pancreatitis is caused by alcoholism, will check US abd to r/o gall stone. Qualifiers: Pancreatitis type: alcohol induced Acute pancreatitis complication: no infection or necrosis Qualified Code(s): K85.20 - Alcohol induced acute pancreatitis without necrosis or infection (2) Hypokalemia Current Visit: Yes Status: Acute Assessment and plan: Improved after supplement. (3) Alcohol abuse Current Visit: Yes Status: Chronic Assessment and plan: Education of alcohol cessation. Place patient on CIWA protocol for withdrawal prevention. forming process worker consult for detox referral. (4) DVT prophylaxis Current Visit: Yes Status: Acute Assessment and plan: Heparin subcutaneously - Time Spent With Patient 25 - 35 minutes - Subjective Interval history: Patient was seen and examined. States abdominal pain has improved. Still has mild nausea. No fever, vitals stable. Lipase is trending down. Will start clear liquid diet. Continue CIWA protocol. No signs of alcohol withdraw. - Constitutional Vitals: Temp Pulse Resp BP Pulse Ox 98.9 F 86 16 137/86 99 07/30/17 11:13 07/30/17 11:13 07/30/17 11:13 07/30/17 11:13 07/30/17 11:13 General appearance: Present: cooperative, A&O X 3, pleasant, no acute distress, answers questions appropriately - Head Head exam: Present: atraumatic, normocephalic - Eye Eye exam: Present: PERRL, conjuntiva pink, sclera anicteric Pupils: Present: PERRL - Neck Neck exam general surgery: Present: supple, trachea midline. Absent: lymphadenopathy - Respiratory Respiratory exam: Present: CTAB. Absent: accessory muscle use, rales, rhonchi, wheezes - Cardiovascular Cardiovascular exam: Present: RRR, +S1, +S2. Absent: diastolic murmur, gallop, rubs, systolic murmur - GI/Abdominal GI/Abdominal exam: Present: normal bowel sounds, soft, tenderness (Mild LUQ tenderness), no peritoneal signs. Absent: distended - Extremities Exam Extremities exam: Present: warm, radial pulses palpable and symmetrical. Absent : calf tenderness, cyanotic, pedal edema - Neurological Exam Neurological exam: Present: CN II-XII intact, oriented X3, no focal deficits. Absent: pronater drift, facial droop, speech deficit - Skin Skin exam: Present: dry, intact Internal Medicine: Result - Labs CBC & Chem 7: 07/30/17 04:01 07/30/17 04:01 Labs: Short CBC 07/30/17 Range/Units 04:01 WBC 5.0 (4.3-11.1) K/mcL Hgb 9.9 L (11.5-15.4) g/dL Hct 30.3 L (35.3-44.9) % Plt Count 222 (140-400) K/mcL Neutrophils # 2.7 (1.6-8.9) K/mcL BMP 07/30/17 04:01 Sodium 136 Potassium 3.5 Chloride 103 Carbon Dioxide 18 L BUN 4 L Creatinine 0.50 L Glucose 75 Calcium 8.7 - ABG Interpretation ABG results: PT/INR, D-dimer PT 11.7 Seconds (9.4-12.1) 07/28/17 23:21 Consult Discharge Plan - Plan Referrals: Dejan Ratliff MD [Primary Care Provider] -
[2017-07-30] MEDS: Thiamine (B-1) 100 MG, Folic Acid 1 MG in 0.9 % Sodium Chloride 50 ML IVPB SCH (16:13)
[2017-07-31] MEDS: *HR* HYDROmorphone (PF) 1 MG/ML SYRINGE IVP PRN ×4 (02:26→19:54)
[2017-07-31] MEDS: 0.9 % Sodium Chloride 1,000 ML IVC SCH (02:52)
[2017-07-31 04:27] LABS: Eosinophils # 0.1 K/mcL (0.0-0.6); Eosinophils % 2.7 %; Hematocrit 29.4 % (35.3-44.9); Hemoglobin 9.7 g/dL (11.5-15.4); Immature Granulocytes % 0.7 % (0-4); Lymphocytes # 0.9 K/mcL (0.6-4.6); Lymphocytes % 22.5 %; Mean Corpuscular Hemoglobin 36.1 pg (28.0-33.3); Mean Corpuscular Volume 109.3 fL (83.0-100.0); Mean Platelet Volume 10.7 fL (9.4-12.4); Monocytes # 1.2 K/mcL (0.0-1.3); Monocytes % 28.3 %; Platelet Count 301 K/mcL (140-400); Red Blood Count 2.69 M/mcL (3.82-4.97); Segmented Neutrophils % 44.8 %
[2017-07-31 04:34] LABS: Neutrophils # 1.8 K/mcL (1.6-8.9)
[2017-07-31 04:43] LABS: Alanine Aminotransferase 64 Units/L (0-55); Albumin 2.7 g/dL (3.5-5.0); Albumin/Globulin Ratio 0.8 (1.1-2.2); Alkaline Phosphatase 109 Units/L (38-126); Aspartate Amino Transferase 65 Units/L (5-34); BUN/Creatinine Ratio 4 (6-26); Bilirubin,Total 0.5 mg/dL (0.2-1.2); Calcium 8.5 mg/dL (8.6-10.8); Carbon Dioxide 23 mEq/L (19-29); Chloride 105 mEq/L (98-109); Globulin 3.3 g/dL (2.4-3.5); Glucose 115 mg/dL (70-99); Lipase 310 Units/L (8-78); Osmolality,Calculated 287 (280-300); Potassium 2.9 mEq/L (3.5-4.5); Sodium 140 mEq/L (136-145); eGFR For African Americans > 60 (> 60); eGFR For Non-African Americans > 60 (> 60)
[2017-07-31 04:44] LABS: Blood Urea Nitrogen 2 mg/dL (7-20)
[2017-07-31 04:53] LABS: Platelet Estimate Normal (Normal)
[2017-07-31 04:54] LABS: Polychromasia 1+ (Not Present)
[2017-07-31] MEDS: *HR* Heparin 5,000 UNIT/ML VIAL SQ SCH ×2 (05:43→17:45)
[2017-07-31] MEDS: Pantoprazole 40 MG VIAL IVP SCH (06:11)
[2017-07-31] MEDS: Vitamin B Complex/Vit C/Vit E 1 EACH TABLET PO SCH (09:39)
[2017-07-31] MEDS: Thiamine (B-1) 100 MG TABLET PO SCH (09:39)
[2017-07-31] MEDS: Folic Acid 1 MG TABLET PO SCH (09:39)
[2017-07-31] MEDS: Acetaminophen 325 MG TABLET PO PRN (11:43)
--- NOTE | 2017-07-31 14:29 | Internal Med Progress Note ---
Date of Encounter: 07/31/17 Time of Encounter: 09:00 - Assessment and plan (1) Acute pancreatitis Current Visit: Yes Status: Acute Assessment and plan: Patient has abdominal pain with elevated lipase. History of alcoholism. History of similar pancreatitis previously. - We will continue IV fluid, advance to full liquid diet, cont pain management. - Follow up lipase level. Lipase trend down. - Had US abd on 07/25, no gall stone. Qualifiers: Pancreatitis type: alcohol induced Acute pancreatitis complication: no infection or necrosis Qualified Code(s): K85.20 - Alcohol induced acute pancreatitis without necrosis or infection (2) Hypokalemia Current Visit: Yes Status: Acute Assessment and plan: Still low potassium, will give supplement. Also check magnesium level (3) Alcohol abuse Current Visit: Yes Status: Chronic Assessment and plan: Education of alcohol cessation. Place patient on CIWA protocol for withdrawal prevention. flume worker consult for detox referral. (4) DVT prophylaxis Current Visit: Yes Status: Acute Assessment and plan: Heparin subcutaneously - Time Spent With Patient 25 - 35 minutes - Subjective Interval history: Patient was seen and examined. States abdominal pain has improved. Still has mild nausea. Mild fever 99.8, otherwise vitals stable. Lipase is trending down. Will further advance diet to full liquid. Continue CIWA protocol. No signs of alcohol withdraw. - Constitutional Vitals: Temp Pulse Resp BP Pulse Ox 97.4 F L 73 16 127/79 100 07/31/17 11:00 07/31/17 11:00 07/31/17 08:00 07/31/17 11:00 07/31/17 11:00 General appearance: Present: cooperative, A&O X 3, pleasant, no acute distress, answers questions appropriately - Head Head exam: Present: atraumatic, normocephalic - Eye Eye exam: Present: PERRL, conjuntiva pink, sclera anicteric Pupils: Present: PERRL - Neck Neck exam general surgery: Present: supple, trachea midline. Absent: lymphadenopathy - Respiratory Respiratory exam: Present: CTAB. Absent: accessory muscle use, rales, rhonchi, wheezes - Cardiovascular Cardiovascular exam: Present: RRR, +S1, +S2. Absent: diastolic murmur, gallop, rubs, systolic murmur - GI/Abdominal GI/Abdominal exam: Present: normal bowel sounds, soft, tenderness (Mild LUQ tenderness without rebound or guarding), no peritoneal signs. Absent: distended - Extremities Exam Extremities exam: Present: warm, radial pulses palpable and symmetrical. Absent : calf tenderness, cyanotic, pedal edema - Neurological Exam Neurological exam: Present: CN II-XII intact, oriented X3, no focal deficits. Absent: pronater drift, facial droop, speech deficit - Skin Skin exam: Present: dry, intact Internal Medicine: Result - Labs CBC & Chem 7: 07/31/17 03:25 07/31/17 03:25 Labs: Short CBC 07/31/17 Range/Units 03:25 WBC 4.1 L (4.3-11.1) K/mcL Hgb 9.7 L (11.5-15.4) g/dL Hct 29.4 L (35.3-44.9) % Plt Count 301 (140-400) K/mcL Neutrophils # 1.8 (1.6-8.9) K/mcL BMP 07/31/17 03:25 Sodium 140 Potassium 2.9 L Chloride 105 Carbon Dioxide 23 BUN 2 L Creatinine 0.49 L Glucose 115 H Calcium 8.5 L Liver Function 07/31/17 Range/Units 03:25 Total Bilirubin 0.5 (0.2-1.2) mg/dL AST 65 H (5-34) Units/L ALT 64 H (0-55) Units/L Alkaline Phosphatase 109 (38-126) Units/L Albumin 2.7 L (3.5-5.0) g/dL - ABG Interpretation ABG results: PT/INR, D-dimer PT 11.7 Seconds (9.4-12.1) 07/28/17 23:21 Consult Discharge Plan - Plan Referrals: Dejan Ratliff MD [Primary Care Provider] - 08/10/17 9:45 am
[2017-08-01] MEDS: *HR* HYDROmorphone (PF) 1 MG/ML SYRINGE IVP PRN ×3 (02:13→16:11)
[2017-08-01] MEDS: *HR* Heparin 5,000 UNIT/ML VIAL SQ SCH ×2 (04:41→16:14)
[2017-08-01 05:49] LABS: Basophils # 0.1 K/mcL (0.0-0.2); Basophils % 0.9 %; Eosinophils # 0.1 K/mcL (0.0-0.6); Eosinophils % 1.5 %; Hematocrit 29.9 % (35.3-44.9); Immature Granulocytes % 0.4 % (0-4); Lymphocytes # 1.5 K/mcL (0.6-4.6); Lymphocytes % 26.9 %; Mean Corpuscular HGB Conc 33.4 g/dL (31.6-35.5); Mean Corpuscular Hemoglobin 36.8 pg (28.0-33.3); Mean Corpuscular Volume 109.9 fL (83.0-100.0); Mean Platelet Volume 10.3 fL (9.4-12.4); Monocytes # 1.2 K/mcL (0.0-1.3); Monocytes % 21.9 %; Neutrophils # 2.6 K/mcL (1.6-8.9); Platelet Count 344 K/mcL (140-400); Red Blood Count 2.72 M/mcL (3.82-4.97); Red Cell Distribution Width 14.6 % (11.5-14.5); Segmented Neutrophils % 48.4 %
[2017-08-01 05:56] LABS: Alanine Aminotransferase 58 Units/L (0-55); Albumin 2.7 g/dL (3.5-5.0); Albumin/Globulin Ratio 0.8 (1.1-2.2); Alkaline Phosphatase 105 Units/L (38-126); Aspartate Amino Transferase 48 Units/L (5-34); BUN/Creatinine Ratio 4 (6-26); Bilirubin,Total 0.4 mg/dL (0.2-1.2); Calcium 9.2 mg/dL (8.6-10.8); Carbon Dioxide 29 mEq/L (19-29); Chloride 104 mEq/L (98-109); Globulin 3.5 g/dL (2.4-3.5); Glucose 122 mg/dL (70-99); Lipase 188 Units/L (8-78); Magnesium 1.3 mg/dL (1.6-2.6); Osmolality,Calculated 285 (280-300); Potassium 3.6 mEq/L (3.5-4.5); Sodium 139 mEq/L (136-145); Total Protein 6.2 g/dL (6.0-8.3); eGFR For African Americans > 60 (> 60); eGFR For Non-African Americans > 60 (> 60)
[2017-08-01 05:57] LABS: Blood Urea Nitrogen 2 mg/dL (7-20)
[2017-08-01 06:31] LABS: Platelet Estimate Normal (Normal)
[2017-08-01 06:34] LABS: Polychromasia 1+ (Not Present)
[2017-08-01] MEDS: Thiamine (B-1) 100 MG TABLET PO SCH (08:52)
[2017-08-01] MEDS: Folic Acid 1 MG TABLET PO SCH (08:52)
[2017-08-01] MEDS: Vitamin B Complex/Vit C/Vit E 1 EACH TABLET PO SCH (08:52)
--- NOTE | 2017-08-01 11:19 | Internal Med Progress Note ---
Date of Encounter: 08/01/17 Time of Encounter: 09:00 - Assessment and plan (1) Acute pancreatitis Current Visit: Yes Status: Acute Assessment and plan: Patient has abdominal pain with elevated lipase. History of alcoholism. History of similar pancreatitis previously. - We will continue IV fluid, advance to regular diet, cont pain management as needed. - Follow up lipase level. Lipase trend down. - Had US abd on 07/25, no gall stone. Qualifiers: Pancreatitis type: alcohol induced Acute pancreatitis complication: no infection or necrosis Qualified Code(s): K85.20 - Alcohol induced acute pancreatitis without necrosis or infection (2) Hypokalemia Current Visit: Yes Status: Acute Assessment and plan: Potassium level still at lower side, will give further supplement. Also has hypomeganesia, will give supplement. (3) Alcohol abuse Current Visit: Yes Status: Chronic Assessment and plan: Education of alcohol cessation. Place patient on CIWA protocol for withdrawal prevention. 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 (4) DVT prophylaxis Current Visit: Yes Status: Acute Assessment and plan: Heparin subcutaneously - Time Spent With Patient 25 - 35 minutes - Subjective Interval history: Patient was seen and examined. States abdominal pain has improved. Still has mild nausea. No fever overnight, otherwise vitals stable. Lipase is trending down to close to normal. Will further advance diet to regular. Continue CIWA protocol. No signs of alcohol withdraw. - Constitutional Vitals: Temp Pulse Resp BP Pulse Ox 98.9 F 78 16 127/85 96 08/01/17 07:04 08/01/17 07:04 08/01/17 07:04 08/01/17 07:04 08/01/17 07:04 General appearance: Present: cooperative, A&O X 3, pleasant, no acute distress, answers questions appropriately - Head Head exam: Present: atraumatic, normocephalic - Eye Eye exam: Present: PERRL, conjuntiva pink, sclera anicteric Pupils: Present: PERRL - Neck Neck exam general surgery: Present: supple, trachea midline. Absent: lymphadenopathy - Respiratory Respiratory exam: Present: CTAB. Absent: accessory muscle use, rales, rhonchi, wheezes - Cardiovascular Cardiovascular exam: Present: RRR, +S1, +S2. Absent: diastolic murmur, gallop, rubs, systolic murmur - GI/Abdominal GI/Abdominal exam: Present: normal bowel sounds, soft, tenderness (Mild LUQ tenderness), no peritoneal signs. Absent: distended - Extremities Exam Extremities exam: Present: warm, radial pulses palpable and symmetrical. Absent : calf tenderness, cyanotic, pedal edema - Neurological Exam Neurological exam: Present: CN II-XII intact, oriented X3, no focal deficits. Absent: pronater drift, facial droop, speech deficit - Skin Skin exam: Present: dry, intact Internal Medicine: Result - Labs CBC & Chem 7: 08/01/17 05:29 08/01/17 05:29 Labs: Short CBC 08/01/17 Range/Units 05:29 WBC 5.4 (4.3-11.1) K/mcL Hgb 10.0 L (11.5-15.4) g/dL Hct 29.9 L (35.3-44.9) % Plt Count 344 (140-400) K/mcL Neutrophils # 2.6 (1.6-8.9) K/mcL BMP 08/01/17 05:29 Sodium 139 Potassium 3.6 Chloride 104 Carbon Dioxide 29 BUN 2 L Creatinine 0.56 L Glucose 122 H Calcium 9.2 Liver Function 08/01/17 Range/Units 05:29 Total Bilirubin 0.4 (0.2-1.2) mg/dL AST 48 H (5-34) Units/L ALT 58 H (0-55) Units/L Alkaline Phosphatase 105 (38-126) Units/L Albumin 2.7 L (3.5-5.0) g/dL - ABG Interpretation ABG results: PT/INR, D-dimer PT 11.7 Seconds (9.4-12.1) 07/28/17 23:21 Consult Discharge Plan - Plan Referrals: Dejan Ratliff MD [Primary Care Provider] - 08/10/17 9:45 am
[2017-08-02 03:16] LABS: Basophils # 0.1 K/mcL (0.0-0.2); Basophils % 1.1 %; Eosinophils # 0.1 K/mcL (0.0-0.6); Eosinophils % 1.5 %; Hematocrit 31.8 % (35.3-44.9); Hemoglobin 10.5 g/dL (11.5-15.4); Immature Granulocytes % 0.5 % (0-4); Lymphocytes # 1.7 K/mcL (0.6-4.6); Lymphocytes % 26.9 %; Mean Corpuscular Hemoglobin 36.6 pg (28.0-33.3); Mean Corpuscular Volume 110.8 fL (83.0-100.0); Mean Platelet Volume 10.7 fL (9.4-12.4); Monocytes % 16.6 %; Neutrophils # 3.3 K/mcL (1.6-8.9); Platelet Count 420 K/mcL (140-400); Red Blood Count 2.87 M/mcL (3.82-4.97); Red Cell Distribution Width 14.6 % (11.5-14.5); Segmented Neutrophils % 53.4 %
[2017-08-02 03:33] LABS: Alanine Aminotransferase 55 Units/L (0-55); Albumin 2.8 g/dL (3.5-5.0); Albumin/Globulin Ratio 0.8 (1.1-2.2); Alkaline Phosphatase 103 Units/L (38-126); Aspartate Amino Transferase 64 Units/L (5-34); BUN/Creatinine Ratio 11 (6-26); Bilirubin,Total 0.3 mg/dL (0.2-1.2); Blood Urea Nitrogen 6 mg/dL (7-20); Calcium 9.5 mg/dL (8.6-10.8); Carbon Dioxide 30 mEq/L (19-29); Chloride 103 mEq/L (98-109); Globulin 3.5 g/dL (2.4-3.5); Glucose 116 mg/dL (70-99); Lipase 211 Units/L (8-78); Magnesium 2.1 mg/dL (1.6-2.6); Osmolality,Calculated 283 (280-300); Potassium 4.2 mEq/L (3.5-4.5); Sodium 137 mEq/L (136-145); Total Protein 6.3 g/dL (6.0-8.3); eGFR For African Americans > 60 (> 60); eGFR For Non-African Americans > 60 (> 60)
[2017-08-02 03:41] LABS: Macrocytosis Present (Not Present)
[2017-08-02] MEDS: *HR* HYDROmorphone (PF) 1 MG/ML SYRINGE IVP PRN (03:51)
[2017-08-02] MEDS: *HR* Heparin 5,000 UNIT/ML VIAL SQ SCH (05:37)
[2017-08-02 06:29] VITALS: BP 123/83
--- NOTE | 2017-08-02 09:28 | Discharge Summary ---
Date of Encounter: 08/02/17 Time of Encounter: 08:30 - Discharge Diagnosis (1) Acute pancreatitis Priority: Primary Status: Acute Qualifiers: Pancreatitis type: alcohol induced Acute pancreatitis complication: no infection or necrosis Qualified Code(s): K85.20 - Alcohol induced acute pancreatitis without necrosis or infection (2) Hypokalemia Priority: Secondary Status: Acute (3) Alcohol abuse Priority: Primary Status: Chronic (4) DVT prophylaxis Priority: Secondary Status: Acute - Discharge Medications Prescriptions: Folic Acid 1 mg PO DAILY #30 tablet Thiamine (B-1) [Vitamin B-1] 100 mg PO DAILY #30 tablet Vitamin B Complex/Vit C/Vit E [Stresstab] 1 each PO DAILY #30 tablet Home Medications: Folic Acid 1 mg PO DAILY #30 tablet 08/02/17 [Rx] Thiamine (B-1) [Vitamin B-1] 100 mg PO DAILY #30 tablet 08/02/17 [Rx] Vitamin B Complex/Vit C/Vit E [Stresstab] 1 each PO DAILY #30 tablet 08/02/17 [ Rx] Allergies/Adverse Reactions: 3 Allergy/AdvReac Type Severity Reaction Status Date / Time diphenhydramine Allergy Rash Verified 07/28/17 12:55 [From Benadryl] Penicillins [PCN] Allergy Rash Verified 07/28/17 12:55 Date of admission: 07/28/17 15:36 Primary care physician: Dejan Ratliff MD Consults: 07/28/17 23:07 Consult to Teletypesetter [CONS] Routine Reason for SW Consult: alcohol abuse, out patient treatment options. Discharging clinician: Ivan Pretty Anticipated date of discharge: 08/02/17 - Patient Status Disposition: Home, Self-Care Condition: Good Functional capacity at discharge: independent ambulation Overall status at discharge: patient is back to baseline - Discharge Instructions Follow Up With: Dejan Ratliff MD [Primary Care Provider] - 08/10/17 9:45 am - Diet and Activity Activity: increase activity as tolerated Diet: regular diet Hospital course: Ms. Stanley is a 37 year old female admitted for acute pancreatitis caused by alcoholism. Patient was treated with nothing by mouth, IV fluid, symptomatic treatment for nausea and abdominal pain. After treatment, her condition has improved. Lipase level trended down but not normalized. Patient tolerates regular diet well, denies abdominal pain. Patient has no alcohol withdraws during hospitalization. tank worker consult and detox resources provided, patient does not think she needs detox at this point. Patient is stable to discharge home. I saw and examined the patient today. Denies abdominal pain, nausea. On regular diet, tolerated well. Vitals are stable. Stable to discharge home and follow-up as outpatient with PCP. - Time Spent with Patient Total time spent providing and/or coordinating discharge services: 25 minutes Less than 30 minutes - Constitutional Vitals: Temp Pulse Resp BP Pulse Ox 99.4 F 80 16 123/83 99 08/02/17 06:28 08/02/17 06:28 08/02/17 06:28 08/02/17 06:28 08/02/17 06:28 General appearance: Present: cooperative, A&O X 3, pleasant, no acute distress, answers questions appropriately - Head Head exam: Present: atraumatic, normocephalic - Eye Eye exam: Present: PERRL, conjuntiva pink, sclera anicteric Pupils: Present: PERRL - Neck Neck exam general surgery: Present: supple, trachea midline. Absent: lymphadenopathy - Respiratory Respiratory exam: Present: CTAB. Absent: accessory muscle use, rales, rhonchi, wheezes - Cardiovascular Cardiovascular exam: Present: RRR, +S1, +S2. Absent: diastolic murmur, gallop, rubs, systolic murmur - GI/Abdominal GI/Abdominal exam: Present: normal bowel sounds, soft, no peritoneal signs. Absent: distended, tenderness - Extremities Exam Extremities exam: Present: warm, radial pulses palpable and symmetrical. Absent : calf tenderness, cyanotic, pedal edema - Neurological Exam Neurological exam: Present: CN II-XII intact, oriented X3, no focal deficits. Absent: pronater drift, facial droop, speech deficit - Skin Skin exam: Present: dry, intact
[2017-08-02] MEDS: Vitamin B Complex/Vit C/Vit E 1 EACH TABLET PO SCH (10:04)
[2017-08-02] MEDS: Acetaminophen 325 MG TABLET PO PRN (10:04)
[2017-08-02] MEDS: Folic Acid 1 MG TABLET PO SCH (10:04)
[2017-08-02] MEDS: Thiamine (B-1) 100 MG TABLET PO SCH (10:04)
== END 2017-08-02 12:30 | disposition home or self-care (01) | DRG 440 ==
LOC: EMEROO 12:34 → 3ANU 15:36
PROVIDERS: ADMIT Family Medicine; ATTEND Internal Medicine